=== PATIENT | female | born 1960 | race Caucasian/White ===

== ENCOUNTER 2020-07-11 17:57 | Emergency (ER) | payer MEDICAID, SELFPAY ==
[2020-07-11] VITALS (21 sets, daily range): BP systolic 141–213; BP diastolic 95–153; PULSE 93–144; RESP 12–24; TEMP 36.6; O2SAT 93–100
--- NOTE | ~2020-07-11 | XR_ITS ---
EXAMINATION: XR chest 1V portable DATE: 07/11/2020 19:37 INDICATION: Stroke presenting with weakness, confusion and left arm numbness. TECHNIQUE: frontal view of the chest was obtained. COMPARISON: None FINDINGS: The lungs are clear with no focal airspace opacities, pulmonary edema, pleural effusion or pneumothor ax. The cardiomediastinal silhouette is normal. Postoperative change of prior median sternotomy and l eft atrial appendage clipping. Bones and soft tissues are unremarkable. IMPRESSION: 1. No acute cardiopulmonary disease. Reviewed, dictated and finalized at location A.
--- NOTE | ~2020-07-11 | CT_ITS ---
EXAMINATION: CT brain wo con DATE: 07/11/2020 19:47 INDICATION: Stroke presenting with confusion and left arm numbness. TECHNIQUE: Computed tomography (CT) of the head was performed without intravenous contrast. Sagittal and coronal reconstructions were performed. The mA was adjusted according to patient size. Iterative reconstruction technique was employed. The dose-length product was 605.33 mGy-cm. COMPARISON: None FINDINGS: (3-4 mm hyperdense focus at the left thalamus which could represent small amount of hemorrhage or dys trophic calcification. No acute acute infarction or abnormal extra axial fluid collection. There is m oderate scattered white matter hypoattenuation consistent with chronic small vessel ischemic disease. Ventricles are normal and symmetric. No mass/mass effect. The orbits, paranasal sinuses and mastoid air cells are normal. IMPRESSION: 1. Indeterminate 3 to 4 mm hyperdense focus at the left thalamus which could represent a tiny intrapa renchymal hemorrhage or dystrophic calcification. 2. Moderate scattered white matter hypoattenuation consistent with chronic small vessel ischemic dise ase. Reviewed, dictated and finalized at location A. IMPRESSION: 1. Indeterminate 3 to 4 mm hyperdense focus at the left thalamus which could re present a tiny intraparenchymal hemorrhage or dystrophic calcification. 2. Moderate scattered white matter hypoattenuation consistent with chronic smal l vessel ischemic disease.
--- NOTE | 2020-07-11 19:03 | ECG_ITS ---
Measurements Intervals [place] Rate: 113 P: [place]: 0 QRS: 2 QRSD: 89 T: 8 QT: 366 QTc: 502 Interpretive Statements ATRIAL FLUTTER/TACHYCARDIA WITH RAPID VENTRICULAR RESPONSE ST-T WAVE ABNORMALITY IN ANTEROLAT/INF LEADS- CONSIDER ISCHEMIA BASELINE ARTIFACT- I, II, III, AVR, AVL, AVF, V1, V3-V6 ABNORMAL ECG Electronically Signed On 07-12-2020 7:09:36 CDT by Masoud Jose D.O.
--- NOTE | 2020-07-11 19:16 | PC.NURSE ---
Report given to Supriya CELAYA
--- NOTE | 2020-07-11 19:27 | ED.GENADULT ---
HPI - General Adult General Chief complaint: Neuro Symptoms/Deficit Stated complaint: possible seizure, confusion Time Seen by Provider: 07/11/20 19:17 Source: patient and RN notes reviewed Mode of arrival: ambulatory Limitations: no limitations History of Present Illness HPI narrative: Patient 60 years old white female brought to the emergency room by her daughter from home, complaining of not feeling good for 3 weeks. Also intermittent vomiting, once or twice a day for about 3 to 4 days a week for the last few weeks. Currently feeling dry, nauseated with poor appetite.. Patient reports some numbness of the left upper extremity yesterday lasted for few minutes and then resolved. History of diabetes, stopped taking her Metformin for months, history of hyperlipidemia, does not like to take the cholesterol medication. History of heart surgery in [place] February 2020. Also history of CVA with residual left facial drooping. Patient stopped smoking in May., Currently denying any fever, chills, chest pain, shortness of breath or back pain or headache. Related Data Home Medications Medication Instructions Recorded Confirmed buspirone 10 mg PO TID 07/11/20 07/11/20 citalopram 20 mg PO DAILY 07/11/20 07/11/20 furosemide 40 mg PO BID 07/11/20 07/11/20 losartan 25 mg PO DAILY 07/11/20 07/11/20 metformin 500 mg PO BID 07/11/20 07/11/20 metoprolol tartrate 50 mg PO BID 07/11/20 07/11/20 potassium chloride 20 meq PO DAILY 07/11/20 07/11/20 warfarin 5 mg PO DAILY 07/11/20 07/11/20 Allergies Allergy/AdvReac Type Severity Reaction Status Date / Time No Known Allergies Allergy Verified 07/06/20 08:17 Review of Systems Review of Systems: Narrative: CONSTITUTIONAL: Denies fever, chills, or sweats. EYES: Denies visual changes, redness, or discharge. ENT: Denies rhinorrhea, congestion, sore throat, or otalgia. CARDIOVASCULAR: Denies chest pain, palpitations, or edema. RESPIRATORY: Denies cough or dyspnea. GASTROINTESTINAL: Denies abdominal pain, nausea, vomiting, or diarrhea. GENITOURINARY: Denies dysuria or hematuria. SKIN: Denies rash or itching. MUSCULOSKELETAL: Denies back pain, joint pain, or myalgia. NEUROLOGIC: Denies headache, numbness, or weakness. PSYCHIATRIC: Denies anxiety or depression. FOR[facility]LY [facility], [facility] Past Medical History Medical History Heart attack Stroke Family History Family History Father Hypertension Depression Heart problem Cerebrovascular accident Mother Hypertension Heart problem Depression Cerebrovascular accident Social History Social History Smoking status: Never smoker Alcohol intake: never Substance use: never Gender identity (if verbalized by the patient): Female Exam Narrative: Exam Narrative: General appearance: Well-developed, well-nourished, no family member at the bedside Skin: Normal color Head: Normocephalic, nontraumatic Eyes: Clear conjunctiva ENT: Oropharynx normal, ears normal, nose normal Neck: Supple, nontender Chest and respiratory: Airway patent, no respiratory distress, no accessory muscle use Heart: Tachycardia Abdomen: Soft, nontender, no organomegaly, quiet bowel sounds Vascular: Normal peripheral pulses, normal capillary refill. Musculoskeletal: Normal range of motion, nontender back Neurologic: Alert and oriented ?3, left facial drooping Course Course Emergency Course: Stable Consultations Consultation #1: DR LOPEZ, neurologist at [facility] who accepted patient transfer to ICU Date: 07/11/20 Time: 22:00 Vital Signs
[2020-07-11] MEDS: SODIUM CHLORIDE 0.9% IV 1,000 ML 999 ML IV CONT ×2 (19:55→21:20)
[2020-07-11] MEDS: ONDANSETRON INJ 4 MG/2 ML VIAL IV PUSH (19:57)
[2020-07-11] MEDS: dilTIAZem HCl INJ 25 MG/5 ML VIAL 10 MG IV PUSH ×2 (19:58→23:05)
[2020-07-11 20:07] LABS: Basophils Absolute Auto 0.1 K/mm3 (0.0-0.1); Basophils Percent Auto 0.6 % (0.2-1.2); Eosinophils Absolute Auto 0.1 K/mm3 (0-0.3); Eosinophils Percent Auto 0.7 % (0-4.4); Hematocrit 49.1 % (37.0-47.0); Immature Granulocyte Absolute 0.03 K/mm3 (0.00-0.031); Immature Granulocyte Percent A 0.4 % (0-0.5); Lymphocytes Absolute Auto 0.85 K/mm3 (0.9-3.2); Lymphocytes Percent Auto 10.1 % (18.3-44.2); Mean Corpuscular HGB Conc 30.5 g/dl (32-36); Mean Corpuscular Hemoglobin 27.8 pg (26-34); Mean Corpuscular Volume 91.1 fl (80-100); Mean Platelet Volume 11.9 fl (7.4-10.4); Monocytes Absolute Auto 0.8 K/mm3 (0.1-0.6); Monocytes Percent Auto 8.9 % (2.6-8.5); Neutrophils Absolute Auto 6.7 K/mm3 (1.3-6.7); Neutrophils Percent Auto 79.3 % (45.5-73.1); Platelet Count Result 276 k/mm3 (150-375); Red Blood Count 5.39 M/mm3 (4.2-5.4); Red Cell Distribution Width 15.4 % (11.5-14.5); White Blood Count 8.4 K/mm3 (4.5-10.0)
--- NOTE | 2020-07-11 20:20 | PC.NURSE ---
pt lives at home with family. daughter in law at bedside. pt reports she has been vomiting daily x approx. 1 month, poor appetite and nausea as well. ambulates independently at home without assist. c/o increasing weakness for last month. family states she was acting differently . Pt able to communicate verbally using appropriate language. cardizem bolus administered with documentation on MAY, as well as cardizem infusion. zofran given for nausea. pt currently c/o dry mouth and has ice chips at bedside. On cardiac cath technician.
[2020-07-11 20:23] LABS: INR 1.9; Prothrombin Time 22.6 Seconds (11.1-14.7)
[2020-07-11 20:28] LABS: NT Pro B Type Natriuretic Pept 1550 pg/mL (5-100); Troponin I 0.028 ng/mL (0.000-0.034)
--- NOTE | 2020-07-11 20:30 | PC.NURSE ---
called lab, Jaime, added on 2029
[2020-07-11 20:42] LABS: Alanine Aminotransferase 20 U/L (4-35); Albumin Level 4.2 g/dL (3.5-5.1); Alkaline Phosphatase 216 U/L (38-126); Anion Gap 14 mmol/L (8-16); Aspartate Amino Transferase 25 U/L (14-36); Bilirubin,Total 0.6 mg/dL (0.2-1.3); Blood Urea Nitrogen 22 mg/dL (7-17); Calcium 10.1 mg/dL (8.4-10.2); Carbon Dioxide 27 mmol/L (22-30); Chloride 85 mmol/L (98-107); Estimated CRCL calculation 35 ml/min; Estimated Glomerular Filt Rate 38; Glucose 979 mg/dL (65-105); Potassium 4.5 mmol/L (3.4-5.0); Sodium 126 mmol/L (137-145)
[2020-07-11 20:53] LABS: Glucose Point of Care > 500 (65-105)
--- NOTE | 2020-07-11 20:59 | PC.NURSE ---
called stepan to add on additional labs
[2020-07-11 21:07] LABS: Magnesium 2.1 mg/dL (1.6-2.3); Phosphorus 3.7 mg/dL (2.5-4.5)
[2020-07-11 21:15] LABS: Alveolar/Arterial O2 Gradient 43.3 mmHg; Base Excess ABG 2.6 mEq/l (+/-2.0); Fractional Inspired Oxygen 21 %; HCO3 ABG 24.2 mEq/l (22.0-26.0); Oxygen Content ABG 19.8 %vol (16.0-22.0); Oxygen Saturation ABG 96.1 % (95.0-100.0); Oxyhemoglobin 94.1 % THb (90.0-100.0); PCO2 ABG 29.3 mmHg (35.0-45.0); PO2 ABG 71.3 mmHg (80.0-100.0)
[2020-07-11 21:17] LABS: Device ROOM AIR; Modified Allen's Test Pass; Site Drawn LEFT RADIAL; pH ABG 7.534 (7.350-7.450)
[2020-07-11 22:00] LABS: Glucose Point of Care > 500 (65-105)
[2020-07-11] MEDS: INSULIN HUMAN REGULAR (*BKC) 100 UNITS in SODIUM CHLORIDE 0.9% IV 99 ML 18.4 UNITS IV CONT (22:03)
[2020-07-11] MEDS: INSULIN HUMAN REGULAR (*BKC) 100 UNITS/ML 8 UNITS IV PUSH (22:04)
--- NOTE | 2020-07-11 22:15 | PC.NURSE ---
[facility] not available for quite awhile. called [facility] to request transport. ETA midnight
[2020-07-11 22:30] LABS: Add Urine Microscopic? YES; Appearance Urine Clear (Clear); Bilirubin Urine Negative (Negative); Blood Urine Negative (Negative); Color Urine Straw (Yellow); Glucose Urine UA 3+ mg/dL (Negative); Ketones Urine Negative (Negative); Leukocyte Esterase Ur Negative LEU/UL (Negative); Nitrate Urine Negative (Negative); Protein Urine 1+ mg/dL (Negative); RBC Urine 0-2 /hpf (0-2); Specific Grav Ur 1.028 (1.001-1.035); Squamous Epithelial Cell Urine Occasional /hpf (Few); Urobilinogen Urine Negative mg/dL (<2.0); WBC Urine 0-3 /hpf
--- NOTE | 2020-07-11 22:41 | PC.NURSE ---
called [facility] to request transport. ETA 30 minutes.
[2020-07-11 22:48] LABS: Glucose Point of Care > 500 (65-105)
--- NOTE | 2020-07-11 22:55 | PC.NURSE ---
cancel [facility].
--- NOTE | 2020-07-12 04:48 | PC.NURSE ---
Pt transferred to [facility] ICU for neuro. family provided with address and phone number of main hospital profiler operator, as well as pt assigned room number. Pt on stretcher with EMS and consents to transfer. ED BELIA Reyes with EMS crew for transportation of pt with infusing insulin drip.
== END 2020-07-11 23:30 | disposition short-term general hospital (02) ==
PROVIDERS: Emergency Provider Emergency Medicine; PCP Family Medicine
DX: I61.9 Nontraumatic intracerebral hemorrhage, unspecified (principal); I48.92 Unspecified atrial flutter; E11.01 Type 2 diabetes mellitus with hyperosmolarity with coma; Z87.891 Personal history of nicotine dependence; I25.2 Old myocardial infarction; I69.992 Facial weakness following unspecified cerebrovascular disease; Z91.14 Patient's other noncompliance with medication regimen; Z79.01 Long term (current) use of anticoagulants
CPT/HCPCS: 36415; 36600; 70450; 71045; 80053; 81001; 82805; 82948; 83036; 83735; 83880; 84100; 84443; 84484; 85025; 85610; 93005; 96365; 96366; 96368; 96375; 99291; J1815; J2405; J7030

== ENCOUNTER 2020-08-06 19:09 | Emergency (ER) | payer OTHER, SELFPAY ==
--- NOTE | ~2020-08-06 | XR_ITS ---
XR chest 1V portable 08/06/2020 19:43 Indication: Headache. Open heart surgery. Hypertension. COPD. Procedure: AP portable chest Comparison: 07/11/2020 Findings: Status post median sternotomy for CABG. Heart size normal. There are infiltrates of the lef t mid and lower lung zones. No pleural effusion or pneumothorax. Impression: 1: Infiltrates of the left mid and bilateral lower lung zones which may represent atelectasis, edema or developing pneumonia. Reviewed, dictated and finalized at location A. Impression: 1: Infiltrates of the left mid and bilateral lower lung zones which may represe nt atelectasis, edema or developing pneumonia.
--- NOTE | ~2020-08-06 | CT_ITS ---
EXAMINATION: CT BRAIN W/O DATE: 08/06/2020 19:51 INDICATION: Blurred vision. Recent history of brain bleed. TECHNIQUE: Computed tomography (CT) of the head was performed without intravenous contrast. The dose- length product was 605.33 mGy-cm. Automated exposure control and iterative reconstruction technique w ere employed. COMPARISON: CT dated 07/11/2020 FINDINGS: Normal brain parenchymal volume for age. Normal shane-white differentiation. No acute intrac ranial hemorrhage, infarction, mass or mass effect. There are scattered moderate periventricular and subcortical white matter changes, most likely related to small vessel ischemic disease (microangiopat hy). There is focal calcification in the left thalamus. No ventriculomegaly or midline shift. Midline sagittal images demonstrate a normal corpus callosum, c raniovertebral junction and sella turcica. Basilar cisterns are patent. Paranasal sinuses and mastoids are pneumatized. No depressed skull fractures. IMPRESSION: 1. No acute intracranial abnormality. 2: Chronic age-related findings. Reviewed, dictated and finalized at location A.
[2020-08-06 19:12] VITALS: BP 156/82; PULSE 75; RESP 16; TEMP 36.4; O2SAT 97
--- NOTE | 2020-08-06 19:21 | ED.HA ---
HPI - Headache General Chief Complaint: Headache Stated Complaint: blurred vision Time Seen by Provider: 08/06/20 19:18 Source: patient, family and RN notes reviewed Mode of arrival: ambulatory Limitations: no limitations History of Present Illness HPI Narrative: Patient 60 years old white female brought to the emergency room by her daughter because of intermittent headache, intermittent blurry vision for the last few weeks. Got worse today while cooking. Patient reported that the headache is diffuse all over, and cannot see well, everything is fuzzy. Patient usually takes Tylenol with improvement. Was seen by her family physician 4 days ago and was told to follow-up with correctional casework specialist. Patient came to our emergency room on July 11 and was diagnosed of intracranial hemorrhage and transferred to [facility] at that time. History of diabetes, hyper lipidemia. Patient denies any fever, chills, nausea, vomiting, chest pain, shortness of breath or abdominal pain. Patient denies a focal neuro deficit.. Patient moved to stay with her daughter May 2020, because having trouble with her vision went to correctional casework specialist and had bifocal glasses. Patient did not like it and did not wear it. Related Data Home Medications Medication Instructions Recorded Confirmed buspirone 10 mg PO TID 07/11/20 07/11/20 citalopram 20 mg PO DAILY 07/11/20 07/11/20 furosemide 40 mg PO BID 07/11/20 07/11/20 losartan 25 mg PO DAILY 07/11/20 07/11/20 metformin 500 mg PO BID 07/11/20 07/11/20 metoprolol tartrate 50 mg PO BID 07/11/20 07/11/20 potassium chloride 20 meq PO DAILY 07/11/20 07/11/20 warfarin 5 mg PO DAILY 07/11/20 07/11/20 Allergies Allergy/AdvReac Type Severity Reaction Status Date / Time No Known Allergies Allergy Verified 07/06/20 08:17 Review of Systems Review of Systems: Narrative: CONSTITUTIONAL: Denies fever, chills, or sweats. EYES: Denies visual changes, redness, or discharge. ENT: Denies rhinorrhea, congestion, sore throat, or otalgia. CARDIOVASCULAR: Denies chest pain, palpitations, or edema. RESPIRATORY: Denies cough or dyspnea. GASTROINTESTINAL: Denies abdominal pain, nausea, vomiting, or diarrhea. GENITOURINARY: Denies dysuria or hematuria. SKIN: Denies rash or itching. MUSCULOSKELETAL: Denies back pain, joint pain, or myalgia. NEUROLOGIC: Denies headache, numbness, or weakness. PSYCHIATRIC: Denies anxiety or depression. PMFSH Past Medical History Medical History Heart attack Stroke Family History Family History Father Hypertension Depression Heart problem Cerebrovascular accident Mother Hypertension Heart problem Depression Cerebrovascular accident Social History Social History Smoking status: Never smoker Alcohol intake: never Substance use: never Gender identity (if verbalized by the patient): Female Exam Narrative: Exam Narrative: General appearance: Well-developed, well-nourished. Daughter at the bedside Skin: Normal color Head: Normocephalic, nontraumatic Eyes: Clear conjunctiva ENT: Oropharynx normal, ears normal, nose normal Neck: Supple, nontender Chest and respiratory: Airway patent, no respiratory distress, no accessory muscle use Heart: Regular rate/rhythm Abdomen: Soft, nontender, no organomegaly, quiet bowel sounds Vascular: Normal peripheral pulses, normal capillary refill. Musculoskeletal: Normal range of motion, nontender back Neurologic: Alert and oriented ?3, END MATCHER is normal as tested, no gross motor deficit Course Course Emergen
--- NOTE | 2020-08-06 19:30 | ECG_ITS ---
Measurements Intervals [place] Rate: 69 P: 83 [place]: 312 QRS: 10 QRSD: 88 T: 50 QT: 447 QTc: 481 Interpretive Statements SINUS RHYTHM WITH FIRST DEGREE AV BLOCK BORDERLINE ST-T WAVE ABNORMALITY- LAT/HIGH LAT LEADS ABNORMAL ECG Electronically Signed On 08-07-2020 6:00:42 CDT by Masoud Jose D.O.
[2020-08-06 19:42] LABS: Basophils Absolute Auto 0.1 K/mm3 (0.0-0.1); Basophils Percent Auto 0.9 % (0.2-1.2); Eosinophils Absolute Auto 0.5 K/mm3 (0-0.3); Eosinophils Percent Auto 5.6 % (0-4.4); Hematocrit 34.3 % (37.0-47.0); Hemoglobin 10.6 g/dL (12.0-15.0); Immature Granulocyte Absolute 0.03 K/mm3 (0.00-0.031); Immature Granulocyte Percent A 0.4 % (0-0.5); Lymphocytes Absolute Auto 1.42 K/mm3 (0.9-3.2); Lymphocytes Percent Auto 17.7 % (18.3-44.2); Mean Corpuscular HGB Conc 30.9 g/dl (32-36); Mean Corpuscular Hemoglobin 27.5 pg (26-34); Mean Corpuscular Volume 88.9 fl (80-100); Mean Platelet Volume 9.4 fl (7.4-10.4); Monocytes Absolute Auto 0.6 K/mm3 (0.1-0.6); Monocytes Percent Auto 7.9 % (2.6-8.5); Neutrophils Absolute Auto 5.4 K/mm3 (1.3-6.7); Neutrophils Percent Auto 67.5 % (45.5-73.1); Platelet Count Result 290 k/mm3 (150-375); Red Blood Count 3.86 M/mm3 (4.2-5.4); Red Cell Distribution Width 15.3 % (11.5-14.5)
[2020-08-06 19:52] LABS: Alanine Aminotransferase 18 U/L (4-35); Albumin Level 3.9 g/dL (3.5-5.1); Alkaline Phosphatase 98 U/L (38-126); Anion Gap 7 mmol/L (8-16); Aspartate Amino Transferase 34 U/L (14-36); Bilirubin,Total 0.7 mg/dL (0.2-1.3); Blood Urea Nitrogen 35 mg/dL (7-17); Calcium 9.7 mg/dL (8.4-10.2); Carbon Dioxide 25 mmol/L (22-30); Chloride 109 mmol/L (98-107); Estimated CRCL calculation 35 ml/min; Estimated Glomerular Filt Rate 31; Glucose 72 mg/dL (65-105); Potassium 4.1 mmol/L (3.4-5.0); Sodium 141 mmol/L (137-145)
[2020-08-06 20:02] VITALS: BP 135/89; PULSE 73; RESP 20; O2SAT 94
[2020-08-06] MEDS: MORPHINE SULFATE (*CRX) 4 MG/ML INJ IV PUSH (20:13)
[2020-08-06] MEDS: ONDANSETRON INJ 4 MG/2 ML VIAL IV PUSH (20:13)
[2020-08-06 20:37] LABS: Add Urine Microscopic? YES; Appearance Urine Clear (Clear); Bilirubin Urine Negative (Negative); Blood Urine Negative (Negative); Color Urine Yellow (Yellow); Glucose Urine UA Negative (Negative); Ketones Urine Negative (Negative); Leukocyte Esterase Ur 2+ LEU/UL (Negative); Mucus Urine Rare /lpf; Nitrate Urine Negative (Negative); Protein Urine 1+ mg/dL (Negative); RBC Urine 0-2 /hpf (0-2); Specific Grav Ur 1.014 (1.001-1.035); Squamous Epithelial Cell Urine Moderate /hpf (Few); Urobilinogen Urine Negative mg/dL (<2.0)
[2020-08-06 21:31] VITALS: BP 127/78; PULSE 77; RESP 20; O2SAT 97
== END 2020-08-06 21:46 | disposition home or self-care (01) ==
PROVIDERS: Emergency Provider Emergency Medicine
DX: H53.9 Unspecified visual disturbance (principal); R51.9 Headache, unspecified; I44.0 Atrioventricular block, first degree; Z86.73 Personal history of transient ischemic attack (TIA), and cerebral infarction without residual deficits; I25.2 Old myocardial infarction
CPT/HCPCS: 36415; 70450; 71045; 80053; 81001; 85025; 87086; 93005; 96374; 96375; 99284; J2270; J2405

== ENCOUNTER 2020-10-07 09:24 | Inpatient (IN) | payer OTHER, SELFPAY ==
[2020-10-07] VITALS (26 sets, daily range): BP systolic 137–160; BP diastolic 75–119; PULSE 75–98; RESP 15–28; TEMP 36.4–37.2; O2SAT 94–100; BMI 36.3
--- NOTE | ~2020-10-07 | XR_ITS ---
XR chest 2V DATE: 10/07/2020 09:54 INDICATION: Shortness of breath. COPD. TECHNIQUE: PA and lateral views COMPARISON: 08/02/2020 portable AP chest FINDINGS: Status post sternotomy. Mild cardiomegaly. Aortic calcification and tortuosity. There is mild patchy infiltrate or atelectasis in the right mid to upper lung zone. Mild discoid atelectasis or scarring in the lateral left midlung. No pleural effusion or pulmonary vascular congestion or pneumothorax. Diffuse osteopenia. Status post cholecystectomy. IMPRESSION: Mild cardiomegaly Aortic calcification and tortuosity Mild discoid atelectasis or scarring in the lateral left midlung Mild infiltrate in the right mid-upper lung Reviewed, dictated and finalized at location A.
--- NOTE | ~2020-10-07 | CT_ITS ---
EXAMINATION: CT chest high resolution [facility] EXAM DATE: 10/10/2020 16:23 INDICATION: Dyspnea on exertion, history of COPD. TECHNIQUE: Spiral CT of the chest without contrast. HRCT. Axial, coronal and sagittal images of the c hest were reviewed. Coronal maximum intensity pixel images of chest reviewed. The dose-length produ ct (DLP) for this examination was 187.59 mGy-cm. The exposure was tailored according to patient size (auto mA exposure control), and iterative reconstruction (ASIR) was used as additional dose reductio n technique. Correlation is made to chest x-ray from 10/07. FINDINGS: No intralobular septal thickening on the HRCT. There is mild emphysema and hyperinflation. Regions of numerous punctate tree-in-bud opacities involving the upper lobes, likely postinfectious r esidua. No suspicion of acute airspace disease. There is mosaic attenuation involving both lungs. Thi s is suspected to be most likely air trapping. Differential diagnosis for this includes air trapping (asthma, bronchiolitis obliterans), vasculitis, or less likely chronic groundglass opacity. Heart is normal in size. There are sternotomy wires and there is mitral valve replacement. There are no pleural or pericardial effusions. Tracheobronchial tree is patent. Mild mediastinal lymphaden opathy, probably reactive. There is no pneumothorax. No evidence of coronary arterial calcificatio n. Upper abdomen is unremarkable. There is thoracic spondylosis without osteoblastic or osteolytic lesions identified. IMPRESSION: 1. Mosaic attenuation suspected most likely air trapping, small airways disease. 2. Mild emphysema and hyperinflation. 3. Mild mediastinal lymphadenopathy likely reactive. 4. Postinfectious residua. Reviewed, dictated and finalized at location B. IMPRESSION: 1. Mosaic attenuation suspected most likely air trapping, small airways diseas e. 2. Mild emphysema and hyperinflation. 3. Mild mediastinal lymphadenopathy likely reactive. 4. Postinfectious residua.
--- NOTE | 2020-10-07 09:33 | ECG_ITS ---
Measurements Intervals [place] Rate: 90 P: 255 TX: 288 QRS: -13 QRSD: 85 T: 41 QT: 365 QTc: 447 Interpretive Statements SINUS OR ECTOPIC ATRIAL RHYTHM DELAYED PRECORDIAL R/S TRANSITION LOW QRS VOLTAGE IN PRECORDIAL LEADS BORDERLINE ST-T WAVE ABNORMALITY- LAT/HIGH LAT LEADS BASELINE ARTIFACT- I, II, III, AVR, AVL, AVF, V1-V6 ABNORMAL ECG Electronically Signed On 10-07-2020 16:20:18 CDT by Masoud Jose D.O.
--- NOTE | 2020-10-07 09:34 | ED.SOB ---
HPI - SOB/Dyspnea General Chief Complaint: Shortness of Breath/Dyspnea Stated Complaint: SOB Time Seen by Provider: 10/07/20 09:32 History of Present Illness HPI Narrative: 60 yo female w/ h/o CHF, vavle replacement, htn, DM presents to the ED for SOB. She has had increased SOB for the past 3 days. Worse with exertion. Associated with mild cough and dependent edema. She does not remember who her television tube inspector is. She has had her covid-19 vaccination. Related Data Home Medications Medication Instructions Recorded Confirmed buspirone 10 mg PO DAILY 07/11/20 10/07/20 furosemide 40 mg PO DAILY 07/11/20 10/07/20 metoprolol tartrate 50 mg PO BID 07/11/20 10/07/20 potassium chloride 10 meq PO HS 07/11/20 10/07/20 warfarin 5 mg PO QMWFSU 07/11/20 10/07/20 amlodipine 10 mg PO HS 10/07/20 10/07/20 insulin glargine [Lantus Solostar 36 unit SUBCUT DAILY 10/07/20 10/07/20 U-100 Insulin] insulin lispro [Humalog KwikPen 10 unit SUBCUT TIDWM 10/07/20 10/07/20 Insulin] [id number] 1 tablet PO DAILY 10/07/20 10/07/20 [Alive Women's Gummy Vitamin] sertraline 25 mg PO DAILY 10/07/20 10/07/20 warfarin 4 mg PO QTUTHSA 10/07/20 10/07/20 Allergies Allergy/AdvReac Type Severity Reaction Status Date / Time simvastatin [From Zocor] AdvReac Hypotension Verified 10/07/20 09:34 Review of Systems Review of Systems: All systems reviewed & are unremarkable except as noted in HPI and below Constitutional: Constitutional: Denies chills and Denies fever(s) ENT: Denies sore throat Cardiovascular: Cardiovascular: Denies chest pain Respiratory: Respiratory: Reports cough and Reports dyspnea Gastrointestinal: Gastrointestinal: Reports no additional gastrointestinal complaints Genitourinary: Genitourinary: Reports no additional female genitourinary complaints Musculoskeletal: Musculoskeletal: Denies back pain Neurologic: Reports system reviewed and no additional complaints, except as documented [facility] Past Medical History Medical History Heart attack Stroke Family History Family History Father Hypertension Depression Heart problem Cerebrovascular accident Mother Hypertension Heart problem Depression Cerebrovascular accident Social History Social History Smoking status: Never smoker Alcohol intake: never Substance use: never Gender identity (if verbalized by the patient): Female Spiritual care concerns: No Exam Const: General: no acute distress and alert Orientation/consciousness: patient oriented x3 HENMT: Head: normal to inspection Chest: Chest palpation & inspection: normal inspection of the chest and no tenderness Resp: Effort & Inspection: tachypneic Auscultation: rhonchi Cardio: Rate: regular rate Rhythm: regular rhythm GI: GI Palp: Yes Soft to palpation and No Tenderness to palpation present (GI) Skin: General skin exam: normal color Neuro: General: patient oriented x3, moves all extremities and no focal motor deficits Speech: normal speech Extrem: General: edema bilateral (mild) Course Vital Signs Vital signs: Vital Signs Temperature 36.9 C 10/07/20 09:29 Pulse Rate 92 10/07/20 09:29 Respiratory Rate 26 H 10/07/20 09:29 Blood Pressure 160/98 H 10/07/20 09:29 Pulse Oximetry 97 10/07/20 09:29 Temperature 36.4 C 10/07/20 17:05 Pulse Rate 91 10/07/20 17:27 Respiratory Rate 18 10/07/20 17:05 Blood Pressure 150/75 H 10/07/20 17:05 Pulse Oximetry 96 10/07/20 17:05 MDM - SOB/Dyspnea MDM Narrative Medical decision making narrative: Mild infiltrate on x-ray. BNP>3000. Mild desaturation with ambulation. Most likely CHF exacerbation. Lab Data Result diagrams: 10/07/20 09:45 10/07/20 09:45 Labs: Lab Results 10/07/20 072
[2020-10-07 09:56] LABS: Basophils Absolute Auto 0.1 K/mm3 (0.0-0.1); Basophils Percent Auto 0.5 % (0.2-1.2); Eosinophils Absolute Auto 0.2 K/mm3 (0-0.3); Eosinophils Percent Auto 2.4 % (0-4.4); Hemoglobin 11.4 g/dL (12.0-15.0); Immature Granulocyte Absolute 0.03 K/mm3 (0.00-0.031); Immature Granulocyte Percent A 0.3 % (0-0.5); Lymphocytes Percent Auto 9.1 % (18.3-44.2); Mean Corpuscular HGB Conc 29.2 g/dl (32-36); Mean Corpuscular Volume 88.8 fl (80-100); Mean Platelet Volume 9.7 fl (7.4-10.4); Monocytes Absolute Auto 0.6 K/mm3 (0.1-0.6); Monocytes Percent Auto 5.5 % (2.6-8.5); Neutrophils Absolute Auto 8.2 K/mm3 (1.3-6.7); Neutrophils Percent Auto 82.2 % (45.5-73.1); Platelet Count Result 208 k/mm3 (150-375); Red Blood Count 4.39 M/mm3 (4.2-5.4); Red Cell Distribution Width 15.9 % (11.5-14.5); White Blood Count 9.9 K/mm3 (4.5-10.0)
[2020-10-07 10:09] LABS: Anion Gap 10 mmol/L (8-16); Blood Urea Nitrogen 30 mg/dL (7-17); Calcium 9.7 mg/dL (8.4-10.2); Carbon Dioxide 19 mmol/L (22-30); Chloride 113 mmol/L (98-107); Estimated CRCL calculation 35 ml/min; Estimated Glomerular Filt Rate 35; Glucose 119 mg/dL (65-110); Potassium 4.4 mmol/L (3.4-5.0); Sodium 142 mmol/L (137-145)
--- NOTE | 2020-10-07 10:37 | PC.NURSE ---
Marcelo called lab and talked to prasanna stout on a BNP at 1037
[2020-10-07 10:55] LABS: NT Pro B Type Natriuretic Pept 3130 pg/mL (5-100)
--- NOTE | 2020-10-07 11:00 | PC.NURSE ---
Marcelo called lab, Jazmin, added on PT INR, PTT
--- NOTE | 2020-10-07 11:16 | PC.NURSE ---
pt ambulatory to bathroom. upon returning to room pt sob, tachypneic. pulse ox 90%. recovered upon resting for a short time. pulse ox increased to 98% room air. family at bedside.
[2020-10-07] MEDS: FUROSEMIDE INJ 40 MG/4 ML VIAL IV PUSH ×2 (11:53→20:32)
[2020-10-07 12:03] LABS: Glucose Point of Care 81 mg/dl (65-105)
--- NOTE | 2020-10-07 12:04 | PC.NURSE ---
talisha called lab again, viktoria, asked about pt inr ptt
[2020-10-07 12:23] LABS: INR 2.2; Prothrombin Time 23.7 Seconds (11.1-14.7)
[2020-10-07 12:24] LABS: Partial Thromboplastin Time 37.1 SECONDS (22.3-36.8)
[2020-10-07] MEDS: LABETALOL HCL INJ 100 MG/20 ML VIAL 10 MG IV PUSH (12:25)
--- NOTE | 2020-10-07 16:36 | PM.IMHP ---
H&P: HPI History of Present Illness Date/Time: 10/07/20 16:36Patient is 60-year-old female with history CABG in February of 2020, aortic valve replacement now taking warfarin, history of diabetes states is not very compliant with her diabetic medication, patient presented emergency depart with complaint of shortness of breath for last 4 days, lower extremities swelling, and a chest pain, patient denies any persistent cough, fever chills, patient has received both of her vaccine 4 COVID 19, most likely patient has examination of congestive heart failure etiology uncertain will do the cardiac echo to further evaluate, and will diurese the monitor Is and Os, will have PT/OT evaluate patient Chief Complaint: shortness of breath Review of Systems Review of Systems: All systems reviewed & are unremarkable except as noted in HPI and below PMFSH Past Medical History Medical History Heart attack Stroke Family History Family History Father Hypertension Depression Heart problem Cerebrovascular accident Mother Hypertension Heart problem Depression Cerebrovascular accident Social History Social History Smoking status: Never smoker Alcohol intake: never Substance use: never Gender identity (if verbalized by the patient): Female Spiritual care concerns: No Meds Home Medications and Allergies Home Medications Medication Instructions Recorded Confirmed Type buspirone 10 mg PO DAILY 07/11/20 10/07/20 History furosemide 40 mg PO DAILY 07/11/20 10/07/20 History metoprolol tartrate 50 mg PO BID 07/11/20 10/07/20 History potassium chloride 10 meq PO HS 07/11/20 10/07/20 History warfarin 5 mg PO QMWFSU 07/11/20 10/07/20 History amlodipine 10 mg PO HS 10/07/20 10/07/20 History insulin glargine [Lantus Solostar 36 unit SUBCUT DAILY 10/07/20 10/07/20 History U-100 Insulin] insulin lispro [Humalog KwikPen 10 unit SUBCUT TIDWM 10/07/20 10/07/20 History Insulin] [id number] 1 tablet PO DAILY 10/07/20 10/07/20 History [Alive Women's Gummy Vitamin] sertraline 25 mg PO DAILY 10/07/20 10/07/20 History warfarin 4 mg PO QTUTHSA 10/07/20 10/07/20 History Allergies Allergy/AdvReac Type Severity Reaction Status Date / Time simvastatin [From Zocor] AdvReac Hypotension Verified 10/07/20 09:34 Vital Signs Vital Signs - 24 hr 10/07/20 09:29 10/07/20 09:32 10/07/20 09:45 Temperature 98.4 F Pulse Rate 92 91 81 Respiratory Rate 26 H 28 H 23 H Blood Pressure 160/98 H Pulse Oximetry 97 98 100 10/07/20 09:47 10/07/20 10:00 10/07/20 10:15 Temperature Pulse Rate 81 75 75 Respiratory Rate 15 19 21 H Blood Pressure 137/85 Pulse Oximetry 100 95 98 10/07/20 10:30 10/07/20 10:45 10/07/20 11:00 Temperature Pulse Rate 77 79 80 Respiratory Rate 21 H 19 21 H Blood Pressure Pulse Oximetry 95 96 97 10/07/20 11:15 10/07/20 11:30 10/07/20 11:45 Temperature Pulse Rate 84 78 81 Respiratory Rate 21 H 16 19 Blood Pressure Pulse Oximetry 95 96 98 10/07/20 11:57 10/07/20 11:59 10/07/20 12:00 Temperature Pulse Rate 87 87 87 Respiratory Rate 21 H 26 H 25 H Blood Pressure 160/119 H 147/100 H Pulse Oximetry 97 98 97 10/07/20 12:01 10/07/20 12:15 10/07/20 12:23 Temperature Pulse Rate 87 88 89 Respiratory Rate 18 22 H 16 Blood Pressure 139/102 H 155/92 H Pulse Oximetry 96 96 98 Exam Narrative: Exam Narrative: moderately obese Patient is comfortable, NAD HEENT: eyes are clear and none icteric LUNGS: bilateral fair air with rales and rhonchi HEART: RR S1S2 ABD: BS+, Soft and nontender Lower extremities: edema SKIN: nonjaundiced Neuro: grossly intact. H&P: Results Labs Labs: Short CBC 10/07/20 Range/Units 09:45 WBC 9.9 (4.5-10.0) K/mm3 Hgb 11.4 L (12.
--- NOTE | 2020-10-07 17:04 | ADMGEN ---
This patient, Danielle Jasmine, was admitted to [facility] Surg Room 331-01. Patient/family oriented to hospital policies and general routines including ID bracelet, bed and alarms, visiting hours, pain management, procedures, bathroom and other care routines, personal items, smoking policy, room service/diet, and visiting hours. Information on how to activate the Rapid Response Team has been discussed. Patient/Family are encouraged to report perceived risks to care and to ask questions if they do not understand what they are told or what they should do.
[2020-10-07 17:35] LABS: Glucose Point of Care 94 mg/dl (65-105)
[2020-10-07] MEDS: ACETAMINOPHEN 325 MG TABLET 650 MG PO (20:27)
[2020-10-07] MEDS: WARFARIN (*PBKC) 5 MG TABLET PO (20:31)
[2020-10-07] MEDS: amLODIPine BESYLATE 5 MG TABLET 10 MG PO (20:32)
[2020-10-07] MEDS: METOPROLOL TARTRATE 50 MG TAB PO (20:32)
[2020-10-07] MEDS: POTASSIUM CHLORIDE 10 MEQ TABLET PO (20:33)
[2020-10-07 21:49] LABS: Glucose Point of Care 207 mg/dl (65-105)
[2020-10-08] VITALS (12 sets, daily range): BP systolic 141–157; BP diastolic 66–95; PULSE 73–130; RESP 16–20; TEMP 36.4–36.7; O2SAT 97–100
--- NOTE | 2020-10-08 | ECHO_ITS ---
Patient Info Name: Danielle Jasmine Age: 60 years : 1960 Gender: Female Ht: 60 in Wt: 190 lbs BSA: 1.96 m2 HR: 85 bpm BP: 157 / 66 mmHg Heart Rhythm: Sinus Rhythm Technical Quality: Fair Exam Date: 10/08/2020 3:51 PM Exam Location: [facility] Pulmonary Exam Room: 331 Patient Status: Outpatient Admit Date: 10/07/2020 Staff Ordering Physician: Riki Ybarra MD Dip Brazier: Aruna Beth RDCS Attending Provider: Steven Estrella MD Exam Type: CA echo doppler color flow Study Info Indications - sob cad MVR Complete two-dimensional, color flow and Doppler transthoracic echocardiogram is performed. Summary 1. Complete two-dimensional, color flow and Doppler transthoracic echocardiogram is performed. 2. Normal left ventricular size and thickness with good contractility of all segments. No segmental wall motion abnormalities noted. Ejection fraction is calculated 60%, visually greater than 70%. Grade 2 diastolic dysfunction is present. 3. Left atrial chamber dimension is moderately enlarged. 4. Bioprosthetic mitral valve appears normal with normal gradients. Mitral valve area 1.9 cm2, mean gradient 8 mmHg. Redundant chordae is noted in the subvalvular apparatus. No evidence of vegetations. 5. There is mild tricuspid valve regurgitation. 6. Mild pulmonary hypertension, estimated pulmonary arterial systolic pressure is 40 mmHg. 7. Normal sinus rhythm with first-degree AV block. Left Ventricle Left ventricular chamber dimension is normal. Left ventricular systolic function is normal, estimated at >70%. There is no increased left ventricular wall thickness. Left ventricular septal wall motion is normal. The left ventricular diastolic function is grade II diastolic dysfunction. Right Ventricle Right ventricular chamber dimension is normal. Right ventricular systolic function is normal. Left Atria Left atrial chamber dimension is moderately enlarged. Right Atria Right atrial chamber dimension is normal. Aortic Valve The aortic valve is trileaflet. There is no aortic valve sclerosis. There is no aortic valve stenosis. There is no aortic valve regurgitation. Pulmonic Valve The pulmonic valve is normal. There is no pulmonic valve stenosis. There is no pulmonic regurgitation. Mitral Valve The bioprosthetic mitral valve leaflefts are Empty. There is no stenosis of the bioprosthetic mitral valve. There is trace regurgitation of the bioprosthetic mitral valve. Tricuspid Valve The tricuspid valve leaflets are normal. There is no significant tricuspid valve stenosis. There is mild tricuspid valve regurgitation. Mild pulmonary hypertension, estimated pulmonary arterial systolic pressure is 40 mmHg. Pericardium/Pleural The pericardium appears normal. There is no pericardial effusion. Inferior Vena Cava Normal inferior vena cava with >50% collapse upon inspiration consistent with Empty right atrial pressure, 10 mmHg. Aorta The aortic root size at the sinus of Valsalva is normal. The prox ascending aorta size is normal. Left Ventricular Outflow Tract Name Value Normal LVOT 2D LVOT Diameter 2.0 cm LVOT Doppler
[2020-10-08 06:49] LABS: Hematocrit 41.2 % (37.0-47.0); Hemoglobin 12.3 g/dL (12.0-15.0); Mean Corpuscular HGB Conc 29.9 g/dl (32-36); Mean Corpuscular Hemoglobin 26.1 pg (26-34); Mean Corpuscular Volume 87.5 fl (80-100); Mean Platelet Volume 10.3 fl (7.4-10.4); Platelet Count Result 234 k/mm3 (150-375); Red Blood Count 4.71 M/mm3 (4.2-5.4); Red Cell Distribution Width 16.1 % (11.5-14.5); White Blood Count 8.6 K/mm3 (4.5-10.0)
[2020-10-08 07:00] LABS: INR 2.1; Prothrombin Time 23.3 Seconds (11.1-14.7)
[2020-10-08 07:15] LABS: Anion Gap 11 mmol/L (8-16); Blood Urea Nitrogen 32 mg/dL (7-17); Calcium 9.6 mg/dL (8.4-10.2); Carbon Dioxide 23 mmol/L (22-30); Chloride 108 mmol/L (98-107); Estimated CRCL calculation 29 ml/min; Estimated Glomerular Filt Rate 29; Glucose 127 mg/dL (65-110); Sodium 142 mmol/L (137-145)
[2020-10-08 08:11] LABS: Glucose Point of Care 112 mg/dl (65-105)
[2020-10-08] MEDS: METOPROLOL TARTRATE 50 MG TAB PO ×2 (08:20→20:42)
[2020-10-08] MEDS: MULTIVITAMINS THERAPEUTIC TAB (*BKC) 1 TABLET PO (08:20)
[2020-10-08] MEDS: FUROSEMIDE INJ 40 MG/4 ML VIAL IV PUSH ×2 (08:21→20:42)
[2020-10-08] MEDS: SERTRALINE HCL 25 MG TABLET PO (08:21)
[2020-10-08] MEDS: busPIRone HCL 10 MG TABLET PO (08:21)
[2020-10-08] MEDS: INSULIN GLARGINE (*BKC) 100 UNITS/ML 20 UNITS SUB-Q (08:37)
[2020-10-08] MEDS: LOPERAMIDE HCL 2 MG CAPSULE 4 MG PO (08:52)
[2020-10-08 11:06] LABS: Hemoglobin A1C 5.7 % (<5.7)
[2020-10-08 12:11] LABS: Glucose Point of Care 113 mg/dl (65-105)
--- NOTE | 2020-10-08 13:56 | PM.IMPN ---
Progress Note: A&P Assessment and Plan (1) Heart disease: Code(s): I51.9 - Heart disease, unspecified Status: Acute Assessment and Plan: 10/08/20 13:56 Patient is 60-year-old female with history CABG in February of 2020, aortic valve replacement now taking warfarin, history of diabetes states is not very compliant with her diabetic medication, patient presented emergency depart with complaint of shortness of breath for last 4 days, lower extremities swelling, and a chest pain, patient denies any persistent cough, fever chills, patient has received both of her vaccine 4 COVID 19, most likely patient has examination of congestive heart failure etiology uncertain will do the cardiac echo to further evaluate, and will diurese the monitor Is and Os, will have PT/OT evaluate patient 10/08 patient presented with a shortness of breath most likely exacerbation of congestive heart failure history CABG, Cardiac echo is pending, patient being diuresed, patient states feeling much not a short of breath as when she arrived, will have a PT OT evaluate the patient, will follow on cardiac echo and further recommendation to follow, patient INR today 2.1 patient has a prosthetic aortic valve patient does not INR range will check with family and further recommendation to follow. (2) H/O prosthetic heart valve: Code(s): Z95.2 - Presence of prosthetic heart valve Status: Acute Assessment and Plan: patient with aortic prosthetic Valve on Coumadin will continue and monitor INR (3) Diabetes: Code(s): E11.9 - Type 2 diabetes mellitus without complications Status: Acute Assessment and Plan: will resume home medication and monitor (4) Chronic anticoagulation: Code(s): Z79.01 - [facility] (current) use of anticoagulants Status: Acute Assessment and Plan: will continue warfarin and monitor INR (5) ANNEMARIE (acute kidney injury): Code(s): N17.9 - Acute kidney failure, unspecified Status: Acute Assessment and Plan: most likely acute on chronic secondary diabetes, hypertension and patient is being diuresed will monitor kidney function Subjective Date/time seen: 10/08/20 13:56 Patient is 60-year-old female with history CABG in February of 2020, aortic valve replacement now taking warfarin, history of diabetes states is not very compliant with her diabetic medication, patient presented emergency depart with complaint of shortness of breath for last 4 days, lower extremities swelling, and a chest pain, patient denies any persistent cough, fever chills, patient has received both of her vaccine 4 COVID 19, most likely patient has examination of congestive heart failure etiology uncertain will do the cardiac echo to further evaluate, and will diurese the monitor Is and Os, will have PT/OT evaluate patient 10/08 patient presented with a shortness of breath most likely exacerbation of congestive heart failure history CABG, Cardiac echo is pending, patient being diuresed, patient states feeling much not a short of breath as when she arrived, will have a PT OT evaluate the patient, will follow on cardiac echo and further recommendation to follow, patient INR today 2.1 patient has a prosthetic aortic valve patient does not INR range will check with family and further recommendation to follow. Review of Systems Review of Systems: All systems reviewed & are unremarkable except as noted in HPI and below Exam Narrative: Exam Narrative: moderately obese Patient is comfortable, NAD HEENT: eyes are clear and none icteric LUNGS: bilateral fair air with rales and rhonchi HEART: RR S1S2 ABD: BS+, Soft and nontender Lower extremities: edema SKIN: nonjaundiced Neuro: grossly intact. Objective Data Vital Signs Vital Signs: Vital Signs - 24 hr 10/07/20 16:41 10/07/20 16:53 10/07/20 17:03 Temperature Pulse Rate 90 93 93 Respiratory Rate 16 18 18 Blood Pressure 151/94
--- NOTE | 2020-10-08 15:02 | PC.NURSE ---
Spoke with Dr. Nicole Doan office about patients INR level. It needs to be between 2.5 and 3.[address] Ybarra notified of this.
[2020-10-08 16:49] LABS: Glucose Point of Care 104 mg/dl (65-105)
[2020-10-08] MEDS: WARFARIN (*PBKC) 5 MG TABLET PO (17:05)
[2020-10-08] MEDS: ENOXAPARIN 100 MG/ML SYRINGE 85 MG SUB-Q (17:06)
[2020-10-08] MEDS: amLODIPine BESYLATE 5 MG TABLET 10 MG PO (20:42)
[2020-10-08] MEDS: ACETAMINOPHEN 325 MG TABLET 650 MG PO (20:43)
[2020-10-08] MEDS: POTASSIUM CHLORIDE 10 MEQ TABLET PO (20:43)
[2020-10-08 21:35] LABS: Glucose Point of Care 143 mg/dl (65-105)
[2020-10-09] VITALS (10 sets, daily range): BP systolic 131–141; BP diastolic 88–92; PULSE 80–98; RESP 18; TEMP 36.3–37.1; O2SAT 94–97
[2020-10-09] MEDS: ENOXAPARIN 100 MG/ML SYRINGE 85 MG SUB-Q (05:47)
[2020-10-09 06:33] LABS: Hematocrit 44.6 % (37.0-47.0); Hemoglobin 13.3 g/dL (12.0-15.0); Mean Corpuscular HGB Conc 29.8 g/dl (32-36); Mean Corpuscular Hemoglobin 25.6 pg (26-34); Mean Corpuscular Volume 85.9 fl (80-100); Mean Platelet Volume 10.1 fl (7.4-10.4); Platelet Count Result 254 k/mm3 (150-375); Red Blood Count 5.19 M/mm3 (4.2-5.4); Red Cell Distribution Width 15.9 % (11.5-14.5); White Blood Count 7.3 K/mm3 (4.5-10.0)
[2020-10-09 06:43] LABS: INR 2.5; Prothrombin Time 26.1 Seconds (11.1-14.7)
[2020-10-09 06:48] LABS: Anion Gap 10 mmol/L (8-16); Blood Urea Nitrogen 44 mg/dL (7-17); Calcium 9.8 mg/dL (8.4-10.2); Carbon Dioxide 24 mmol/L (22-30); Chloride 106 mmol/L (98-107); Estimated CRCL calculation 29 ml/min; Estimated Glomerular Filt Rate 29; Glucose 123 mg/dL (65-110); Potassium 3.9 mmol/L (3.4-5.0); Sodium 140 mmol/L (137-145)
[2020-10-09 08:06] LABS: Glucose Point of Care 129 mg/dl (65-105)
[2020-10-09] MEDS: busPIRone HCL 10 MG TABLET PO (08:14)
[2020-10-09] MEDS: LOPERAMIDE HCL 2 MG CAPSULE 4 MG PO (08:14)
[2020-10-09] MEDS: SERTRALINE HCL 25 MG TABLET PO (08:14)
[2020-10-09] MEDS: MULTIVITAMINS THERAPEUTIC TAB (*BKC) 1 TABLET PO (08:15)
[2020-10-09] MEDS: METOPROLOL TARTRATE 50 MG TAB PO ×2 (08:15→21:01)
[2020-10-09] MEDS: FUROSEMIDE INJ 40 MG/4 ML VIAL IV PUSH ×2 (08:16→21:01)
[2020-10-09] MEDS: INSULIN GLARGINE (*BKC) 100 UNITS/ML 20 UNITS SUB-Q (08:47)
[2020-10-09] MEDS: INSULIN ASPART (*BKC) 100 UNITS/ML SUB-Q ×2 (08:47→17:04)
--- NOTE | 2020-10-09 12:07 | PM.IMPN ---
Progress Note: A&P Assessment and Plan (1) Heart disease: Code(s): I51.9 - Heart disease, unspecified Status: Acute Assessment and Plan: 10/08/20 13:56 Patient is 60-year-old female with history CABG in February of 2020, aortic valve replacement now taking warfarin, history of diabetes states is not very compliant with her diabetic medication, patient presented emergency depart with complaint of shortness of breath for last 4 days, lower extremities swelling, and a chest pain, patient denies any persistent cough, fever chills, patient has received both of her vaccine 4 COVID 19, most likely patient has examination of congestive heart failure etiology uncertain will do the cardiac echo to further evaluate, and will diurese the monitor Is and Os, will have PT/OT evaluate patient 10/08 patient presented with a shortness of breath most likely exacerbation of congestive heart failure history CABG, Cardiac echo is pending, patient being diuresed, patient states feeling much not a short of breath as when she arrived, will have a PT OT evaluate the patient, will follow on cardiac echo and further recommendation to follow, patient INR today 2.1 patient has a prosthetic aortic valve patient does not INR range will check with family and further recommendation to follow. 10/09 shortness of breath is improving. Continue IV diuresis as ordered. Echo is pending. INR is 2.5 which is therapeutic for a prosthetic aortic valve. Will stop her Lovenox today. She is ambulating okay. 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 improving. may shower telemetry can be taken off. chronic afib. may be home tomorrow Subjective Date/time seen: 10/09/20 12:07 Interval history: she is feeling better shortness of breath has improved she is ambulating well. No fever chills no cough. Leg swelling is improving Review of Systems Review of Systems: All systems reviewed & are unremarkable except as noted in HPI and below Exam Narrative: Exam Narrative: moderately obese not in acute distress Patient is comfortable, NAD HEENT: eyes are clear and none icteric LUNGS: bilateral fair air with rales and rhonchi HEART: RR S1S2 ABD: BS+, Soft and nontender Lower extremities: 1+ pitting edema lower extremities, no cyanosis or clubbing SKIN: nonjaundiced Neuro: grossly intact. alert and oriented x3 Objective Data Vital Signs Vital Signs: Vital Signs - 24 hr 10/08/20 13:35 10/08/20 14:00 10/08/20 16:00 Temperature 97.6 F Pulse Rate 85 88 Respiratory Rate 16 Blood Pressure 146/85 H Pulse Oximetry 97 100 10/08/20 20:00 10/08/20 20:42 10/08/20 21:47 Temperature 98.1 F Pulse Rate 92 92 89 Respiratory Rate 18 Blood Pressure 141/95 H Pulse Oximetry 97 10/09/20 00:00 10/09/20 04:00 10/09/20 05:34 Temperature 97.8 F Pulse Rate 84 82 87 Respiratory Rate 18 Blood Pressure 141/92 H Pulse Oximetry 96 10/09/20 08:15 Temperature Pulse Rate 93 Respiratory Rate Blood Pressure Pulse Oximetry Intake/Output In
[2020-10-09 12:51] LABS: Glucose Point of Care 99 mg/dl (65-105)
[2020-10-09] MEDS: WARFARIN (*PBKC) 5 MG TABLET PO (16:03)
[2020-10-09 17:07] LABS: Glucose Point of Care 149 mg/dl (65-105)
[2020-10-09] MEDS: POTASSIUM CHLORIDE 10 MEQ TABLET PO (21:01)
[2020-10-09] MEDS: amLODIPine BESYLATE 5 MG TABLET 10 MG PO (21:01)
[2020-10-09 22:00] LABS: Glucose Point of Care 163 mg/dl (65-105)
[2020-10-10 05:47] VITALS: BP 161/85; PULSE 99; RESP 18; TEMP 36.6; O2SAT 94
[2020-10-10 06:41] LABS: Hematocrit 41.2 % (37.0-47.0); Hemoglobin 12.7 g/dL (12.0-15.0); Mean Corpuscular HGB Conc 30.8 g/dl (32-36); Mean Corpuscular Hemoglobin 26.1 pg (26-34); Mean Corpuscular Volume 84.8 fl (80-100); Mean Platelet Volume 9.7 fl (7.4-10.4); Platelet Count Result 259 k/mm3 (150-375); Red Blood Count 4.86 M/mm3 (4.2-5.4); Red Cell Distribution Width 15.9 % (11.5-14.5); White Blood Count 7.2 K/mm3 (4.5-10.0)
[2020-10-10 06:51] LABS: Anion Gap 12 mmol/L (8-16); Blood Urea Nitrogen 48 mg/dL (7-17); Calcium 9.6 mg/dL (8.4-10.2); Carbon Dioxide 21 mmol/L (22-30); Chloride 107 mmol/L (98-107); Estimated CRCL calculation 29 ml/min; Estimated Glomerular Filt Rate 29; Glucose 131 mg/dL (65-110); Sodium 140 mmol/L (137-145)
[2020-10-10 06:52] LABS: INR 3.1; Prothrombin Time 30.8 Seconds (11.1-14.7)
[2020-10-10 07:46] LABS: Glucose Point of Care 125 mg/dl (65-105)
[2020-10-10] MEDS: INSULIN ASPART (*BKC) 100 UNITS/ML SUB-Q ×4 (08:50→17:27)
[2020-10-10] MEDS: INSULIN GLARGINE (*BKC) 100 UNITS/ML 20 UNITS SUB-Q (08:53)
[2020-10-10] MEDS: busPIRone HCL 10 MG TABLET PO (08:58)
[2020-10-10 08:59] VITALS: PULSE 84
[2020-10-10] MEDS: LOPERAMIDE HCL 2 MG CAPSULE 4 MG PO (08:59)
[2020-10-10] MEDS: METOPROLOL TARTRATE 50 MG TAB PO ×2 (08:59→20:12)
[2020-10-10] MEDS: FUROSEMIDE INJ 40 MG/4 ML VIAL IV PUSH (08:59)
[2020-10-10] MEDS: MULTIVITAMINS THERAPEUTIC TAB (*BKC) 1 TABLET PO (09:00)
[2020-10-10] MEDS: SERTRALINE HCL 25 MG TABLET PO (09:00)
[2020-10-10 11:39] LABS: Glucose Point of Care 144 mg/dl (65-105)
--- NOTE | 2020-10-10 12:25 | PM.IMPN ---
Progress Note: A&P Assessment and Plan (1) Heart disease: Code(s): I51.9 - Heart disease, unspecified Status: Acute Assessment and Plan: 10/08/20 13:56 Patient is 60-year-old female with history CABG in February of 2020, aortic valve replacement now taking warfarin, history of diabetes states is not very compliant with her diabetic medication, patient presented emergency depart with complaint of shortness of breath for last 4 days, lower extremities swelling, and a chest pain, patient denies any persistent cough, fever chills, patient has received both of her vaccine 4 COVID 19, most likely patient has examination of congestive heart failure etiology uncertain will do the cardiac echo to further evaluate, and will diurese the monitor Is and Os, will have PT/OT evaluate patient 10/08 patient presented with a shortness of breath most likely exacerbation of congestive heart failure history CABG, Cardiac echo is pending, patient being diuresed, patient states feeling much not a short of breath as when she arrived, will have a PT OT evaluate the patient, will follow on cardiac echo and further recommendation to follow, patient INR today 2.1 patient has a prosthetic aortic valve patient does not INR range will check with family and further recommendation to follow. 10/09 shortness of breath is improving. Continue IV diuresis as ordered. Echo is pending. INR is 2.5 which is therapeutic for a prosthetic aortic valve. Will stop her Lovenox today. She is ambulating okay. Recheck labs in the morning if stable will discharge her home tomorrow 10/10: shortness of breath worse today compared to yesterday on IV Lasix 40 mg b.i.d.. She appears euvolemic today so I will transition this to 40 mg daily. The chest x-ray looks pretty unremarkable on admission, will obtain chest CT. echo reviewed, no significant abnormalities noted to be causing these symptoms. If below workup is negative, consider stress test either outpatient or inpatient. See below (2) H/O prosthetic heart valve: Code(s): Z95.2 - Presence of prosthetic heart valve Status: Acute Assessment and Plan: On the echo,Bioprosthetic mitral valve appears normal with normal gradients. Mitral valve area 1.9 cm2, mean gradient 8 mmHg. Redundant chordae is noted in the subvalvular apparatus. No evidence of vegetations. - INR 3.1 today, and range. Continue Coumadin (3) Diabetes: Code(s): E11.9 - Type 2 diabetes mellitus without complications Status: Acute Assessment and Plan: last [id number] - A1c 5.7 - continue Lantus 20 units at night as well as sliding scale insulin (4) Chronic anticoagulation: Code(s): Z79.01 - [facility] (current) use of anticoagulants Status: Acute Assessment and Plan: will continue warfarin and monitor INR (5) ANNEMARIE (acute kidney injury): Code(s): N17.9 - Acute kidney failure, unspecified Status: Acute Assessment and Plan: appears relatively stable - transition Lasix to IV once a day - monitor (6) Dyspnea on exertion: Code(s): R06.00 - Dyspnea, unspecified Status: Acute Assessment and Plan: patient continues to have dyspnea on exertion and was better yesterday but is unfortunately worse today - this sounds like this started when she ran out of her Anoro so may consider COPD however she has no wheezing at this time - chest x-ray has mention of possible infiltrate that could be pneumonia? Will obtain CT of the chest to assess for further pathology - patient appears euvolemic with no crackles, CHF may not be the only factor at this time. echo looks okay - consider stress testing if above testing is negative - consider steroids and antibiotics if CT of the chest comes back with evidence of COPD or pneumonia - patient would benefit from an outpatient sleep apnea test if she has not already done so. She has mild pulmonary hypertension on
[2020-10-10 13:33] LABS: Troponin I < 0.012 ng/mL (0.000-0.034)
[2020-10-10 14:00] VITALS: BP 136/82; PULSE 91; RESP 18; TEMP 37.3; O2SAT 100
[2020-10-10 16:54] LABS: Glucose Point of Care 214 mg/dl (65-105)
[2020-10-10] MEDS: predniSONE 20 MG TABLET 40 MG PO (18:54)
--- NOTE | 2020-10-10 19:28 | PHAR ---
10/10 INR 3.1 OK TO GIVE PER NURSE
[2020-10-10] MEDS: amLODIPine BESYLATE 5 MG TABLET 10 MG PO (20:11)
[2020-10-10] MEDS: WARFARIN (*PBKC) 5 MG TABLET PO (20:11)
[2020-10-10 20:12] VITALS: PULSE 96
[2020-10-10] MEDS: POTASSIUM CHLORIDE 10 MEQ TABLET PO (20:12)
[2020-10-10 20:31] VITALS: PULSE 91; RESP 20
[2020-10-10 20:59] LABS: Glucose Point of Care 187 mg/dl (65-105)
[2020-10-10 22:00] VITALS: BP 148/95; PULSE 94; RESP 18; TEMP 36.7; O2SAT 95
[2020-10-11 06:00] VITALS: BP 144/81; PULSE 103; RESP 18; TEMP 36.7; O2SAT 97
[2020-10-11 06:55] LABS: Hematocrit 42.3 % (37.0-47.0); Hemoglobin 12.7 g/dL (12.0-15.0); Mean Corpuscular Hemoglobin 25.9 pg (26-34); Mean Corpuscular Volume 86.2 fl (80-100); Platelet Count Result 240 k/mm3 (150-375); Red Blood Count 4.91 M/mm3 (4.2-5.4); Red Cell Distribution Width 15.5 % (11.5-14.5); White Blood Count 7.5 K/mm3 (4.5-10.0)
[2020-10-11 07:05] LABS: Alanine Aminotransferase 23 U/L (4-35); Albumin Level 4.1 g/dL (3.5-5.1); Alkaline Phosphatase 95 U/L (38-126); Anion Gap 12 mmol/L (8-16); Aspartate Amino Transferase 27 U/L (14-36); Bilirubin,Total 0.5 mg/dL (0.2-1.3); Blood Urea Nitrogen 52 mg/dL (7-17); Calcium 9.8 mg/dL (8.4-10.2); Carbon Dioxide 17 mmol/L (22-30); Chloride 107 mmol/L (98-107); Estimated CRCL calculation 31 ml/min; Estimated Glomerular Filt Rate 31; Glucose 304 mg/dL (65-110); Magnesium 2.2 mg/dL (1.6-2.3); Potassium 4.5 mmol/L (3.4-5.0); Sodium 136 mmol/L (137-145)
[2020-10-11 07:13] LABS: INR 3.1; Prothrombin Time 30.8 Seconds (11.1-14.7)
[2020-10-11 08:00] LABS: Thyroid Stimulating Hormone Reflex 0.786 uIU/mL (0.465-4.68)
[2020-10-11] MEDS: INSULIN ASPART (*BKC) 100 UNITS/ML SUB-Q ×4 (08:20→12:19)
[2020-10-11 08:21] LABS: Glucose Point of Care 292 mg/dl (65-105)
[2020-10-11] MEDS: INSULIN GLARGINE (*BKC) 100 UNITS/ML 20 UNITS SUB-Q (08:22)
[2020-10-11] MEDS: predniSONE 20 MG TABLET 40 MG PO (08:23)
[2020-10-11] MEDS: busPIRone HCL 10 MG TABLET PO (08:23)
[2020-10-11 08:24] VITALS: PULSE 103
[2020-10-11] MEDS: METOPROLOL TARTRATE 50 MG TAB PO (08:24)
[2020-10-11] MEDS: MULTIVITAMINS THERAPEUTIC TAB (*BKC) 1 TABLET PO (08:24)
[2020-10-11] MEDS: SERTRALINE HCL 25 MG TABLET PO (08:24)
[2020-10-11] MEDS: FUROSEMIDE 40 MG TABLET PO (11:53)
[2020-10-11] MEDS: INSULIN GLARGINE (*BKC) 100 UNITS/ML 16 UNITS SUB-Q (12:16)
[2020-10-11] MEDS: INSULIN ASPART (*BKC) 100 UNITS/ML 10 UNITS SUB-Q (12:18)
[2020-10-11 13:02] LABS: Glucose Point of Care 450 mg/dl (65-105)
[2020-10-11 13:03] LABS: Glucose Point of Care 423 mg/dl (65-105)
[2020-10-11 14:00] VITALS: BP 160/94; PULSE 105; RESP 18; TEMP 37; O2SAT 100
[2020-10-11 15:00] VITALS: BP 143/82
--- NOTE | 2020-10-11 15:13 | PM.DS ---
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 Status: Acute Assessment and Plan: (5) ANNEMARIE (acute kidney injury): Code(s): N17.9 - Acute kidney failure, unspecified Status: Acute (6) Dyspnea on exertion: Code(s): R06.00 - Dyspnea, unspecified Status: Acute (7) CHF exacerbation: Code(s): I50.9 - Heart failure, unspecified Status: Acute (8) COPD (chronic obstructive pulmonary disease): Code(s): J44.9 - Chronic obstructive pulmonary disease, unspecified Status: Acute DS: Summary Hospital Course Hospital Course: Patient is 60-year-old female with history CABG in February of 2020, aortic valve replacement now taking warfarin, history of diabetes states on insulin presented to the emergency depart with complaint of shortness of breath for last 4 days, lower extremities swelling, and a chest pain, patient denies any persistent cough, fever chills, patient has received both of her vaccine for COVID 19. She was suspected to have congestive heart failure exacerbation. She was started on IV diuretics and she improved significantly. Echocardiogram was done which showed normal EF with no other significant findings normal prosthetic valve except for grade 2 diastolic dysfunction. Her INR was slightly subtherapeutic for her prosthetic valve and hence she was initially treated with Lovenox which was subsequently discontinued after getting INR at therapeutic range. She was continued in her usual home doses Coumadin level and remained therapeutic throughout the hospital stay. On 10/10 she had increased shortness of breath for which CT scan of the chest was obtained which showed was I attenuation suspected most likely related to air trapping /small airway disease along with mild emphysema and hyperinflation. For suspected COPD related worsening of her shortness of breath she was placed on prednisone and Symbicort. Her diabetes became uncontrolled with use of prednisone so decision was made to stop prednisone and continue only on Symbicort at discharge. She had been given an oral as an outpatient basis however she did not continue that as it was not covered under her formulary. If Symbicort is not under formulary she would contact her primary care doctor to further check or authorize similar medication as an outpatient basis. Brook improved with addition of Symbicort and prednisone and getting discharged home. She is advised to follow-up with primary care doctor in 1 week Status at Discharge Functional status at discharge: independent ambulation Overall status at discharge: patient is progressing back to baseline Time Spent with Patient Time attestation: Total time spent providing and/or coordinating discharge services: 45 minutes Exam Narrative: General: Well developed well nourished patient in NAD HEENT: normocephalic, atraumatic Neck: supple, nontender Neuro: Alert and oriented, no gross motor deficits CV: Regular rate and rhythm with probable ectopic beat noted. Resp: coarse breath sounds bilaterally, no respiratory distress, no wheezing are abnormal breath sounds noted Abd: Soft, non distended. No pain to palpation. Positive bowel sounds Extremities: No swelling, erythema, or pain to palpation. DS: Data Data Completed and Pending Labs on day of discharge: Labs from last 24 hours 10/11/20 10/11/20 10/11/20 12:00 11:57 08:12 WBC RBC Hgb Hct MCV MCH MCHC RDW Plt Count MPV
[2020-10-11 16:04] LABS: Glucose Point of Care 436 mg/dl (65-105)
[2020-10-11] MEDS: INSULIN ASPART (*BKC) 100 UNITS/ML 15 UNITS SUB-Q (16:32)
== END 2020-10-11 17:15 | disposition home or self-care (01) | DRG 194 ==
LOC: ANHED 12:06 → ANH3MEDSUR 15:21
PROVIDERS: Family Medicine; Admitting Provider Internal Medicine; Emergency Provider Emergency Medicine; PCP Physician Assistant; Visit Provider Physician Assistant
DX: I11.0 Hypertensive heart disease with heart failure (principal); I50.31 Acute diastolic (congestive) heart failure; J44.9 Chronic obstructive pulmonary disease, unspecified; N17.9 Acute kidney failure, unspecified; E11.9 Type 2 diabetes mellitus without complications; Z79.01 Long term (current) use of anticoagulants; Z95.2 Presence of prosthetic heart valve; Z95.1 Presence of aortocoronary bypass graft
CPT/HCPCS: 36415; 71046; 71250; 80048; 80076; 82948; 83036; 83735; 83880; 84443; 84484; 85025; 85027; 85610; 85730; 93005; 93306; 94640; 96374; 96375; 96376; 99285; A9270; G0378; G0379; J1650; J1815; J1940; J7512

== ENCOUNTER 2021-02-20 09:54 | Inpatient (IN) | payer OTHER, SELFPAY ==
--- NOTE | ~2021-02-20 | XR_ITS ---
EXAMINATION: XR chest 1V portable DATE: 02/20/2021 11:06 INDICATION: COVID positive presenting with shortness of breath TECHNIQUE: frontal view of the chest was obtained. COMPARISON: Chest radiograph dated 10/07/[address] dated 10/10/2020 FINDINGS: Nodular opacity at the lateral left lower lung zone which is without intrapulmonary correlate on the relatively recent prior CT but in appropriate position for a nipple shadow. Unchanged small focus of linear atelectasis/scarring at the lateral left midlung zone. No other airspace opacities, pulmonary edema, pleural effusion or pneumothorax. The cardiomediastinal silhouette is within normal limits for AP technique. Median sternotomy wires and mediastinal surgical clips are seen, likely from prior cor onary artery bypass grafting. There is also a left atrial appendage clip. Cholecystectomy clips in ri ght upper quadrant. IMPRESSION: 1. No acute cardiopulmonary disease. Reviewed, dictated and finalized at location B. DIRECTOR
--- NOTE | ~2021-02-20 | CT_ITS ---
EXAMINATION: CTA chest PE protocol DATE: 02/20/2021 11:53 INDICATION: Shortness of breath, COVID, hemoptysis TECHNIQUE: Computed tomography angiography (CTA) of the chest was performed with 100 mL Omnipaque-350 intravenous contrast timed to evaluate the pulmonary arteries. Coronal maximum intensity projection 3D-reconstructions were created by the technologist. The dose-length product (DLP) was 411.31 mGy-cm. Automated exposure control and iterative reconstruction technique were employed. COMPARISON: 10/10/2020 FINDINGS: The pulmonary arteries are well-opacified. No pulmonary embolism is identified. There are p atchy groundglass opacities throughout the lungs. No pleural effusion or pneumothorax is identified. The heart size is normal. There is mediastinal and bilateral hilar lymphadenopathy. Mild left supracl avicular lymphadenopathy is unchanged. There are changes of mitral valve repair. The gallbladder is s urgically absent. There is atrophy of the left kidney. There is moderate thoracic spondylosis. IMPRESSION: 1. Patchy groundglass airspace opacities throughout the lungs, consistent with COVID 19 pneumonia. 2. No pulmonary embolus identified. 3. Mediastinal and bilateral hilar lymphadenopathy, likely reactive. 4. Left supraclavicular lymphadenopathy of unclear significance, possibly reactive. Recommend follow- up after recovery from COVID pneumonia. Reviewed, dictated and finalized at location A. S ENABLEMENT MANAGER IMPRESSION: 1. Patchy groundglass airspace opacities throughout the lungs, consistent with COVID 19 pneumonia. 2. No pulmonary embolus identified. 3. Mediastinal and bilateral hilar lymphadenopathy, likely reactive. 4. Left supraclavicular lymphadenopathy of unclear significance, possibly react hugh. Recommend follow-up after recovery from COVID pneumonia.
[2021-02-20 09:57] VITALS: BP 125/74; PULSE 77; RESP 21; TEMP 37.4; O2SAT 100
--- NOTE | 2021-02-20 10:19 | ECG_ITS ---
Measurements Intervals Martinez Rate: 76 P: 61 DC: 273 QRS: 36 QRSD: 80 T: 61 QT: 398 QTc: 450 Interpretive Statements SINUS RHYTHM WITH FIRST DEGREE AV BLOCK BASELINE ARTIFACT- I, II, III, AVR, AVL, AVF, V1-V2, V5 ABNORMAL ECG Electronically Signed On 02-20-2021 10:25:57 HIDE SPLITTER by Masoud Jose D.O.
--- NOTE | 2021-02-20 10:20 | PC.NURSE ---
Pt is a difficult stick. Informed both charge nurse and EDP of this. Contacted RN that is properly trained in ultra sound IV placement
[2021-02-20 11:10] LABS: Basophils Percent Auto 0.2 % (0.2-1.2); Eosinophils Percent Auto 0.2 % (0-4.4); Hematocrit 23.6 % (37.0-47.0); Immature Granulocyte Absolute 0.04 K/mm3 (0.00-0.031); Immature Granulocyte Percent A 0.6 % (0-0.5); Lymphocytes Absolute Auto 0.31 K/mm3 (0.9-3.2); Lymphocytes Percent Auto 4.7 % (18.3-44.2); Mean Corpuscular HGB Conc 29.2 g/dl (32-36); Mean Corpuscular Hemoglobin 23.6 pg (26-34); Mean Corpuscular Volume 80.8 fl (80-100); Mean Platelet Volume 9.9 fl (7.4-10.4); Monocytes Absolute Auto 0.4 K/mm3 (0.1-0.6); Monocytes Percent Auto 6.2 % (2.6-8.5); Neutrophils Absolute Auto 5.8 K/mm3 (1.3-6.7); Neutrophils Percent Auto 88.1 % (45.5-73.1); Nucleated Red Blood Cells Perc 0.3 % (0.0-0.2); Platelet Count Result 170 k/mm3 (150-375); Red Blood Count 2.92 M/mm3 (4.2-5.4); Red Cell Distribution Width 17.9 % (11.5-14.5); White Blood Count 6.6 K/mm3 (4.5-10.0)
--- NOTE | 2021-02-20 11:10 | ED.GENADULT ---
HPI - General Adult General Chief complaint: Shortness of Breath/Dyspnea Stated complaint: covid + Time Seen by Provider: 02/20/21 10:52 History of Present Illness HPI narrative: 60-year-old female presented to the emergency department for evaluation of worsening Covid symptoms including nausea vomiting increased fatigue. Patient is normally on 2 L of oxygen at home due to her COPD. Patient states that her [id number] tested positive on Thursday so patient was tested even though she is asymptomatic at that point. Her testing did come back positive for Covid. Patient states she began having increased symptoms of nausea vomiting and fatigue overnight. Patient states while she was walking to her bathroom to vomit she did take off her oxygen and noted that her oxygen decreased down to 83% on room air. Patient states this level of desaturation at exertion with fatigue on room air is normal for her. Patient was concerned because she did say she had multiple episodes of hemoptysis. Patient states the hemoptysis was not significant but patient is on Coumadin. Patient is not vaccinated at this time. Patient reports she did have a recent hospitalization for which she was transferred to [facility] in [place] and received blood transfusions. Our electronic medical record does show admissions related to her kidney disease. Patient is not currently vaccinated to [employer] because she was told to hold off due to her underlying comorbidities. Related Data Home Medications Medication Instructions Recorded Confirmed furosemide 40 mg PO DAILY 07/11/20 10/07/20 metoprolol tartrate 50 mg PO BID 07/11/20 10/07/20 potassium chloride 10 meq PO HS 07/11/20 10/07/20 Alive Women's Gummy Vitamin 1 tablet PO DAILY 10/07/20 10/07/20 Lantus Solostar U-100 Insulin 36 unit SUBCUT DAILY 10/07/20 10/07/20 amlodipine 10 mg PO HS 10/07/20 10/07/20 aspirin 81 mg PO DAILY 02/20/21 02/20/21 atorvastatin 40 mg PO DAILY 02/20/21 02/20/21 buspirone 10 mg PO TID 02/20/21 02/20/21 hydrocodone-acetaminophen 1 tablet PO HS PRN 02/20/21 02/20/21 insulin aspart U-100 [Novolog 10 unit SUBCUT ACINSULIN 02/20/21 02/20/21 Flexpen U-100 Insulin] melatonin 3 mg PO HS 02/20/21 02/20/21 pantoprazole [Protonix] 40 mg PO BIDAC 02/20/21 02/20/21 sertraline 50 mg PO DAILY 02/20/21 02/20/21 warfarin 4 mg PO DAILY 02/20/21 02/20/21 Allergies Allergy/AdvReac Type Severity Reaction Status Date / Time simvastatin [From Zocor] AdvReac Hypotension Verified 02/20/21 15:22 Review of Systems Review of Systems: CONSTITUTIONAL: Denies fever, chills, or sweats. EYES: Denies visual changes, redness, or discharge. ENT: Denies rhinorrhea, congestion, sore throat, or otalgia. CARDIOVASCULAR: Denies chest pain, palpitations, or edema. RESPIRATORY: Reports cough, congestion, hemoptysis and increasing shortness of breath GASTROINTESTINAL: Denies abdominal pain, nausea, vomiting, or diarrhea. Denies any rectal bleeding GENITOURINARY: Denies dysuria or hematuria. SKIN: Denies rash or itching. MUSCULOSKELETAL: Denies back pain, joint pain, or myalgia. NEUROLOGIC: Denies headache, numbness, or weakness. PSYCHIATRIC: Denies anxiety or depression. [facility] Past Medical History Medical History Anemia Diabetes Heart attack History of atrial fibrillation Hyperlipidemia Stroke Surgical History Surgical History H/O tubal ligation H/O: hysterectomy History of heart valve replacement Hx of cholecystectomy Family History Family History Father Hypertension Depression Heart problem Cerebrovascular accident Mother Hypertension Heart problem Depression Cerebrovascular accident Social History Social History Social History: The patient lives with her son and [id number]. The daugh
[2021-02-20 11:34] LABS: Alanine Aminotransferase 19 U/L (4-35); Albumin Level 3.5 g/dL (3.5-5.1); Alkaline Phosphatase 64 U/L (38-126); Anion Gap 11 mmol/L (8-16); Aspartate Amino Transferase 23 U/L (14-36); Bilirubin,Total 0.6 mg/dL (0.2-1.3); Blood Urea Nitrogen 27 mg/dL (7-17); Calcium 8.9 mg/dL (8.4-10.2); Carbon Dioxide 25 mmol/L (22-30); Chloride 105 mmol/L (98-107); Estimated CRCL calculation 31 ml/min; Estimated Glomerular Filt Rate 31; Glucose 109 mg/dL (65-110); Potassium 3.7 mmol/L (3.4-5.0); Sodium 141 mmol/L (137-145)
[2021-02-20 11:36] LABS: Hemoglobin 6.9 g/dL (12.0-15.0)
[2021-02-20 11:37] LABS: Anisocytosis 1+ (NORMAL); Hypochromasia 1+ (NORMAL); Microcytosis 1+ (NORMAL); Platelet Estimate Adequate (Adequate)
[2021-02-20 12:39] LABS: INR 1.5
[2021-02-20 13:00] VITALS: BP 126/74; PULSE 76; RESP 20; O2SAT 94
[2021-02-20 14:30] LABS: NT Pro B Type Natriuretic Pept 6390 pg/mL (5-100)
--- NOTE | 2021-02-20 15:16 | ADMGEN ---
This patient, Danielle Jasmine, was admitted to [facility] Surg Room 307-01. Patient/family oriented to hospital policies and general routines including ID bracelet, bed and alarms, visiting hours, pain management, procedures, bathroom and other care routines, personal items, smoking policy, room service/diet, and visiting hours. Information on how to activate the Rapid Response Team has been discussed. Patient/Family are encouraged to report perceived risks to care and to ask questions if they do not understand what they are told or what they should do.
--- NOTE | 2021-02-20 15:54 | PM.IMHP ---
H&P: HPI History of Present Illness Date/Time: 02/20/21 15:54 this is a 60-year-old female patient who came to the emergency room due to a worsened COVID symptoms. The patient is chronically on oxygen at 2 L per nasal cannula at home due to her COPD. The patient stated that she is on Coumadin because of a past history of having atrial fibrillation. 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 The patient stated that she was tested positive for COVID this past Thursday which would be 5 days ago. Patient's [id number] whom she lives with tested positive for COVID on that day and the patient was tested on that day as well even though the patient was asymptomatic. The patient has been having symptoms of nausea and vomiting and fatigue. Patient stated that she has had several episodes of hemoptysis. Although when I questioned her if it was blood clots or if it was strict blood. She stated was mostly strict blood. The patient is on vaccinated for COVID-19. Patient's H&H is 6.9 and 23.6. The patient stated she does not have any GI blood loss. She stated just recently she had upper lower GI scopes and could not find any bleed. Her INR is 1.5 today. Creatinine is 1.7 and BUN 27 and the patient is at her baseline. The anemia could possibly be related to her chronic renal failure. Her blood sugar is 109 today. BNP 6390. Chest x-ray was read as no acute cardiopulmonary disease. Chest CTA was read as the following 1. Patchy groundglass airspace opacities throughout the lungs, consistent with COVID 19 pneumonia. 2. No pulmonary embolus identified. 3. Mediastinal and bilateral hilar lymphadenopathy, likely reactive. 4. Left supraclavicular lymphadenopathy of unclear significance, possibly reactive. Recommend follow-up after recovery from COVID pneumonia. The patient was started on Decadron in the emergency room. The patient is being admitted to observation status on the date of service of 02/20/2021 Chief Complaint: covid symptoms Review of Systems Review of Systems: All systems reviewed & are unremarkable except as noted in HPI and below Constitutional: Constitutional: Reports as per HPI and Reports no additional constitutional complaints Eyes: Eyes: Reports as per HPI and Reports no additional eye complaints ENT: Reports system reviewed and no additional complaints, except as documented and Reports Normal hearing present Cardiovascular: Cardiovascular: Reports no additional cardiovascular complaints Respiratory: Respiratory: Reports no additional respiratory complaints and Reports no additional respiratory complaints Gastrointestinal: Gastrointestinal: Reports as per HPI and Reports no additional gastrointestinal complaints Musculoskeletal: Musculoskeletal: Reports no additional musculoskeletal complaints Integumentary/Breasts: Skin/Breast: Reports system reviewed and no additional complaints, except as docu and Reports as per HPI Neurologic: Reports system reviewed and no additional complaints, except as documented, Reports as per HPI and Reports Normal hearing present Psychiatric: Psychiatric: Reports no additional psychiatric complaints and Reports as per HPI Endocrine: Endocrine: Reports no additional endocrine complaints Hematologic/Lymphatic: Hematologic/Lymphatic: Reports no additional hematologic/lymphatic complaints Allergic/Immunologic: Allergic/Immunologic: Reports no additional allergic/immunologic complaints FOR[facility]LY [facility], [facility] Past Medical History Medical History (Updated 02/20/21 @ 16:16 by Leyda Ragland NP) Anemia Diabetes Heart attack History of atrial fibrillation Hyperlipidemia Stroke Surgical History Surgical History H/O tubal ligation H/O: hysterectomy History of heart valve replacement Hx of cholecystectomy Family History Family History Father Hypertension
[2021-02-20 16:00] VITALS: BP 130/80; PULSE 88; PULSE 90; RESP 20; TEMP 36.8; O2SAT 99
[2021-02-20 16:54] LABS: Alanine Aminotransferase 20 U/L (4-35); Estimated CRCL calculation 33 ml/min; Estimated Glomerular Filt Rate 33
[2021-02-20] MEDS: PANTOPRAZOLE 40 MG TABLET PO (17:57)
[2021-02-20] MEDS: busPIRone HCL 10 MG TABLET PO (17:57)
[2021-02-20] MEDS: ENOXAPARIN 100 MG/ML SYRINGE 90 MG SUB-Q (17:58)
[2021-02-20] MEDS: INSULIN ASPART (*BKC) 100 UNITS/ML SUB-Q (17:58)
[2021-02-20] MEDS: INSULIN ASPART (*BKC) 100 UNITS/ML 10 UNITS SUB-Q (17:58)
[2021-02-20] MEDS: WARFARIN (*PBKC) 4 MG TABLET PO (18:00)
[2021-02-20] MEDS: REMDESIVIR 200 MG/NS 250 ML 200 MG/250 ML BAG 250 MG IVPB (18:00)
[2021-02-20] MEDS: HYDROcodone/acetaminophen (*CRX) 5-325 MG TABLET 1 TAB PO (18:11)
[2021-02-20 18:14] LABS: Glucose Point of Care 239 mg/dl (65-105)
[2021-02-20 19:14] LABS: INR 1.4; Prothrombin Time 16.6 Seconds (11.1-14.7)
[2021-02-20 20:00] VITALS: BP 122/73; PULSE 78; PULSE 81; PULSE 90; RESP 18; RESP 20; TEMP 36.3; O2SAT 100; O2SAT 96
[2021-02-20 20:53] VITALS: PULSE 90
[2021-02-20] MEDS: MELATONIN 3 MG TABLET PO ×2 (20:53→23:31)
[2021-02-20] MEDS: METOPROLOL TARTRATE 50 MG TAB PO (20:53)
[2021-02-20] MEDS: POTASSIUM CHLORIDE 10 MEQ TABLET.ER PO (20:54)
[2021-02-20] MEDS: amLODIPine BESYLATE 5 MG TABLET 10 MG PO (20:54)
[2021-02-20] MEDS: FLUTICASONE/SALMETEROL 115-21 MCG (*SP) INHALER 2 PUFF INHALATION (20:54)
[2021-02-20] MEDS: SODIUM CHLORIDE 0.9% IV 250 ML 30 ML IV CONT (23:31)
[2021-02-20] MEDS: TUBING, BLOOD PLUM PUMP TUBING 1 EACH XX (23:31)
[2021-02-21] VITALS (16 sets, daily range): BP systolic 105–153; BP diastolic 54–97; PULSE 58–99; RESP 17–20; TEMP 36–37.1; O2SAT 94–100
[2021-02-21] MEDS: PANTOPRAZOLE 40 MG TABLET PO ×2 (06:34→17:30)
[2021-02-21] MEDS: ENOXAPARIN 100 MG/ML SYRINGE 90 MG SUB-Q (06:53)
[2021-02-21 07:09] LABS: Basophils Percent Auto 0.3 % (0.2-1.2); Hematocrit 28.1 % (37.0-47.0); Hemoglobin 8.3 g/dL (12.0-15.0); Immature Granulocyte Absolute 0.03 K/mm3 (0.00-0.031); Immature Granulocyte Percent A 0.9 % (0-0.5); Lymphocytes Absolute Auto 0.24 K/mm3 (0.9-3.2); Lymphocytes Percent Auto 7.4 % (18.3-44.2); Mean Corpuscular HGB Conc 29.5 g/dl (32-36); Mean Corpuscular Hemoglobin 24.7 pg (26-34); Mean Corpuscular Volume 83.6 fl (80-100); Mean Platelet Volume 9.9 fl (7.4-10.4); Monocytes Absolute Auto 0.2 K/mm3 (0.1-0.6); Monocytes Percent Auto 5.9 % (2.6-8.5); Neutrophils Absolute Auto 2.8 K/mm3 (1.3-6.7); Neutrophils Percent Auto 85.5 % (45.5-73.1); Nucleated Red Blood Cells Perc 0.9 % (0.0-0.2); Platelet Count Result 150 k/mm3 (150-375); Red Blood Count 3.36 M/mm3 (4.2-5.4); Red Cell Distribution Width 16.8 % (11.5-14.5); White Blood Count 3.2 K/mm3 (4.5-10.0)
[2021-02-21 07:31] LABS: Alanine Aminotransferase 18 U/L (4-35); Albumin Level 3.5 g/dL (3.5-5.1); Alkaline Phosphatase 72 U/L (38-126); Anion Gap 11 mmol/L (8-16); Aspartate Amino Transferase 24 U/L (14-36); Bilirubin,Total 0.5 mg/dL (0.2-1.3); Blood Urea Nitrogen 30 mg/dL (7-17); Calcium 8.7 mg/dL (8.4-10.2); Carbon Dioxide 23 mmol/L (22-30); Chloride 106 mmol/L (98-107); Estimated CRCL calculation 31 ml/min; Estimated Glomerular Filt Rate 31; Glucose 181 mg/dL (65-110); Lipase 120 U/L (23-300); Magnesium 2.2 mg/dL (1.6-2.3); Phosphorus 4.6 mg/dL (2.5-4.5); Potassium 4.2 mmol/L (3.4-5.0); Sodium 140 mmol/L (137-145)
[2021-02-21 07:44] LABS: INR 1.6; Prothrombin Time 18.5 Seconds (11.1-14.7)
[2021-02-21 08:01] LABS: Thyroid Stimulating Hormone Reflex 0.387 uIU/mL (0.465-4.68)
[2021-02-21 08:27] LABS: Glucose Point of Care 149 mg/dl (65-105)
[2021-02-21 08:39] LABS: Free T4 Free Thyroxine Reflex 1.25 ng/dL (0.78-2.19)
[2021-02-21] MEDS: SERTRALINE HCL 50 MG TABLET PO (08:47)
[2021-02-21] MEDS: METOPROLOL TARTRATE 50 MG TAB PO ×2 (08:47→21:52)
[2021-02-21] MEDS: ATORVASTATIN 40 MG TABLET PO (08:47)
[2021-02-21] MEDS: THERAPEUTIC MULTIVITAMINS/MINERALS TAB (*BKC) 1 TABLET PO (08:47)
[2021-02-21] MEDS: INSULIN ASPART (*BKC) 100 UNITS/ML 10 UNITS SUB-Q ×3 (08:47→17:29)
[2021-02-21] MEDS: ASPIRIN 81 MG CHEWABLE TABLET PO (08:47)
[2021-02-21] MEDS: busPIRone HCL 10 MG TABLET PO ×3 (08:47→17:30)
[2021-02-21 09:50] LABS: Total Triiodothyronine (T3) 0.67 NG/ML (0.97-1.69)
[2021-02-21] MEDS: FLUTICASONE/SALMETEROL 115-21 MCG (*SP) INHALER 2 PUFF INHALATION ×2 (10:38→21:22)
--- NOTE | 2021-02-21 10:45 | P.PNIM_ITS ---
Progress Note: A&P Assessment and Plan (1) Pneumonia due to COVID-19 virus: Code(s): U07.1 - COVID-19; J12.82 - Pneumonia due to coronavirus disease 2018 Status: Acute Assessment and Plan: * Chest xray no acute cardiopulmonary disease * Chest CTA COVID, No PE * Test positive on Thursday02/18/21 * Supplemental oxygen wean to maintain saturations greater than 92% * Remdesivir and Decadron * inhalers * Robitussin * Actamera 02/21/21 * PT/OT * Isolation (2) Acute and chronic respiratory failure: Code(s): J96.20 - Acute and chronic respiratory failure, unspecified whether with hypoxia or hypercapnia Status: Acute Assessment and Plan: * Chronic respiratory failure * 2LNC at home (3) COPD (chronic obstructive pulmonary disease): Code(s): J44.9 - Chronic obstructive pulmonary disease, unspecified Status: Acute Assessment and Plan: * Continue inhalers and Decadron * chronically on oxygen at 2 L per nasal cannula * See above (4) Acute on chronic renal failure: Code(s): N17.9 - Acute kidney failure, unspecified; N18.9 - Chronic kidney disease, uns pecified Status: Acute Assessment and Plan: * Baseline creatinine 1.7 * Currently 1.7 on labs * trend labs * Avoid nephrotoxic medications * Could be contributing to her anemia (5) Anemia: Qualifiers: Anemia type: due to chronic kidney disease Chronic kidney disease stage: unspecified stage Qualified Code(s): N18.9 - Chronic kidney disease, unspecified; D63.1 - Anemia in chronic kidney disease Code(s): D64.9 - Anemia, unspecified Status: Chronic Assessment and Plan: * H/H fell to 6.9/23.6 * unit of packed red blood cells * probably related to her chronic renal failure * Recently had upper and lower GI With no acute findings * anemia labs ordered * Transfuse if lower than 7 * Supplement (6) CHF exacerbation: Code(s): I50.9 - Heart failure, unspecified Status: Acute Assessment and Plan: * BNP 6390 * Echo ordered and pending * Continue with Lasix, and metoprolol * Trend symptoms (7) Diabetes: Code(s): E11.9 - Type 2 diabetes mellitus without complications Status: Chronic Assessment and Plan: * Current glucose 181 * Accu-Cheks AC and HS. Continue with Lantus and do sliding scale insulin. 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 Time Spent With Patient Time with patient: Greater than 35 minutes Subjective Date/time seen: 02/21/21 10:45 Interval history: Date/Time: 02/20/21 15:54 This is a 60-year-old female patient who came to the emergency room due to a worsened COVID symptoms. The patient is chronically on oxygen at 2 L per nasal cannula at home due to her COPD. The patient stated that she is on Coumadin because of a past history of having atrial fibrillation. The patient has a history of having a valv
--- NOTE | 2021-02-21 10:45 | PM.IMPN ---
Progress Note: A&P Assessment and Plan (1) Pneumonia due to COVID-19 virus: Code(s): U07.1 - COVID-19; J12.82 - Pneumonia due to coronavirus disease 2019 Status: Acute Assessment and Plan: Chest xray no acute cardiopulmonary disease Chest CTA COVID, No PE Test positive on Thursday02/18/21 Supplemental oxygen wean to maintain saturations greater than 92% Remdesivir and Decadron inhalers Robitussin Actamera 02/21/21 PT/OT Isolation (2) Acute and chronic respiratory failure: Code(s): J96.20 - Acute and chronic respiratory failure, unspecified whether with hypoxia or hypercapnia Status: Acute Assessment and Plan: Chronic respiratory failure 2LNC at home (3) COPD (chronic obstructive pulmonary disease): Code(s): J44.9 - Chronic obstructive pulmonary disease, unspecified Status: Acute Assessment and Plan: Continue inhalers and Decadron chronically on oxygen at 2 L per nasal cannula See above (4) Acute on chronic renal failure: Code(s): N17.9 - Acute kidney failure, unspecified; N18.9 - Chronic kidney disease, unspecified Status: Acute Assessment and Plan: Baseline creatinine 1.7 Currently 1.7 on labs trend labs Avoid nephrotoxic medications Could be contributing to her anemia (5) Anemia: Qualifiers: Anemia type: due to chronic kidney disease Chronic kidney disease stage: unspecified stage Qualified Code(s): N18.9 - Chronic kidney disease, unspecified; D63.1 - Anemia in chronic kidney disease Code(s): D64.9 - Anemia, unspecified Status: Chronic Assessment and Plan: H/H fell to 6.9/23.6 unit of packed red blood cells probably related to her chronic renal failure Recently had upper and lower GI With no acute findings anemia labs ordered Transfuse if lower than 7 Supplement (6) CHF exacerbation: Code(s): I50.9 - Heart failure, unspecified Status: Acute Assessment and Plan: BNP 6390 Echo ordered and pending Continue with Lasix, and metoprolol Trend symptoms (7) Diabetes: Code(s): E11.9 - Type 2 diabetes mellitus without complications Status: Chronic Assessment and Plan: Current glucose 181 Accu-Cheks AC and HS. Continue with Lantus and do sliding scale insulin. 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 Time Spent With Patient Time with patient: Greater than 35 minutes Subjective Date/time seen: 02/21/21 10:45 Interval history: Date/Time: 02/20/21 15:54 This is a 60-year-old female patient who came to the emergency room due to a worsened COVID symptoms. The patient is chronically on oxygen at 2 L per nasal cannula at home due to her COPD. The patient stated that she is on Coumadin because of a past history of having atrial fibrillation. 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 The patient stated that she was tested positive for COVID this past Thursday which would be 5 days ago. Patient's [id number] whom she lives with tested positive for COVID on that day and the patient was tested on that day as well even though the patient was asymptomatic. The patient has been having symptoms of nausea and vomiting and fatigue. Patient stated that she has had several episodes of hemoptysis. Although when I questioned her if it was blood clots or if it was strict blood. She stated was mostly strict blood. The patient is on vacc
[2021-02-21 11:44] LABS: Glucose Point of Care 243 mg/dl (65-105)
[2021-02-21 12:31] LABS: Hematocrit 28.4 % (37.0-47.0); Hemoglobin 8.5 g/dL (12.0-15.0)
[2021-02-21] MEDS: FUROSEMIDE 40 MG TABLET PO (12:47)
[2021-02-21] MEDS: INSULIN ASPART (*BKC) 100 UNITS/ML SUB-Q ×2 (12:47→17:29)
[2021-02-21 16:40] LABS: Glucose Point of Care 320 mg/dl (65-105)
[2021-02-21] MEDS: WARFARIN (*PBKC) 3 MG TABLET 6 MG PO (17:31)
[2021-02-21 19:13] LABS: Hematocrit 26.5 % (37.0-47.0); Hemoglobin 7.9 g/dL (12.0-15.0)
[2021-02-21] MEDS: POTASSIUM CHLORIDE 10 MEQ TABLET.ER PO (21:52)
[2021-02-21] MEDS: amLODIPine BESYLATE 5 MG TABLET 10 MG PO (21:52)
[2021-02-21] MEDS: REMDESIVIR 100 MG/NS 250 ML 100 MG/250 ML BAG 250 MG IVPB (21:56)
[2021-02-21 22:19] LABS: Glucose Point of Care 174 mg/dl (65-105)
[2021-02-22] VITALS (11 sets, daily range): BP systolic 112–148; BP diastolic 64–85; PULSE 70–84; RESP 18–20; TEMP 36.2–37.1; O2SAT 94–100
[2021-02-22] MEDS: PANTOPRAZOLE 40 MG TABLET PO ×2 (05:33→17:20)
[2021-02-22 07:27] LABS: Basophils Percent Auto 0.2 % (0.2-1.2); Hematocrit 29.6 % (37.0-47.0); Hemoglobin 8.7 g/dL (12.0-15.0); Immature Granulocyte Absolute 0.03 K/mm3 (0.00-0.031); Immature Granulocyte Percent A 0.7 % (0-0.5); Lymphocytes Absolute Auto 0.65 K/mm3 (0.9-3.2); Lymphocytes Percent Auto 15.4 % (18.3-44.2); Mean Corpuscular HGB Conc 29.4 g/dl (32-36); Mean Corpuscular Volume 81.8 fl (80-100); Monocytes Absolute Auto 0.3 K/mm3 (0.1-0.6); Monocytes Percent Auto 7.1 % (2.6-8.5); Neutrophils Absolute Auto 3.2 K/mm3 (1.3-6.7); Neutrophils Percent Auto 76.6 % (45.5-73.1); Platelet Count Result 146 k/mm3 (150-375); Red Blood Count 3.62 M/mm3 (4.2-5.4); Red Cell Distribution Width 16.9 % (11.5-14.5); White Blood Count 4.2 K/mm3 (4.5-10.0)
[2021-02-22 07:39] LABS: Alanine Aminotransferase 18 U/L (4-35); Albumin Level 3.6 g/dL (3.5-5.1); Alkaline Phosphatase 59 U/L (38-126); Anion Gap 9 mmol/L (8-16); Aspartate Amino Transferase 29 U/L (14-36); Bilirubin,Total 0.5 mg/dL (0.2-1.3); Blood Urea Nitrogen 35 mg/dL (7-17); Calcium 8.9 mg/dL (8.4-10.2); Carbon Dioxide 22 mmol/L (22-30); Chloride 105 mmol/L (98-107); Estimated CRCL calculation 35 ml/min; Estimated Glomerular Filt Rate 35; Glucose 116 mg/dL (65-110); Magnesium 2.1 mg/dL (1.6-2.3); Potassium 3.9 mmol/L (3.4-5.0); Sodium 136 mmol/L (137-145)
[2021-02-22 07:51] LABS: INR 1.8; Prothrombin Time 20.2 Seconds (11.1-14.7)
[2021-02-22 07:55] LABS: Glucose Point of Care 109 mg/dl (65-105)
[2021-02-22 08:22] LABS: Platelet Estimate Adequate (Adequate)
[2021-02-22 08:23] LABS: Anisocytosis 1+ (NORMAL); Hypochromasia 1+ (NORMAL); Ovalocytes 1+ (NORMAL); Tear Drop Cells 1+ (NORMAL)
[2021-02-22] MEDS: FLUTICASONE/SALMETEROL 115-21 MCG (*SP) INHALER 2 PUFF INHALATION (08:42)
[2021-02-22] MEDS: SERTRALINE HCL 50 MG TABLET PO (09:01)
[2021-02-22] MEDS: FUROSEMIDE 40 MG TABLET PO (09:01)
[2021-02-22] MEDS: ATORVASTATIN 40 MG TABLET PO (09:01)
[2021-02-22] MEDS: ASPIRIN 81 MG CHEWABLE TABLET PO (09:02)
[2021-02-22] MEDS: busPIRone HCL 10 MG TABLET PO ×3 (09:03→17:20)
[2021-02-22] MEDS: METOPROLOL TARTRATE 50 MG TAB PO ×2 (09:03→22:29)
[2021-02-22] MEDS: THERAPEUTIC MULTIVITAMINS/MINERALS TAB (*BKC) 1 TABLET PO (09:03)
[2021-02-22 11:32] LABS: Glucose Point of Care 204 mg/dl (65-105)
[2021-02-22] MEDS: INSULIN ASPART (*BKC) 100 UNITS/ML SUB-Q ×2 (12:24→17:18)
[2021-02-22] MEDS: INSULIN ASPART (*BKC) 100 UNITS/ML 10 UNITS SUB-Q ×2 (12:24→17:19)
[2021-02-22 16:42] LABS: Glucose Point of Care 361 mg/dl (65-105)
[2021-02-22] MEDS: WARFARIN (*PBKC) 3 MG TABLET 6 MG PO (17:20)
--- NOTE | 2021-02-22 17:25 | P.PNIM_ITS ---
Progress Note: A&P Assessment and Plan (1) Pneumonia due to COVID-19 virus: Code(s): U07.1 - COVID-19; J12.82 - Pneumonia due to coronavirus disease 2018 Status: Acute Assessment and Plan: * Chest xray no acute cardiopulmonary disease * Chest CTA COVID, No PE * Test positive on Thursday02/18/21 * Supplemental oxygen wean to maintain saturations greater than 92% * Remdesivir and Decadron * inhalers * Robitussin * Actamera 02/21/21 * PT/OT * Isolation 02/22/2021 Interval history: patient lying in the bed is feeling much better patient was diagnosed with COVID-19 7 days ago currently being treated with dexamethasone 10 mg q.day 05/23 and remdesivir she got the loading dose on 02/21, and today 2nd dose 03/19, Actamera, patient only requiring 2 L of oxygen this is her baseline, patient states feeling better compared to when she arrived, will continue to monitor will have a PT OT evaluate (2) Acute and chronic respiratory failure: Code(s): J96.20 - Acute and chronic respiratory failure, unspecified whether with hypoxia or hypercapnia Status: Acute Assessment and Plan: * Chronic respiratory failure * 2LNC at home (3) COPD (chronic obstructive pulmonary disease): Code(s): J44.9 - Chronic obstructive pulmonary disease, unspecified Status: Acute Assessment and Plan: * Continue inhalers and Decadron * chronically on oxygen at 2 L per nasal cannula * See above (4) Acute on chronic renal failure: Code(s): N17.9 - Acute kidney failure, unspecified; N18.9 - Chronic kidney disease, unspecified Status: Acute Assessment and Plan: * Baseline creatinine 1.7 * Currently 1.7 on labs * trend labs * Avoid nephrotoxic medications * Could be contributing to her anemia (5) Anemia: Qualifiers: Anemia type: due to chronic kidney disease Chronic kidney disease stage: unspecified stage Qualified Code(s): N18.9 - Chronic kidney disease, unspecified; D63.1 - Anemia in chronic kidney disease Code(s): D64.9 - Anemia, unspecified Status: Chronic Assessment and Plan: * H/H fell to 6.9/23.6 * unit of packed red blood cells * probably related to her chronic renal failure * Recently had upper and lower GI With no acute findings * anemia labs ordered * Transfuse if lower than 7 * Supplement (6) CHF exacerbation: Code(s): I50.9 - Heart failure, unspecified Status: Acute Assessment and Plan: * BNP 6390 * Echo ordered and pending * Continue with Lasix, and metoprolol * Trend symptoms (7) Diabetes: Code(s): E11.9 - Type 2 diabetes mellitus without complications Status: Chronic Assessment and Plan: * Current glucose 181 * Accu-Cheks AC and HS. Continue with Lantus and do sliding scale insulin. 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 Subjective Date/time seen: 02/22/21 17:25 Interval history: D
--- NOTE | 2021-02-22 17:25 | PM.IMPN ---
Progress Note: A&P Assessment and Plan (1) Pneumonia due to COVID-19 virus: Code(s): U07.1 - COVID-19; J12.82 - Pneumonia due to coronavirus disease 2018 Status: Acute Assessment and Plan: Chest xray no acute cardiopulmonary disease Chest CTA COVID, No PE Test positive on Thursday02/18/21 Supplemental oxygen wean to maintain saturations greater than 92% Remdesivir and Decadron inhalers Robitussin Actamera 02/21/21 PT/OT Isolation 02/22/2021 Interval history: patient lying in the bed is feeling much better patient was diagnosed with COVID-19 7 days ago currently being treated with dexamethasone 10 mg q.day 05/23 and remdesivir she got the loading dose on 02/21, and today 2nd dose 03/19, Actamera, patient only requiring 2 L of oxygen this is her baseline, patient states feeling better compared to when she arrived, will continue to monitor will have a PT OT evaluate (2) Acute and chronic respiratory failure: Code(s): J96.20 - Acute and chronic respiratory failure, unspecified whether with hypoxia or hypercapnia Status: Acute Assessment and Plan: Chronic respiratory failure 2LNC at home (3) COPD (chronic obstructive pulmonary disease): Code(s): J44.9 - Chronic obstructive pulmonary disease, unspecified Status: Acute Assessment and Plan: Continue inhalers and Decadron chronically on oxygen at 2 L per nasal cannula See above (4) Acute on chronic renal failure: Code(s): N17.9 - Acute kidney failure, unspecified; N18.9 - Chronic kidney disease, unspecified Status: Acute Assessment and Plan: Baseline creatinine 1.7 Currently 1.7 on labs trend labs Avoid nephrotoxic medications Could be contributing to her anemia (5) Anemia: Qualifiers: Anemia type: due to chronic kidney disease Chronic kidney disease stage: unspecified stage Qualified Code(s): N18.9 - Chronic kidney disease, unspecified; D63.1 - Anemia in chronic kidney disease Code(s): D64.9 - Anemia, unspecified Status: Chronic Assessment and Plan: H/H fell to 6.9/23.6 unit of packed red blood cells probably related to her chronic renal failure Recently had upper and lower GI With no acute findings anemia labs ordered Transfuse if lower than 7 Supplement (6) CHF exacerbation: Code(s): I50.9 - Heart failure, unspecified Status: Acute Assessment and Plan: BNP 6390 Echo ordered and pending Continue with Lasix, and metoprolol Trend symptoms (7) Diabetes: Code(s): E11.9 - Type 2 diabetes mellitus without complications Status: Chronic Assessment and Plan: Current glucose 181 Accu-Cheks AC and HS. Continue with Lantus and do sliding scale insulin. A1c 6.0 (8) Chronic anticoagulation: Code(s): Z79.01 - FDC (current) use of anticoagulants Status: Acute Assessment and Plan: Coumadin due to a history of AFib which now she is in sinus rhythm pig valve placement INR is low at 1.5 Will need to continue Trend INR (9) Hyperlipidemia: Code(s): E78.5 - Hyperlipidemia, unspecified Status: Chronic Assessment and Plan: Continue home medication. Subjective Date/time seen: 02/22/21 17:25 Interval history: Date/Time: 02/20/21 15:54 This is a 60-year-old female patient who came to the emergency room due to a worsened COVID symptoms. The patient is chronically on oxygen at 2 L per nasal cannula at home due to her COPD. The patient stated that she is on Coumadin because of a past history of having atrial fibrillation. 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 The patient stated that she was tested positive for COVID this past Thursday which would be 5 days ago. Patient's [id number] whom she lives with tested positive for COVID on
[2021-02-22] MEDS: amLODIPine BESYLATE 5 MG TABLET 10 MG PO (22:29)
[2021-02-22] MEDS: POTASSIUM CHLORIDE 10 MEQ TABLET.ER PO (22:29)
[2021-02-22] MEDS: REMDESIVIR 100 MG/NS 250 ML 100 MG/250 ML BAG 250 MG IVPB (22:30)
[2021-02-22] MEDS: MELATONIN 3 MG TABLET PO (22:30)
[2021-02-22 22:45] LABS: Glucose Point of Care 230 mg/dl (65-105)
--- NOTE | 2021-02-22 23:20 | PCRCNOTE ---
therapist in code yellow ed
[2021-02-23] VITALS (9 sets, daily range): BP systolic 130–177; BP diastolic 74–99; PULSE 68–79; RESP 18–20; TEMP 36.4–36.9; O2SAT 94–100
[2021-02-23] MEDS: PANTOPRAZOLE 40 MG TABLET PO ×2 (06:05→17:26)
[2021-02-23 07:06] LABS: INR 2.1; Prothrombin Time 22.8 Seconds (11.1-14.7)
[2021-02-23 07:13] LABS: Alanine Aminotransferase 17 U/L (4-35); Estimated CRCL calculation 38 ml/min; Estimated Glomerular Filt Rate 38
[2021-02-23 08:13] LABS: Glucose Point of Care 115 mg/dl (65-105)
[2021-02-23] MEDS: THERAPEUTIC MULTIVITAMINS/MINERALS TAB (*BKC) 1 TABLET PO (08:27)
[2021-02-23] MEDS: ATORVASTATIN 40 MG TABLET PO (08:27)
[2021-02-23] MEDS: SERTRALINE HCL 50 MG TABLET PO (08:28)
[2021-02-23] MEDS: busPIRone HCL 10 MG TABLET PO ×3 (08:28→17:26)
[2021-02-23] MEDS: ASPIRIN 81 MG CHEWABLE TABLET PO (08:28)
[2021-02-23] MEDS: FUROSEMIDE 40 MG TABLET PO (08:28)
[2021-02-23] MEDS: METOPROLOL TARTRATE 50 MG TAB PO ×2 (08:28→21:16)
[2021-02-23 11:26] LABS: Glucose Point of Care 276 mg/dl (65-105)
[2021-02-23] MEDS: INSULIN ASPART (*BKC) 100 UNITS/ML SUB-Q ×2 (12:24→17:27)
[2021-02-23] MEDS: INSULIN ASPART (*BKC) 100 UNITS/ML 10 UNITS SUB-Q ×2 (12:25→17:28)
[2021-02-23 12:36] LABS: IFOB Positive Control Positive; Immunochemical Fecal Occult Bl Negative (N)
--- NOTE | 2021-02-23 13:28 | P.PNIM_ITS ---
Progress Note: A&P Assessment and Plan (1) Pneumonia due to COVID-19 virus: Code(s): U07.1 - COVID-19; J12.82 - Pneumonia due to coronavirus disease 2019 Status: Acute Assessment and Plan: * Chest xray no acute cardiopulmonary disease * Chest CTA COVID, No PE * Test positive on Thursday02/18/21 * Supplemental oxygen wean to maintain saturations greater than 92% * Remdesivir and Decadron * inhalers * Robitussin * Actamera 02/21/21 * PT/OT * Isolation 02/22/2021 Interval history: patient lying in the bed is feeling much better patient was diagnosed with COVID-19 7 days ago currently being treated with dexamethasone 10 mg q.day 05/23 and remdesivir she got the loading dose on 02/21, and today 2nd dose 03/19, patient only requirinf 2 L of oxygen this is her baseline, patient states feeling better compared to when she arrived, will continue to monitor will have a PT OT evaluate 02/23/2021 Interval history: patient lying in the bed is feeling much better p atient was diagnosed with COVID-19 8 days ago currently being treated with dexamethasone 10 mg q.day 06/23 and remdesivir she got the loading dose on 02/21, and 3nd dose 04/19, patient only requiring 2 L of oxygen this is her baseline, today patient has several loos BM most likely due to COVID, will give Imodium, patient states feeling better compared to when she arrived, will continue to monitor will have a PT OT evaluate (2) Acute and chronic respiratory failure: Code(s): J96.20 - Acute and chronic respiratory failure, unspecified whether with hypoxia or hypercapnia Status: Acute Assessment and Plan: * Chronic respiratory failure * 2LNC at home (3) COPD (chronic obstructive pulmonary disease): Code(s): J44.9 - Chronic obstructive pulmonary disease, unspecified Status: Acute Assessment and Plan: * Continue inhalers and Decadron * chronically on oxygen at 2 L per nasal cannula * See above (4) Acute on chronic renal failure: Code(s): N17.9 - Acute kidney failure, unspecified; N18.9 - Chronic kidney disease, unspecified Status: Acute Assessment and Plan: * Baseline creatinine 1.7 * Currently 1.7 on labs * trend labs * Avoid nephrotoxic medications * Could be contributing to her anemia (5) Anemia: Qualifiers: Anemia type: due to chronic kidney disease Chronic kidney disease stage: unspecified stage Qualified Code(s): N18.9 - Chronic kidney disease, unspecified; D63.1 - Anemia in chronic kidney disease Code(s): D64.9 - Anemia, unspecified Status: Chronic Assessment and Plan: * H/H fell to 6.9/23.6 * unit of packed red blood cells * probably related to her chronic renal failure * Recently had upper and lower GI With no acute findings * anemia labs ordered * Transfuse if lower than 7 * Supplement (6) CHF exacerbation: Code(s): I50.9 - Heart failure, unspecified Status: Acute Assessment and Plan: * BNP 6390 * Echo ordered and pending * Continue with Lasix, and metoprolol * Trend symptoms (7) Diabetes: Code(s): E11.9 - Type 2 diabetes mellitus without complications Status: Chronic Assessment and Plan: * Current glucose 181 * Accu-Cheks AC and HS. Continue with Lantus and do sliding scale insulin. 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
--- NOTE | 2021-02-23 13:28 | PM.IMPN ---
Progress Note: A&P Assessment and Plan (1) Pneumonia due to COVID-19 virus: Code(s): U07.1 - COVID-19; J12.82 - Pneumonia due to coronavirus disease 2019 Status: Acute Assessment and Plan: Chest xray no acute cardiopulmonary disease Chest CTA COVID, No PE Test positive on Thursday02/18/21 Supplemental oxygen wean to maintain saturations greater than 92% Remdesivir and Decadron inhalers Herberth Thayera 02/21/21 PT/OT Isolation 02/22/2021 Interval history: patient lying in the bed is feeling much better patient was diagnosed with COVID-19 7 days ago currently being treated with dexamethasone 10 mg q.day 05/23 and remdesivir she got the loading dose on 02/21, and today 2nd dose /, patient only requirinf 2 L of oxygen this is her baseline, patient states feeling better compared to when she arrived, will continue to monitor will have a PT OT evaluate 02/23/2021 Interval history: patient lying in the bed is feeling much better patient was diagnosed with COVID-19 8 days ago currently being treated with dexamethasone 10 mg q.day 06/23 and remdesivir she got the loading dose on 02/21, and 3nd dose /4, patient only requiring 2 L of oxygen this is her baseline, today patient has several loos BM most likely due to COVID, will give Imodium, patient states feeling better compared to when she arrived, will continue to monitor will have a PT OT evaluate (2) Acute and chronic respiratory failure: Code(s): J96.20 - Acute and chronic respiratory failure, unspecified whether with hypoxia or hypercapnia Status: Acute Assessment and Plan: Chronic respiratory failure 2LNC at home (3) COPD (chronic obstructive pulmonary disease): Code(s): J44.9 - Chronic obstructive pulmonary disease, unspecified Status: Acute Assessment and Plan: Continue inhalers and Decadron chronically on oxygen at 2 L per nasal cannula See above (4) Acute on chronic renal failure: Code(s): N17.9 - Acute kidney failure, unspecified; N18.9 - Chronic kidney disease, unspecified Status: Acute Assessment and Plan: Baseline creatinine 1.7 Currently 1.7 on labs trend labs Avoid nephrotoxic medications Could be contributing to her anemia (5) Anemia: Qualifiers: Anemia type: due to chronic kidney disease Chronic kidney disease stage: unspecified stage Qualified Code(s): N18.9 - Chronic kidney disease, unspecified; D63.1 - Anemia in chronic kidney disease Code(s): D64.9 - Anemia, unspecified Status: Chronic Assessment and Plan: H/H fell to 6.9/23.6 unit of packed red blood cells probably related to her chronic renal failure Recently had upper and lower GI With no acute findings anemia labs ordered Transfuse if lower than 7 Supplement (6) CHF exacerbation: Code(s): I50.9 - Heart failure, unspecified Status: Acute Assessment and Plan: BNP 6390 Echo ordered and pending Continue with Lasix, and metoprolol Trend symptoms (7) Diabetes: Code(s): E11.9 - Type 2 diabetes mellitus without complications Status: Chronic Assessment and Plan: Current glucose 181 Accu-Cheks AC and HS. Continue with Lantus and do sliding scale insulin. A1c 6.0 (8) Chronic anticoagulation: Code(s): Z79.01 - shelter (current) use of anticoagulants Status: Acute Assessment and Plan: Coumadin due to a history of AFib which now she is in sinus rhythm pig valve placement INR is low at 1.5 Will need to continue Trend INR (9) Hyperlipidemia: Code(s): E78.5 - Hyperlipidemia, unspecified Status: Chronic Assessment and Plan: Continue home medication. Subjective Date/time seen: 02/23/21 13:28 Interval history: Date/Time: 02/20/21 15:54 This is a 60-year-old female patient who came [facility] the [facility]
--- NOTE | 2021-02-23 14:22 | PCRCNOTE ---
Window of time for administration has passed. See next scheduled administration.
[2021-02-23] MEDS: LOPERAMIDE HCL 2 MG CAPSULE PO (15:26)
[2021-02-23] MEDS: INSULIN GLARGINE (*BKC) 100 UNITS/ML 10 UNITS SUB-Q (15:26)
[2021-02-23 16:54] LABS: Glucose Point of Care 331 mg/dl (65-105)
[2021-02-23] MEDS: WARFARIN (*PBKC) 3 MG TABLET 6 MG PO (17:27)
[2021-02-23] MEDS: REMDESIVIR 100 MG/NS 250 ML 100 MG/250 ML BAG 250 MG IVPB (21:15)
[2021-02-23] MEDS: amLODIPine BESYLATE 5 MG TABLET 10 MG PO (21:15)
[2021-02-23] MEDS: POTASSIUM CHLORIDE 10 MEQ TABLET.ER PO (21:15)
[2021-02-23] MEDS: MELATONIN 3 MG TABLET PO (21:16)
[2021-02-23] MEDS: FLUTICASONE/SALMETEROL 115-21 MCG (*SP) INHALER 2 PUFF INHALATION (21:17)
[2021-02-24] VITALS (7 sets, daily range): BP systolic 121–162; BP diastolic 71–95; PULSE 63–752; RESP 16–24; TEMP 35.9–36.8; O2SAT 93–100
[2021-02-24] MEDS: PANTOPRAZOLE 40 MG TABLET PO ×2 (05:33→17:27)
[2021-02-24 07:29] LABS: Hematocrit 30.2 % (37.0-47.0); Hemoglobin 8.8 g/dL (12.0-15.0); Mean Corpuscular HGB Conc 29.1 g/dl (32-36); Mean Corpuscular Hemoglobin 23.5 pg (26-34); Mean Corpuscular Volume 80.5 fl (80-100); Mean Platelet Volume 10.1 fl (7.4-10.4); Platelet Count Result 201 k/mm3 (150-375); Red Blood Count 3.75 M/mm3 (4.2-5.4); White Blood Count 6.5 K/mm3 (4.5-10.0)
[2021-02-24 07:46] LABS: Alanine Aminotransferase 19 U/L (4-35); Albumin Level 3.5 g/dL (3.5-5.1); Alkaline Phosphatase 68 U/L (38-126); Anion Gap 7 mmol/L (8-16); Aspartate Amino Transferase 22 U/L (14-36); Bilirubin,Total 0.4 mg/dL (0.2-1.3); Blood Urea Nitrogen 39 mg/dL (7-17); Calcium 9.1 mg/dL (8.4-10.2); Carbon Dioxide 29 mmol/L (22-30); Chloride 100 mmol/L (98-107); Estimated CRCL calculation 38 ml/min; Estimated Glomerular Filt Rate 38; Glucose 143 mg/dL (65-110); Potassium 4.2 mmol/L (3.4-5.0); Sodium 136 mmol/L (137-145)
[2021-02-24 07:50] LABS: INR 2.7; Prothrombin Time 27.8 Seconds (11.1-14.7)
[2021-02-24 08:24] LABS: Glucose Point of Care 107 mg/dl (65-105)
[2021-02-24] MEDS: FLUTICASONE/SALMETEROL 115-21 MCG (*SP) INHALER 2 PUFF INHALATION ×2 (08:42→20:38)
[2021-02-24] MEDS: INSULIN GLARGINE (*BKC) 100 UNITS/ML 10 UNITS SUB-Q (08:55)
[2021-02-24] MEDS: FUROSEMIDE 40 MG TABLET PO (08:56)
[2021-02-24] MEDS: ATORVASTATIN 40 MG TABLET PO (08:56)
[2021-02-24] MEDS: SERTRALINE HCL 50 MG TABLET PO (08:56)
[2021-02-24] MEDS: METOPROLOL TARTRATE 50 MG TAB PO ×2 (08:57→21:02)
[2021-02-24] MEDS: THERAPEUTIC MULTIVITAMINS/MINERALS TAB (*BKC) 1 TABLET PO (08:57)
[2021-02-24] MEDS: ASPIRIN 81 MG CHEWABLE TABLET PO (08:57)
[2021-02-24] MEDS: busPIRone HCL 10 MG TABLET PO ×3 (08:57→17:28)
[2021-02-24 11:53] LABS: Glucose Point of Care 289 mg/dl (65-105)
[2021-02-24] MEDS: INSULIN ASPART (*BKC) 100 UNITS/ML 10 UNITS SUB-Q ×2 (13:03→17:27)
[2021-02-24] MEDS: INSULIN ASPART (*BKC) 100 UNITS/ML SUB-Q ×2 (13:03→17:26)
[2021-02-24] MEDS: LOPERAMIDE HCL 2 MG CAPSULE PO (13:04)
--- NOTE | 2021-02-24 13:51 | P.PNIM_ITS ---
Progress Note: A&P Assessment and Plan (1) Pneumonia due to COVID-19 virus: Code(s): U07.1 - COVID-19; J12.82 - Pneumonia due to coronavirus disease 2019 Status: Acute Assessment and Plan: * Chest xray no acute cardiopulmonary disease * Chest CTA COVID, No PE * Test positive on Thursday02/18/21 * Supplemental oxygen wean to maintain saturations greater than 92% * Remdesivir and Decadron * inhalers * Robitussin * Actamera 02/21/21 * PT/OT * Isolation 02/22/2021 Interval history: patient lying in the bed is feeling much better patient was diagnosed with COVID-19 7 days ago currently being treated with dexamethasone 10 mg q.day 05/23 and remdesivir she got the loading dose on 02/21, and today 2nd dose /, patient only requirinf 2 L of oxygen this is her baseline, patient states feeling better compared to when she arrived, will continue to monitor will have a PT OT evaluate 02/23/2021 Interval history: patient lying in the bed is feeling much better p atient was diagnosed with COVID-19 8 days ago currently being treated with dexamethasone 10 mg q.day 06/23 and remdesivir she got the loading dose on 02/21, and 3nd dose 2/4, patient only requiring 2 L of oxygen this is her baseline, today patient has several loos BM most likely due to COVID, will give Imodium, patient states feeling better compared to when she arrived, will continue to monitor will have a PT OT evaluate. 02/24/2021 Interval history: patient lying in the bed is feeling much better patient was diagnosed with COVID-19 8 days ago currently being treated with dexamethasone 10 mg q.day 10 and remdesivir she got the loading dose on 02/21, and 3nd dose /4, patient only requiring 2 L of oxygen this is her baseline, since 1210 patient has several loos BM most likely due to COVID, will give Imodium, patient states feeling better compared to when she arrived, currently sitting eating her breakfast, will continue to monitor will have a PT OT evaluate, , (2) Acute and chronic respiratory failure: Code(s): J96.20 - Acute and chronic respiratory failure, unspecified whether with hypoxia or hypercapnia Status: Acute Assessment and Plan: * Chronic respiratory failure * 2LNC at home (3) COPD (chronic obstructive pulmonary disease): Code(s): J44.9 - Chronic obstructive pulmonary disease, unspecified Status: Acute Assessment and Plan: * Continue inhalers and Decadron * chronically on oxygen at 2 L per nasal cannula * See above (4) Acute on chronic renal failure: Code(s): N17.9 - Acute kidney failure, unspecified; N18.9 - Chronic kidney disease, unspecified Status: Acute Assessment and Plan: * Baseline creatinine 1.7 * Currently 1.7 on labs * trend labs * Avoid nephrotoxic medications * Could be contributing to her anemia (5) Anemia: Qualifiers: Anemia type: due to chronic kidney disease Chronic kidney disease stage: unspecified stage Qualified Code(s): N18.9 - Chronic kidney disease, unspecified; D63.1 - Anemia in chronic kidney disease Code(s): D64.9 - Anemia, unspecified Status: Chronic Assessment and Plan: * H/H fell to 6.9/23.6 * unit of packed red blood cells * probably related to her chronic renal failure * Recently had upper and lower GI With no acute findings * anemia labs ordered * Transfuse if lower than 7 * Supplement (6) CHF exacerbation: Code(s): I50.9 - Heart failure, unspecified Status: Acute
--- NOTE | 2021-02-24 13:51 | PM.IMPN ---
Progress Note: A&P Assessment and Plan (1) Pneumonia due to COVID-19 virus: Code(s): U07.1 - COVID-19; J12.82 - Pneumonia due to coronavirus disease 2019 Status: Acute Assessment and Plan: Chest xray no acute cardiopulmonary disease Chest CTA COVID, No PE Test positive on Thursday02/18/21 Supplemental oxygen wean to maintain saturations greater than 92% Remdesivir and Decadron inhalers Cadeitushetal Actamera 02/21/21 PT/OT Isolation 02/22/2021 Interval history: patient lying in the bed is feeling much better patient was diagnosed with COVID-19 7 days ago currently being treated with dexamethasone 10 mg q.day 05/23 and remdesivir she got the loading dose on 02/21, and today 2nd dose /, patient only requirinf 2 L of oxygen this is her baseline, patient states feeling better compared to when she arrived, will continue to monitor will have a PT OT evaluate 02/23/2021 Interval history: patient lying in the bed is feeling much better patient was diagnosed with COVID-19 8 days ago currently being treated with dexamethasone 10 mg q.day 06/23 and remdesivir she got the loading dose on 02/21, and 3nd dose 2/4, patient only requiring 2 L of oxygen this is her baseline, today patient has several loos BM most likely due to COVID, will give Imodium, patient states feeling better compared to when she arrived, will continue to monitor will have a PT OT evaluate. 02/24/2021 Interval history: patient lying in the bed is feeling much better patient was diagnosed with COVID-19 8 days ago currently being treated with dexamethasone 10 mg q.day 10 and remdesivir she got the loading dose on 02/21, and 3nd dose /4, patient only requiring 2 L of oxygen this is her baseline, since 1210 patient has several loos BM most likely due to COVID, will give Imodium, patient states feeling better compared to when she arrived, currently sitting eating her breakfast, will continue to monitor will have a PT OT evaluate, , (2) Acute and chronic respiratory failure: Code(s): J96.20 - Acute and chronic respiratory failure, unspecified whether with hypoxia or hypercapnia Status: Acute Assessment and Plan: Chronic respiratory failure 2LNC at home (3) COPD (chronic obstructive pulmonary disease): Code(s): J44.9 - Chronic obstructive pulmonary disease, unspecified Status: Acute Assessment and Plan: Continue inhalers and Decadron chronically on oxygen at 2 L per nasal cannula See above (4) Acute on chronic renal failure: Code(s): N17.9 - Acute kidney failure, unspecified; N18.9 - Chronic kidney disease, unspecified Status: Acute Assessment and Plan: Baseline creatinine 1.7 Currently 1.7 on labs trend labs Avoid nephrotoxic medications Could be contributing to her anemia (5) Anemia: Qualifiers: Anemia type: due to chronic kidney disease Chronic kidney disease stage: unspecified stage Qualified Code(s): N18.9 - Chronic kidney disease, unspecified; D63.1 - Anemia in chronic kidney disease Code(s): D64.9 - Anemia, unspecified Status: Chronic Assessment and Plan: H/H fell to 6.9/23.6 unit of packed red blood cells probably related to her chronic renal failure Recently had upper and lower GI With no acute findings anemia labs ordered Transfuse if lower than 7 Supplement (6) CHF exacerbation: Code(s): I50.9 - Heart failure, unspecified Status: Acute Assessment and Plan: BNP 6390 Echo ordered and pending Continue with Lasix, and metoprolol Trend symptoms (7) Diabetes: Code(s): E11.9 - Type 2 diabetes mellitus without complications Status: Chronic Assessment and Plan: Current glucose 181 Accu-Cheks AC and HS. Continue with Lantus and do sliding scale insulin. A1c 6.0 (8) Chronic anticoagulation: Code(s): Z79
[2021-02-24 16:46] LABS: Glucose Point of Care 298 mg/dl (65-105)
[2021-02-24] MEDS: WARFARIN (*PBKC) 3 MG TABLET 6 MG PO (17:28)
[2021-02-24] MEDS: REMDESIVIR 100 MG/NS 250 ML 100 MG/250 ML BAG 250 MG IVPB (21:02)
[2021-02-24] MEDS: POTASSIUM CHLORIDE 10 MEQ TABLET.ER PO (21:02)
[2021-02-24] MEDS: amLODIPine BESYLATE 5 MG TABLET 10 MG PO (21:03)
[2021-02-24] MEDS: MELATONIN 3 MG TABLET PO (21:03)
[2021-02-25] VITALS: BP 157/87; PULSE 70; RESP 18; TEMP 36.2; O2SAT 100
[2021-02-25 04:00] VITALS: BP 142/93; PULSE 71; RESP 18; TEMP 36.6; O2SAT 95
[2021-02-25] MEDS: PANTOPRAZOLE 40 MG TABLET PO (05:44)
[2021-02-25 07:51] LABS: Hematocrit 31.1 % (37.0-47.0); Hemoglobin 9.1 g/dL (12.0-15.0); Mean Corpuscular HGB Conc 29.3 g/dl (32-36); Mean Corpuscular Hemoglobin 23.6 pg (26-34); Mean Corpuscular Volume 80.8 fl (80-100); Mean Platelet Volume 10.2 fl (7.4-10.4); Platelet Count Result 181 k/mm3 (150-375); Red Blood Count 3.85 M/mm3 (4.2-5.4); White Blood Count 7.5 K/mm3 (4.5-10.0)
[2021-02-25 08:00] VITALS: BP 152/85; PULSE 67; PULSE 70; RESP 16; TEMP 36.2; O2SAT 100; O2SAT 95
[2021-02-25 08:03] LABS: Alanine Aminotransferase 20 U/L (4-35); Albumin Level 3.5 g/dL (3.5-5.1); Alkaline Phosphatase 71 U/L (38-126); Anion Gap 7 mmol/L (8-16); Aspartate Amino Transferase 21 U/L (14-36); Bilirubin,Total 0.4 mg/dL (0.2-1.3); Blood Urea Nitrogen 38 mg/dL (7-17); Calcium 9.2 mg/dL (8.4-10.2); Carbon Dioxide 27 mmol/L (22-30); Chloride 101 mmol/L (98-107); Estimated CRCL calculation 35 ml/min; Estimated Glomerular Filt Rate 35; Glucose 158 mg/dL (65-110); Magnesium 2.3 mg/dL (1.6-2.3); Potassium 4.3 mmol/L (3.4-5.0); Sodium 135 mmol/L (137-145)
[2021-02-25 08:16] VITALS: PULSE 71
[2021-02-25] MEDS: ASPIRIN 81 MG CHEWABLE TABLET PO (08:16)
[2021-02-25] MEDS: METOPROLOL TARTRATE 50 MG TAB PO (08:16)
[2021-02-25] MEDS: ATORVASTATIN 40 MG TABLET PO (08:16)
[2021-02-25] MEDS: SERTRALINE HCL 50 MG TABLET PO (08:17)
[2021-02-25] MEDS: THERAPEUTIC MULTIVITAMINS/MINERALS TAB (*BKC) 1 TABLET PO (08:17)
[2021-02-25] MEDS: busPIRone HCL 10 MG TABLET PO (08:17)
[2021-02-25] MEDS: FUROSEMIDE 40 MG TABLET PO (08:17)
[2021-02-25] MEDS: INSULIN GLARGINE (*BKC) 100 UNITS/ML 10 UNITS SUB-Q (08:18)
[2021-02-25] MEDS: INSULIN ASPART (*BKC) 100 UNITS/ML 10 UNITS SUB-Q (08:18)
--- NOTE | 2021-02-25 09:26 | PCOTNOTE ---
Spoke with Dr. Ybarra, reports OT evaluation does not need to be complete due to patient being independent at this time. Will discharge OT orders.
[2021-02-25] MEDS: FLUTICASONE/SALMETEROL 115-21 MCG (*SP) INHALER 2 PUFF INHALATION (09:43)
[2021-02-25 09:45] VITALS: O2SAT 96
--- NOTE | 2021-02-25 09:47 | PM.DS ---
DS: Admitting Diagnosis Discharge Date 02/25/2021 Admitting Diagnosis COVID-19 DS: Discharge Diagnosis Discharge Diagnosis (1) Pneumonia due to COVID-19 virus: Code(s): U07.1 - COVID-19; J12.82 - Pneumonia due to coronavirus disease 2018 Status: Acute Assessment and Plan: Chest xray no acute cardiopulmonary disease Chest CTA COVID, No PE Test positive on Thursday02/18/21 Supplemental oxygen wean to maintain saturations greater than 92% Remdesivir and Decadron inhalers Robitussin Actamera 02/21/21 PT/OT Isolation 02/22/2021 Interval history: patient lying in the bed is feeling much better patient was diagnosed with COVID-19 7 days ago currently being treated with dexamethasone 10 mg q.day 05/23 and remdesivir she got the loading dose on 02/21, and today 2nd dose /, patient only requirinf 2 L of oxygen this is her baseline, patient states feeling better compared to when she arrived, will continue to monitor will have a PT OT evaluate 02/23/2021 Interval history: patient lying in the bed is feeling much better patient was diagnosed with COVID-19 8 days ago currently being treated with dexamethasone 10 mg q.day 06/23 and remdesivir she got the loading dose on 02/21, and 3nd dose 2/, patient only requiring 2 L of oxygen this is her baseline, today patient has several loos BM most likely due to COVID, will give Imodium, patient states feeling better compared to when she arrived, will continue to monitor will have a PT OT evaluate. 02/24/2021 Interval history: patient lying in the bed is feeling much better patient was diagnosed with COVID-19 8 days ago currently being treated with dexamethasone 10 mg q.day 10 and remdesivir she got the loading dose on 02/21, and 3nd dose /4, patient only requiring 2 L of oxygen this is her baseline, since 1210 patient has several loos BM most likely due to COVID, will give Imodium, patient states feeling better compared to when she arrived, currently sitting eating her breakfast, will continue to monitor will have a PT OT evaluate, , Patient is clinically stable, feels better and wants to go home. will discharge today, patient is instructed to take Imodium as needed, drinks fluids, keep hydrated, patient to wear mask and keep social distancing, patient to follow up with primary care provider as soon as possible, patient is instructed if any symptoms get worsen to go to nearest ER. Patient is instructed to monitor her blood glucose closely which taking steroids, patient need to have her INR check with primary care as soon as possible. (2) Acute and chronic respiratory failure: Code(s): J96.20 - Acute and chronic respiratory failure, unspecified whether with hypoxia or hypercapnia Status: Acute Assessment and Plan: Chronic respiratory failure 2LNC at home (3) COPD (chronic obstructive pulmonary disease): Code(s): J44.9 - Chronic obstructive pulmonary disease, unspecified Status: Acute Assessment and Plan: Continue inhalers and Decadron chronically on oxygen at 2 L per nasal cannula See above (4) Acute on chronic renal failure: Code(s): N17.9 - Acute kidney failure, unspecified; N18.9 - Chronic kidney disease, unspecified Status: Acute Assessment and Plan: Baseline creatinine 1.7 Currently 1.7 on labs trend labs Avoid nephrotoxic medications Could be contributing to her anemia (5) Anemia: Qualifiers: Anemia type: due to chronic kidney disease Chronic kidney disease stage: unspecified stage Qualified Code(s): N18.9 - Chronic kidney disease, unspecified; D63.1 - Anemia in chronic kidney disease Code(s): D64.9 - Anemia, unspecified Status: Chronic Assessment and Plan: H/H fell to 6.9/23.6 unit of packed red blood cells probably related to her chronic renal failure Recently had upper and lower GI With no acute findings
== END 2021-02-25 11:13 | disposition home or self-care (01) | DRG 137 ==
LOC: ANHED 13:05 → ANH3MEDSUR 14:55
PROVIDERS: Emergency Medicine; Nurse Practitioner; Admitting Provider Internal Medicine; Emergency Provider Emergency Medicine; PCP Physician Assistant; Visit Provider Family Medicine
DX: U07.1 COVID-19 (principal); J12.82 Pneumonia due to coronavirus disease 2019; I13.0 Hypertensive heart and chronic kidney disease with heart failure and stage 1 through stage 4 chronic kidney disease, or unspecified chronic kidney disease; I50.9 Heart failure, unspecified; E78.5 Hyperlipidemia, unspecified; J44.0 Chronic obstructive pulmonary disease with (acute) lower respiratory infection; N17.9 Acute kidney failure, unspecified; I48.20 Chronic atrial fibrillation, unspecified; D63.1 Anemia in chronic kidney disease; E11.22 Type 2 diabetes mellitus with diabetic chronic kidney disease; N18.9 Chronic kidney disease, unspecified; Z99.81 Dependence on supplemental oxygen; I25.2 Old myocardial infarction; Z86.73 Personal history of transient ischemic attack (TIA), and cerebral infarction without residual deficits; Z95.2 Presence of prosthetic heart valve; Z90.49 Acquired absence of other specified parts of digestive tract; Z90.710 Acquired absence of both cervix and uterus; Z87.891 Personal history of nicotine dependence; Z79.01 Long term (current) use of anticoagulants; J96.11 Chronic respiratory failure with hypoxia
CPT/HCPCS: 36415; 36430; 71045; 71275; 80053; 80069; 82274; 82565; 82948; 83036; 83690; 83735; 83880; 84439; 84443; 84460; 84480; 85014; 85018; 85025; 85027; 85610; 86140; 86850; 86900; 86901; 86920; 93005; 94640; 97161; 99285; A9270; J1100; J1650; J1815; J7050; P9016; Q0249; Q9967

== ENCOUNTER 2021-10-17 12:01 | Emergency (ER) | payer OTHER, SELFPAY ==
[2021-10-17] VITALS (10 sets, daily range): BP systolic 133–151; BP diastolic 66–84; PULSE 68–97; RESP 15–23; TEMP 37.1; O2SAT 96–98
--- NOTE | ~2021-10-17 | XR_ITS ---
XR chest 1V portable DATE: 10/17/2021 12:40 INDICATION: Dyspnea, shortness of breath. Cough. History of COPD and atrial fibrillation. TECHNIQUE: Upright AP portable chest on 10/2021 at 1235 hours COMPARISON: 03/12/2021 CT pulmonary scan FINDINGS: Status post sternotomy. Cardiomegaly. Aortic calcification and unfolding. Mild discoid atelectasis or scarring in the left upper lobe and minimal infiltrate or atelectasis in the lung bases is suggested. Mild blunting of the costophrenic angles may indicate small pleural effusions. IMPRESSION: Left upper lobe discoid atelectasis or scarring and suggestion of minimal infiltrate or a telectasis in the lung bases Cannot exclude small pleural effusions Cardiomegaly Osteopenia Reviewed, dictated and finalized at location B. IMPRESSION: Left upper lobe discoid atelectasis or scarring and suggestion of m inimal infiltrate or atelectasis in the lung bases Cannot exclude small pleural effusions Cardiomegaly Osteopenia
--- NOTE | ~2021-10-17 | CT_ITS ---
EXAMINATION: CT brain wo con DATE: 10/17/2021 12:30 INDICATION: Headaches. TECHNIQUE: Computed tomography (CT) of the head was performed without intravenous contrast. The dose- length product was 605.33 mGy-cm. Automated exposure control and iterative reconstruction technique w ere employed. COMPARISON: CT dated 08/06/2020 FINDINGS: There is a chronic left lacunar infarction. There are scattered moderate-severe periventric ular and subcortical white matter changes, most likely related to small vessel ischemic disease (micr oangiopathy). No ventriculomegaly or midline shift. Basilar cisterns are patent. No acute intracrania l hemorrhage, infarction, mass or mass effect. Paranasal sinuses and mastoids are pneumatized. IMPRESSION: 1. No acute intracranial abnormality. 2: Chronic left lacunar infarction. 3: Chronic age-related findings. Reviewed, dictated and finalized at location A.
--- NOTE | 2021-10-17 12:14 | ECG_ITS ---
Measurements Intervals [place] Rate: 86 P: 78 ID: [id number] QRS: 17 QRSD: 76 T: 100 QT: 361 QTc: 433 Interpretive Statements SINUS RHYTHM WITH FIRST DEGREE AV BLOCK WITH FREQUENT VENTRICULAR PREMATURE COMPLEXES NONSPECIFIC ST & T-WAVE ABNORMALITY BASELINE ARTIFACT ABNORMAL ECG COMPARED TO ECG 02/20/2021 10:05:09 PVCS NOW PRESENT Electronically Signed On 10-17-2021 15:22:55 CDT by Conner Hansen M.D.
--- NOTE | 2021-10-17 12:15 | ED.GENADULT ---
HPI - General Adult General Chief complaint: Shortness of Breath/Dyspnea Stated complaint: SAM/emesis History of Present Illness HPI narrative: This is a 61-year-old female presenting to ED with chief complaint of headache. Patient has been having a diffuse headache that is dull and pounding for the last 3 days. It was not sudden/maximal in onset. It is associated with several episodes of vomiting. The patient denies vision changes or numbness weakness or tingling in extremity. She denies trauma. She does take warfarin for atrial fibrillation and valve replacement. Patient has not missed any of her home medications. Patient is also complaining of shortness of breath although she has a chronic COPD on 4 L home oxygen. She says that this is essentially her baseline. She denies fever chills or productive cough. She denies lower extremity edema. She has been taking inhalers and moderate pills as instructed. Related Data Home Medications Medication Instructions Recorded Confirmed metoprolol tartrate 50 mg tablet 50 mg PO BID 07/11/20 02/20/21 potassium chloride 20 mEq 10 meq PO HS 07/11/20 02/20/21 tablet,extended release amlodipine 10 mg tablet 10 mg PO HS 10/07/20 02/20/21 insulin glargine 100 unit/mL (3 36 unit subcut DAILY 10/07/20 02/20/21 mL) subcutaneous pen (Lantus Solostar U-100 Insulin) katmrbpv-pkwf-qryws acid 200 1 tablet PO DAILY 10/07/20 02/20/21 mcg-herbal no.293 37.5 mg chewable tablet (Alive Women's Gummy Vitamin) aspirin 81 mg tablet 81 mg PO DAILY 02/20/21 02/20/21 atorvastatin 40 mg tablet 40 mg PO DAILY 02/20/21 02/20/21 buspirone 10 mg tablet 10 mg PO TID 02/20/21 02/20/21 insulin aspart U-100 100 unit/mL 10 unit subcut ACINSULIN 02/20/21 02/20/21 (3 mL) subcutaneous pen (Novolog Flexpen U-100 Insulin aspart) melatonin 3 mg tablet 3 mg PO HS 02/20/21 02/20/21 sertraline 50 mg tablet 50 mg PO DAILY 02/20/21 02/20/21 warfarin 4 mg tablet 4 mg PO DAILY 02/20/21 02/20/21 gabapentin 300 mg tablet mg PO 10/17/21 spironolactone 25 mg tablet mg 10/17/21 torsemide 20 mg tablet mg 10/17/21 10/17/21 Allergies Allergy/AdvReac Type Severity Reaction Status Date / Time simvastatin [From Zocor] AdvReac Hypotension Verified 10/17/21 12:28 Review of Systems Review of Systems: CONSTITUTIONAL: Admits night sweats. EYES: No eye pain ENT: Denies rhinorrhea CARDIOVASCULAR: Denies palpitations RESPIRATORY: Denies hemoptysis GASTROINTESTINAL: Denies hematemesis GENITOURINARY: Denies hematuria. SKIN: Denies rash MUSCULOSKELETAL: Denies myalgia. NEUROLOGIC: Denies weakness. PSYCHIATRIC: Denies delusions PMFSH Past Medical History Medical History Anemia COPD (chronic obstructive pulmonary disease) Diabetes Heart attack History of atrial fibrillation Hyperlipidemia Stroke Surgical History Surgical History H/O tubal ligation H/O: hysterectomy History of heart valve replacement Hx of cholecystectomy Family History Family History Father Hypertension Depression Heart problem Cerebrovascular accident Mother Hypertension Heart problem Depression Cerebrovascular accident Social History Social History Social History: The patient lives with her son and [id number]. The [id number] is the durable power attorney general for healthcare. The patient has 4 children and she is . 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 She desires to be a full code and the furacqyy-pv-nbs is the durable power attorney general for healthcare. Code status full code Smoking status: Former smoker Alcohol intake: never Substance use: never Gender identity (if verbalized by the patient): Female Spiritual care concerns: No Exam Narrative: APPEARANCE: No apparent
[2021-10-17 12:26] LABS: Basophils Absolute Auto 0.1 K/mm3 (0.0-0.1); Basophils Percent Auto 0.4 % (0.2-1.2); Eosinophils Absolute Auto 0.2 K/mm3 (0-0.3); Eosinophils Percent Auto 1.6 % (0-4.4); Hematocrit 32.3 % (37.0-47.0); Hemoglobin 8.6 g/dL (12.0-15.0); Immature Granulocyte Absolute 0.06 K/mm3 (0.00-0.031); Immature Granulocyte Percent A 0.5 % (0-0.5); Lymphocytes Absolute Auto 0.47 K/mm3 (0.9-3.2); Lymphocytes Percent Auto 3.9 % (18.3-44.2); Mean Corpuscular HGB Conc 26.6 g/dl (32-36); Mean Corpuscular Hemoglobin 18.9 pg (26-34); Mean Corpuscular Volume 71.1 fl (80-100); Mean Platelet Volume 9.9 fl (7.4-10.4); Monocytes Absolute Auto 0.6 K/mm3 (0.1-0.6); Monocytes Percent Auto 4.7 % (2.6-8.5); Neutrophils Absolute Auto 10.8 K/mm3 (1.3-6.7); Neutrophils Percent Auto 88.9 % (45.5-73.1); Platelet Count Result 263 k/mm3 (150-375); Red Blood Count 4.54 M/mm3 (4.2-5.4); Red Cell Distribution Width 19.4 % (11.5-14.5); White Blood Count 12.2 K/mm3 (4.5-10.0)
[2021-10-17] MEDS: ALBUTEROL SULFATE NEB 2.5 MG/3 ML INH 5 MG INHALATION (12:38)
[2021-10-17] MEDS: IPRATROPIUM BR 0.02% INH SOLN 0.5 MG/2.5 ML VIAL INHALATION (12:39)
[2021-10-17 12:42] LABS: Prothrombin Time 22.3 Seconds (11.1-14.7)
[2021-10-17 12:43] LABS: Partial Thromboplastin Time 38.6 SECONDS (22.3-36.8)
[2021-10-17 12:48] LABS: NT Pro B Type Natriuretic Pept 3710 pg/mL (5-100); Troponin I 0.021 ng/mL (0.000-0.034)
[2021-10-17] MEDS: ACETAMINOPHEN 500 MG TABLET 1000 MG PO (12:51)
[2021-10-17] MEDS: PROCHLORPERAZINE EDISYLATE 10 MG/2 ML VIAL IV PUSH (12:52)
[2021-10-17] MEDS: diphenhydrAMINE HCl INJ 50 MG/ML VIAL 25 MG IV PUSH (12:52)
[2021-10-17 12:56] LABS: Platelet Estimate Adequate (Adequate)
[2021-10-17 12:57] LABS: Anisocytosis 1+ (NORMAL); Hypochromasia 1+ (NORMAL); Ovalocytes 2+ (NORMAL); Poikilocytosis 1+ (NORMAL)
[2021-10-17 13:11] LABS: Anion Gap 11 mmol/L (8-16); Blood Urea Nitrogen 31 mg/dL (7-17); Calcium 9.2 mg/dL (8.4-10.2); Carbon Dioxide 20 mmol/L (22-30); Chloride 106 mmol/L (98-107); Estimated CRCL calculation 31 ml/min; Estimated Glomerular Filt Rate 31; Glucose 138 mg/dL (65-110); Magnesium 2.3 mg/dL (1.6-2.3); Potassium 4.7 mmol/L (3.4-5.0); Sodium 137 mmol/L (137-145)
== END 2021-10-17 14:01 | disposition home or self-care (01) ==
PROVIDERS: Emergency Provider Emergency Medicine; PCP Physician Assistant
DX: R51.9 Headache, unspecified (principal); J96.10 Chronic respiratory failure, unspecified whether with hypoxia or hypercapnia; D64.9 Anemia, unspecified; E11.9 Type 2 diabetes mellitus without complications; I48.91 Unspecified atrial fibrillation; E78.5 Hyperlipidemia, unspecified; J44.9 Chronic obstructive pulmonary disease, unspecified; I25.2 Old myocardial infarction; Z79.4 Long term (current) use of insulin; Z79.01 Long term (current) use of anticoagulants
CPT/HCPCS: 36415; 70450; 71045; 80048; 83735; 83880; 84484; 85025; 85610; 85730; 93005; 94640; 96374; 96375; 99284; A9270; J0780; J1200

== ENCOUNTER 2022-04-18 18:53 | Inpatient (IN) | payer OTHER, SELFPAY ==
[2022-04-18] VITALS (19 sets, daily range): BP systolic 126–159; BP diastolic 83–110; PULSE 81–101; RESP 15–30; TEMP 36.1–36.3; O2SAT 92–99; BMI 42.7
--- NOTE | ~2022-04-18 | US_ITS ---
Renal-Bladder ultrasound Clinical History: Acute on chronic renal insufficiency Technique: Real-time sonographic imaging of the kidneys and urinary bladder was performed. Findings: The right kidney measures 10.3 cm in length and the left kidney measures 8.1 cm. There is n o hydronephrosis or renal calculus identified. Renal cortical echogenicity is increased. No renal mas s lesion is identified. The urinary bladder is moderately distended at the time of this exam. No intraluminal echoes are iden tified. No abnormal wall thickening is seen. Impression: Increased renal echogenicity suggest chronic medical renal disease. Right kidney measures significantly longer than the left kidney. This could reflect asymmetric left r enal atrophy. No hydronephrosis. Reviewed, dictated and finalized at location M. [employer] SOFTWARE DEVELOPER Impression: Increased renal echogenicity suggest chronic medical renal disease. Right kidney measures significantly longer than the left kidney. This could ref lect asymmetric left renal atrophy. No hydronephrosis.
--- NOTE | ~2022-04-18 | XR_ITS ---
Right foot Technique: AP and lateral views were obtained. Clinical History: Bruising, erythema Findings: No acute fracture or dislocation is seen. Osseous alignment is anatomic. Joint spaces are p reserved without erosive or degenerative change. There is mild dorsal soft tissues along the forefoot . Impression: Mild dorsal soft tissue swelling of the forefoot, nonspecific. No fracture or dislocation seen. Reviewed, dictated and finalized at location . [employer] Impression: Mild dorsal soft tissue swelling of the forefoot, nonspecific. No fracture or dislocation seen.
--- NOTE | ~2022-04-18 | CT_ITS ---
CT scan of the Neck and Chest Technique: 2.5 mm axial scans were obtained through the neck and chest without IV contrast administra tion. Coronal and sagittal reconstructions were obtained. Dose reduction technique was used on this s can by utilizing automated exposure control and iterative reconstruction technique. The dose-length p roduct (DLP) was 1186.56 mGy-cm. Clinical History: Adenopathy COMPARISON: 02/20/2021 CT Neck Findings: Left supraclavicular lymphadenopathy present, largest node measuring 2.2 x 1.4 cm i n size. No other adenopathy seen in the remainder of the neck. Parapharyngeal spaces appear normal bi laterally. The parotid and submandibular glands appear normal. The pharyngeal mucosal spaces appear normal. No soft tissue masses are seen in the neck. The thyroid gland appears normal. Images of the lung apices reveal no abnormalities. CT Chest Findings: There is a prominent right paratracheal stripe lymph node, measuring 15 mm in shor t axis, but with apparent preserved fatty hilum. Probable additional enlarged lymph node noted in the AP window region.. The mediastinal soft tissues appear normal. There is no evidence of pleural or pericardial effusion. Lungs demonstrate probable very subtle mosaic attenuation pattern of the lungs. There is linear scarr ing or atelectasis at the left midlung. No suspicious pulmonary nodule identified. Images through the upper abdomen reveal no abnormalities. Impression: Enlarged lymph nodes in the left supraclavicular region and in the mediastinum, as detailed above, al l of which are stable since 02/20/2021. Stability over this time interval is most consistent with himanshu gnity. Probable very subtle mosaic attenuation pattern of the lungs. Correlate for hypoventilatory change ve rsus minimal pulmonary edema, bronchiolitis, asthma, or possibly chronic PE. Reviewed, dictated and finalized at location M. HANDISING ASSISTANT Impression: Enlarged lymph nodes in the left supraclavicular region and in the mediastinum, as detailed above, all of which are stable since 02/20/2021. Stability over thi s time interval is most consistent with benignity. Probable very subtle mosaic attenuation pattern of the lungs. Correlate for hyp oventilatory change versus minimal pulmonary edema, bronchiolitis, asthma, or p ossibly chronic PE.
--- NOTE | ~2022-04-18 | XR_ITS ---
EXAMINATION: XR chest 2V DATE: 04/18/2022 19:43 INDICATION: Shortness of breath. TECHNIQUE: Frontal and lateral views of the chest were obtained. COMPARISON: Chest one view 10/17/2021, chest CT 02/20/2021 FINDINGS: There is mild atelectasis in left midlung zone. No pleural effusion or pneumothorax. Cardio megaly is noted. Median sternotomy wires are noted. There is a closure device at left atrial appendag e. There are surgical clips in the abdomen. IMPRESSION: 1. Mild atelectasis in left midlung zone. 2. Cardiomegaly. Reviewed, dictated and finalized at location A. ESMITH
--- NOTE | 2022-04-18 19:11 | ECG_ITS ---
Measurements Intervals [place] Rate: 88 P: 77 NV: 268 QRS: 46 QRSD: 86 T: -51 QT: 375 QTc: 455 Interpretive Statements SINUS RHYTHM WITH FIRST DEGREE AV BLOCK NONSPECIFIC ST AND T-WAVE ABNORMALITY ABNORMAL ECG COMPARED TO ECG 10/17/2021 12:09:51 NO SIGNIFICANT CHANGES Electronically Signed On 04-19-2022 12:46:56 SECOND FACING BASTER by Fortunato You M.D.
[2022-04-18 19:27] LABS: Basophils Absolute Auto 0.1 K/mm3 (0.0-0.1); Basophils Percent Auto 0.4 % (0.2-1.2); Eosinophils Absolute Auto 0.1 K/mm3 (0-0.3); Eosinophils Percent Auto 0.5 % (0-4.4); Hematocrit 50.2 % (37.0-47.0); Immature Granulocyte Absolute 0.09 K/mm3 (0.00-0.031); Immature Granulocyte Percent A 0.7 % (0-0.5); Lymphocytes Absolute Auto 0.69 K/mm3 (0.9-3.2); Lymphocytes Percent Auto 5.3 % (18.3-44.2); Mean Corpuscular HGB Conc 29.9 g/dl (32-36); Mean Corpuscular Hemoglobin 27.7 pg (26-34); Mean Corpuscular Volume 92.8 fl (80-100); Mean Platelet Volume 11.6 fl (7.4-10.4); Monocytes Absolute Auto 0.8 K/mm3 (0.1-0.6); Monocytes Percent Auto 6.1 % (2.6-8.5); Neutrophils Absolute Auto 11.4 K/mm3 (1.3-6.7); Platelet Count Result 199 k/mm3 (150-375); Red Blood Count 5.41 M/mm3 (4.2-5.4); Red Cell Distribution Width 16.2 % (11.5-14.5)
[2022-04-18 19:47] LABS: Ovalocytes 1+ (NORMAL); Platelet Estimate Adequate (Adequate); Schistocytes None Seen (NORMAL)
--- NOTE | 2022-04-18 19:49 | ED.SOB ---
HPI - SOB/Dyspnea General Chief Complaint: Shortness of Breath/Dyspnea Stated Complaint: Leg swelling and fluid on lungs Time Seen by Provider: 04/18/22 19:10 History of Present Illness HPI Narrative: 61-year-old female presented to the emergency department for evaluation of worsening shortness of breath. Patient does have a history of COPD and CHF. Patient is normally on 4 L of oxygen by nasal cannula. Patient reports over the last 5 days she has had worsening shortness of breath but denies any new O2 requirement. Patient does report worsening exertional shortness of breath. Patient states she has had increased lower extremity swelling. Patient does take torsemide. Patient does take Coumadin for her A. fib. Patient had follow-up with her primary care physician about a week ago but his symptoms had not worsened at that point. Patient was seen by her home health nurse today and in discussion with the home health physician she was advised to present to the emergency department for evaluation Patient does have a previous medical history of acute on chronic renal failure, diabetes, COPD, CHF Related Data Home Medications Medication Instructions Recorded Confirmed metoprolol tartrate 50 mg tablet 50 mg PO BID 07/11/20 04/18/22 potassium chloride 20 mEq 10 meq PO HS 07/11/20 04/18/22 tablet,extended release amlodipine 10 mg tablet 10 mg PO HS 10/07/20 04/18/22 insulin glargine 100 unit/mL (3 42 unit subcut DAILY 10/07/20 04/18/22 mL) subcutaneous pen (Lantus Solostar U-100 Insulin) drbtdqtc-zoxs-qkcob acid 200 1 tablet PO DAILY 10/07/20 04/18/22 mcg-herbal no.293 37.5 mg chewable tablet (Alive Women's Gummy Vitamin) aspirin 81 mg tablet 81 mg PO DAILY 02/20/21 04/18/22 atorvastatin 40 mg tablet 40 mg PO DAILY 02/20/21 04/18/22 buspirone 10 mg tablet 10 mg PO TID 02/20/21 04/18/22 insulin aspart U-100 100 unit/mL 10 unit subcut ACINSULIN 02/20/21 04/18/22 (3 mL) subcutaneous pen (Novolog FlexPen U-100 Insulin aspart) melatonin 3 mg tablet 3 mg PO HS 02/20/21 04/18/22 sertraline 50 mg tablet 50 mg PO DAILY 02/20/21 04/18/22 warfarin 4 mg tablet 4 mg PO DAILY 02/20/21 04/18/22 gabapentin 300 mg tablet 300 mg PO DAILY 10/17/21 04/18/22 spironolactone 25 mg tablet 25 mg PO DAILY 10/17/21 04/18/22 ferrous sulfate 324 mg (65 mg 324 mg PO DAILY 04/18/22 04/18/22 iron) tablet,delayed release furosemide 80 mg tablet 80 mg PO DAILY 04/18/22 04/18/22 sucralfate 1 gram tablet 50 mg PO DAILY 04/18/22 04/18/22 Allergies Allergy/AdvReac Type Severity Reaction Status Date / Time simvastatin [From Zocor] AdvReac Hypotension Verified 10/17/21 12:28 Review of Systems Review of Systems: CONSTITUTIONAL: Denies fever, chills, or sweats. EYES: Denies visual changes, redness, or discharge. ENT: Denies rhinorrhea, congestion, sore throat, or otalgia. CARDIOVASCULAR: Denies chest pain, palpitations, or edema. RESPIRATORY: See HPI GASTROINTESTINAL: Denies abdominal pain, nausea, vomiting, or diarrhea. GENITOURINARY: Denies dysuria or hematuria. SKIN: Denies rash or itching. MUSCULOSKELETAL: Denies back pain, joint pain, or myalgia. NEUROLOGIC: Denies headache, numbness, or weakness. [facility] Past Medical History Medical History Anemia COPD (chronic obstructive pulmonary disease) Diabetes Heart attack History of atrial fibrillation Hyperlipidemia Stroke Surgical History Surgical History H/O tubal ligation H/O: hysterectomy History of heart valve replacement Hx of cholecystectomy Family History Family History Father Hypertension Depression Heart problem Cerebrovascular accident Mother Hypertension Heart problem Depression Cerebrovascular accident Social History Social History Social Histor
[2022-04-18 20:00] LABS: Alanine Aminotransferase 43 U/L (6-35); Albumin Level 3.9 g/dL (3.5-5.1); Alkaline Phosphatase 84 U/L (38-126); Anion Gap 5 mmol/L (8-16); Aspartate Amino Transferase 32 U/L (14-36); Bilirubin,Total 0.7 mg/dL (0.2-1.3); Blood Urea Nitrogen 58 mg/dL (7-17); Calcium 8.7 mg/dL (8.4-10.2); Carbon Dioxide 26 mmol/L (22-30); Chloride 104 mmol/L (98-107); Estimated CRCL calculation 26 ml/min; Estimated Glomerular Filt Rate 23; Glucose 187 mg/dL (65-110); Potassium 4.4 mmol/L (3.4-5.0); Sodium 135 mmol/L (137-145)
[2022-04-18 20:09] LABS: NT Pro B Type Natriuretic Pept 5260 pg/mL (19.9-100)
[2022-04-18 20:50] LABS: Prothrombin Time 45.9 Seconds (11.1-14.7)
[2022-04-18 20:51] LABS: Partial Thromboplastin Time 44.1 SECONDS (22.3-36.8)
[2022-04-18 21:17] LABS: INR 5.1
[2022-04-18] MEDS: fentaNYL CITRATE INJ (*CRX) 100 MCG/2 ML VIAL 50 MCG IV PUSH (21:52)
[2022-04-18 21:56] LABS: Influenza A QL RT-PCR Negative (Negative); Influenza B QL RT-PCR Negative (Negative); SARS-CoV-2 RNA PCR Negative
[2022-04-18] MEDS: BUMETANIDE INJ 1 MG/4 ML VIAL IV PUSH (22:33)
--- NOTE | 2022-04-18 23:13 | ADMGEN ---
This patient, Danielle Jasmine, was admitted to [facility] Surg Room 324-02. Patient/family oriented to hospital policies and general routines including ID bracelet, bed and alarms, visiting hours, pain management, procedures, bathroom and other care routines, personal items, smoking policy, room service/diet, and visiting hours. Information on how to activate the Rapid Response Team has been discussed. Patient/Family are encouraged to report perceived risks to care and to ask questions if they do not understand what they are told or what they should do.
[2022-04-19] VITALS (8 sets, daily range): BP systolic 136–154; BP diastolic 79–100; PULSE 89–95; RESP 18–22; TEMP 36.2–36.4; O2SAT 94–100
--- NOTE | 2022-04-19 05:02 | PC.NURSE ---
Pt frequent void to the bathroom stand by assist. 4L NC wheeze notified after up to bathroom STRINGER, had to rest after urinated. text Dr. Leon- about need for neb meds. Dr Leon responded, aware of situation.
[2022-04-19 07:36] LABS: Anion Gap 9 mmol/L (8-16); Blood Urea Nitrogen 56 mg/dL (7-17); Calcium 9.1 mg/dL (8.4-10.2); Carbon Dioxide 26 mmol/L (22-30); Chloride 104 mmol/L (98-107); Estimated CRCL calculation 28 ml/min; Estimated Glomerular Filt Rate 25; Glucose 284 mg/dL (65-110); Potassium 4.3 mmol/L (3.4-5.0); Sodium 139 mmol/L (137-145)
[2022-04-19 07:39] LABS: Magnesium 2.5 mg/dL (1.6-2.3); Phosphorus 3.1 mg/dL (2.5-4.5)
[2022-04-19 07:51] LABS: Hematocrit 52.3 % (37.0-47.0); Hemoglobin 15.3 g/dL (12.0-15.0); Mean Corpuscular HGB Conc 29.3 g/dl (32-36); Mean Corpuscular Hemoglobin 27.5 pg (26-34); Mean Corpuscular Volume 94.1 fl (80-100); Mean Platelet Volume 10.8 fl (7.4-10.4); Platelet Count Result 162 k/mm3 (150-375); Red Blood Count 5.56 M/mm3 (4.2-5.4); Red Cell Distribution Width 16.1 % (11.5-14.5); White Blood Count 13.8 K/mm3 (4.5-10.0)
[2022-04-19 08:12] LABS: Glucose Point of Care 273 mg/dl (65-105)
[2022-04-19] MEDS: GABAPENTIN 300 MG CAPSULE PO (09:12)
[2022-04-19] MEDS: SERTRALINE HCL 50 MG TABLET PO (09:12)
[2022-04-19] MEDS: ASPIRIN 81 MG ENTERIC TABLET PO (09:12)
[2022-04-19] MEDS: SPIRONOLACTONE 25 MG TABLET PO (09:13)
[2022-04-19] MEDS: busPIRone HCL 10 MG TABLET PO ×3 (09:13→17:01)
[2022-04-19] MEDS: METOPROLOL TARTRATE 50 MG TAB PO ×2 (09:13→21:09)
[2022-04-19] MEDS: predniSONE 10 MG TABLET PO (09:14)
[2022-04-19] MEDS: INSULIN GLARGINE (*BKC) 100 UNITS/ML 42 UNITS SUB-Q (09:14)
[2022-04-19] MEDS: ATORVASTATIN 40 MG TABLET PO (09:14)
[2022-04-19] MEDS: INSULIN ASPART (*BKC) 100 UNITS/ML 10 UNITS SUB-Q ×3 (09:14→17:01)
[2022-04-19] MEDS: FERROUS SULFATE 324 MG TABLET PO (09:14)
[2022-04-19 10:46] LABS: Prothrombin Time 48.6 Seconds (11.1-14.7)
[2022-04-19 10:52] LABS: INR 5.5
--- NOTE | 2022-04-19 11:20 | PM.IMHP ---
H&P: HPI History of Present Illness Date/Time: 04/19/22 11:20 Chief Complaint: Shortness of breath Narrative: 61yo female with CHF, COPD and chronic respiratory failure here for SOB. Patient states she has become more short of breath over the past week. She has been using her albuterol inhaler 3 to 4 times a day with minimal benefit. Over the past 5 days, she has noted increasing leg edema. She does do daily weights and has noted a 15 lb weight gain at least. She is compliant with her Lasix 80 mg daily. She is adherent to a low-sodium diet. She was seen by Cardiology on a routine visit about 5 days prior to this admission and she was noted to have slight pedal edema. Patient denies any orthopnea but does have dyspnea on exertion. She has nocturia 2-3 times per night which is chronic. She has a nonproductive cough. No chest pain or palpitations. She has chronic respiratory failure on 4 L O2 nasal cannula. She does not use more oxygen at sleep or with exertion. She is compliant with her CPAP at night. She has not had a recent sleep study. Her INR was elevated on admission here and she says she has been compliant with the Coumadin and no change in her dose. She does mention that her right foot was bruised but there is no pain to the distal right foot. She does have significant peripheral neuropathy with occasional flares of the pain. She states that she is having a flare this morning with bilateral thigh and leg pain. She normally takes muscle relaxant and/or hydrocodone prn for this pain. This is typical of her symptoms at home. She denies any nausea, vomiting, diarrhea, abdominal pain, odynophagia, dysphagia, dysuria or hematuria. She does have a dry mouth. Because of the increasing shortness of breath, she presented to the emergency room for evaluation. She does mention that she has been wheezing and has been compliant with her other inhalers for her COPD. Review of Systems Review of Systems: Hx of CVA with mild left sided residual weakness. She normal walks unassisted at home. She does have chronic ptosis. All systems reviewed & are unremarkable except as noted in HPI and below PMFSH Past Medical History Medical History (Updated 04/19/22 @ 11:54 by Kolton Brown MD) Anemia CAD (coronary artery disease) COPD (chronic obstructive pulmonary disease) Diabetes Heart attack History of atrial fibrillation Hyperlipidemia Stroke Surgical History Surgical History H/O tubal ligation H/O: hysterectomy History of heart valve replacement Hx of cholecystectomy Family History Family History Father Hypertension Depression Heart problem Cerebrovascular accident Mother Hypertension Heart problem Depression Cerebrovascular accident Social History Social History Social History: The patient lives with her son and epqbdztw-xa-lyf. The mxcfyyvd-pk-zdh is the durable power divorce attorney for healthcare. The patient has 4 children and she is . 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 She desires to be a full code and the cexxjxbz-yv-tfo is the durable power divorce attorney for healthcare. Code status full code Years smoked: 40 Smoking status: Former smoker Alcohol intake: never Substance use: never Lack of Transportation: No Lack of Food: Never True Current Housing: I Have Housing Concerned About Future Housing: No Difficulty Paying Gas/Electric Bills: No Difficulty Paying for Meds: No Currently Unemployed: No Education: High School Diploma/GED Difficulty w/ Childcare or Family Care: No Gender identity (if verbalized by the patient): Female Spiritual care concerns: No Meds Home Medications and Allergies Home Medications Medication Instructions Recorded Confirmed Type metoprolol tartrate 50 mg tabl
[2022-04-19] MEDS: MORPHINE SULFATE (*CRX) 2 MG/ML INJ 1 MG IV PUSH (11:51)
[2022-04-19] MEDS: BUMETANIDE INJ 1 MG/4 ML VIAL IV PUSH ×2 (11:52→17:01)
[2022-04-19 11:59] LABS: Glucose Point of Care 270 mg/dl (65-105)
--- NOTE | 2022-04-19 13:17 | P.CONNP_ITS ---
Assessment and Plan Assessment and plan (1) ANNEMARIE (acute kidney injury): Code(s): N17.9 - Acute kidney failure, unspecified Status: Acute Assessment and Plan: * due to CHF exacerbation (?) * creatinine better after IV diuretics (element of renal venous HTN?) * follow trend of renal function with IV bumex * check renal ultrasound and urine eosinophils * hold off on urine electrolytes given need for diuretics (2) Stage 3b chronic kidney disease: Code(s): N18.32 - Chronic kidney disease, stage 3b Status: Chronic Assessment and Plan: * baseline creatinine seems to run 1.4 - 1.7mg/dl * likely secondary to DM, HTN, and vascular disease (CAD + hyperlipidemia + CVA + CHF...etc) (3) Acute and chronic respiratory failure: Code(s): J96.20 - Acute and chronic respiratory failure, unspecified whether with hypoxia or hypercapnia Status: Acute Assessment and Plan: * as noted by presentation symptoms of tachypnea/retractions * presumably related to her COPD and CHF * treatment as noted (see #4 and #5) (4) CHF exacerbation: Qualifiers: Heart failure type: unspecified Qualified Code(s): I50.9 - Heart failure, unspecified Code(s): I50.9 - Heart failure, unspecified Status: Acute Assessment and Plan: * as noted by dyspnea, LE edema, elevated BNP, and increase in weight (despite negative CXR) * suspect acute on chronic diastolic heart failure based on last Echo * renal function tolerating IV diuretics at this time * prehaps a component of renal venous HTN which is being treated with diuretic therapy * follow I/Os, daily weights, and respiratory status (5) COPD (chronic obstructive pulmonary disease): Code(s): J44.9 - Chronic obstructive pulmonary disease, unspecified Status: Acute Assessment and Plan: * some wheezing noted on presentation * related to COPD versus CHF * continue inhalers and steroids * nebulizer treatments as needed (6) History of atrial fibrillation: Code(s): Z86.79 - Personal history of other diseases of the circulatory system Status: Acute Assessment and Plan: * rate control strategy * on anticoagulation (7) Diabetes: Code(s): E11.9 - Type 2 diabetes mellitus without complications Status: Chronic Assessment and Plan: * follow accuchecks * glycemic control per hospitalists Will continue to follow. History of Present Illness Reason for Consult Consult date: 04/19/22 Reason for consult: acute renal failure (on chronic kidney disease) Chief Complaint Chief complaint: CHF,supratherapeutic INR, acute on CKD,dyspnea History of Present Illness Narrative: The patient is a 61-year-old female with extensive past medical history as outlined below who presented to [facility] Emergency room due to complaints of shortness of breath. The patient has some degree of chronic shortness of breath at baseline secondary to her COPD but she reports that this has worsened over the past 7-10 days. She states that she has been using her albuterol inhaler at least three to 4 times a day without any significant benefit. Furthermore, over the past five days, she has no state increasing lower extremity edema as well as increase in her weight of about 15 lb based on her assessment. She reports compliant with her medications as well as diet. She denies any paroxysmal nocturnal dyspnea or orthopnea but does report increased shortness of breath with exertional activities. Given these constellation of s
--- NOTE | 2022-04-19 13:17 | PM.CNNEP ---
Assessment and Plan Assessment and plan (1) ANNEMARIE (acute kidney injury): Code(s): N17.9 - Acute kidney failure, unspecified Status: Acute Assessment and Plan: due to CHF exacerbation (?) creatinine better after IV diuretics (element of renal venous HTN?) follow trend of renal function with IV bumex check renal ultrasound and urine eosinophils hold off on urine electrolytes given need for diuretics (2) Stage 3b chronic kidney disease: Code(s): N18.32 - Chronic kidney disease, stage 3b Status: Chronic Assessment and Plan: baseline creatinine seems to run 1.4 - 1.7mg/dl likely secondary to DM, HTN, and vascular disease (CAD + hyperlipidemia + CVA + CHF...etc) (3) Acute and chronic respiratory failure: Code(s): J96.20 - Acute and chronic respiratory failure, unspecified whether with hypoxia or hypercapnia Status: Acute Assessment and Plan: as noted by presentation symptoms of tachypnea/retractions presumably related to her COPD and CHF treatment as noted (see #4 and #5) (4) CHF exacerbation: Qualifiers: Heart failure type: unspecified Qualified Code(s): I50.9 - Heart failure, unspecified Code(s): I50.9 - Heart failure, unspecified Status: Acute Assessment and Plan: as noted by dyspnea, LE edema, elevated BNP, and increase in weight (despite negative CXR) suspect acute on chronic diastolic heart failure based on last Echo renal function tolerating IV diuretics at this time prehaps a component of renal venous HTN which is being treated with diuretic therapy follow I/Os, daily weights, and respiratory status (5) COPD (chronic obstructive pulmonary disease): Code(s): J44.9 - Chronic obstructive pulmonary disease, unspecified Status: Acute Assessment and Plan: some wheezing noted on presentation related to COPD versus CHF continue inhalers and steroids nebulizer treatments as needed (6) History of atrial fibrillation: Code(s): Z86.79 - Personal history of other diseases of the circulatory system Status: Acute Assessment and Plan: rate control strategy on anticoagulation (7) Diabetes: Code(s): E11.9 - Type 2 diabetes mellitus without complications Status: Chronic Assessment and Plan: follow accuchecks glycemic control per hospitalists Will continue to follow. History of Present Illness Reason for Consult Consult date: 04/19/22 Reason for consult: acute renal failure (on chronic kidney disease) Chief Complaint Chief complaint: CHF,supratherapeutic INR, acute on CKD,dyspnea History of Present Illness Narrative: The patient is a 61-year-old female with extensive past medical history as outlined below who presented to [facility] Emergency room due to complaints of shortness of breath. The patient has some degree of chronic shortness of breath at baseline secondary to her COPD but she reports that this has worsened over the past 7-10 days. She states that she has been using her albuterol inhaler at least three to 4 times a day without any significant benefit. Furthermore, over the past five days, she has no state increasing lower extremity edema as well as increase in her weight of about 15 lb based on her assessment. She reports compliant with her medications as well as diet. She denies any paroxysmal nocturnal dyspnea or orthopnea but does report increased shortness of breath with exertional activities. Given these constellation of symptoms, she presented to the emergency room for further assessment. Workup and evaluation the emergency room demonstrated the patient to be hemodynamically stable but in mild respiratory distress. Routine blood test were significant for an elevated BNP, mildly elevated BUN and creatinine above her baseline, and a negative chest x-ray. However, given her increase in weight in association with shortness of angelina
[2022-04-19] MEDS: MORPHINE SULFATE (*CRX) 2 MG/ML INJ IV PUSH ×2 (14:18→20:00)
[2022-04-19 16:33] LABS: Glucose Point of Care 209 mg/dl (65-105)
[2022-04-19] MEDS: SUCRALFATE 1 GM TABLET PO ×2 (17:00→21:11)
[2022-04-19] MEDS: HYDROcodone/acetaminophen (*CRX) 5-325 MG TABLET 1 TAB PO ×2 (17:00→23:37)
[2022-04-19] MEDS: INSULIN ASPART (*BKC) 100 UNITS/ML SUB-Q (17:01)
[2022-04-19] MEDS: FLUTICASONE/SALMETEROL 115-21 MCG INHALER 1 PUFF 2 PUFF INHALATION (20:57)
[2022-04-19] MEDS: amLODIPine BESYLATE 5 MG TABLET 10 MG PO (21:10)
[2022-04-19] MEDS: POTASSIUM CHLORIDE 20 MEQ TABLET.ER 10 MEQ PO (21:10)
[2022-04-19] MEDS: MELATONIN 3 MG TABLET PO (21:13)
[2022-04-19 21:29] LABS: Glucose Point of Care 255 mg/dl (65-105)
[2022-04-20] VITALS (8 sets, daily range): BP systolic 133–154; BP diastolic 84–93; PULSE 77–94; RESP 14–20; TEMP 36.2; O2SAT 91–97
[2022-04-20 05:46] LABS: Alveolar/Arterial O2 Gradient 144.3 mmHg; Base Excess ABG -0.3 mEq/l (+/-2.0); Fractional Inspired Oxygen 36 %; HCO3 ABG 23.2 mEq/l (22.0-26.0); Oxygen Content ABG 19.7 %vol (16.0-22.0); Oxygen Saturation ABG 95.1 % (95.0-100.0); Oxyhemoglobin 93.6 % THb (90.0-100.0); PO2 ABG 71.8 mmHg (80.0-100.0); PO2 FiO2 Ratio Arterial Blood 1.99 %
[2022-04-20 05:47] LABS: Device NASAL CANNULA; Site Drawn RIGHT BRACHIAL
[2022-04-20 08:14] LABS: Glucose Point of Care 137 mg/dl (65-105)
[2022-04-20 08:15] LABS: INR 4.5; Prothrombin Time 41.4 Seconds (11.1-14.7)
[2022-04-20 08:19] LABS: Albumin Level 3.7 g/dL (3.5-5.1); Anion Gap 5 mmol/L (8-16); Blood Urea Nitrogen 54 mg/dL (7-17); Calcium 8.7 mg/dL (8.4-10.2); Carbon Dioxide 30 mmol/L (22-30); Chloride 102 mmol/L (98-107); Estimated CRCL calculation 31 ml/min; Estimated Glomerular Filt Rate 27; Glucose 141 mg/dL (65-110); Magnesium 2.2 mg/dL (1.6-2.3); Phosphorus 3.3 mg/dL (2.5-4.5); Potassium 3.7 mmol/L (3.4-5.0); Sodium 137 mmol/L (137-145)
[2022-04-20 08:20] LABS: Basophils Absolute Auto 0.1 K/mm3 (0.0-0.1); Basophils Percent Auto 0.5 % (0.2-1.2); Eosinophils Absolute Auto 0.2 K/mm3 (0-0.3); Eosinophils Percent Auto 1.7 % (0-4.4); Hematocrit 47.1 % (37.0-47.0); Hemoglobin 14.1 g/dL (12.0-15.0); Immature Granulocyte Absolute 0.08 K/mm3 (0.00-0.031); Immature Granulocyte Percent A 0.7 % (0-0.5); Lymphocytes Absolute Auto 0.86 K/mm3 (0.9-3.2); Mean Corpuscular HGB Conc 29.9 g/dl (32-36); Mean Corpuscular Hemoglobin 27.4 pg (26-34); Mean Corpuscular Volume 91.6 fl (80-100); Mean Platelet Volume 10.4 fl (7.4-10.4); Monocytes Absolute Auto 0.9 K/mm3 (0.1-0.6); Monocytes Percent Auto 8.7 % (2.6-8.5); Neutrophils Absolute Auto 8.7 K/mm3 (1.3-6.7); Neutrophils Percent Auto 80.4 % (45.5-73.1); Platelet Count Result 155 k/mm3 (150-375); Red Blood Count 5.14 M/mm3 (4.2-5.4); Red Cell Distribution Width 16.1 % (11.5-14.5); White Blood Count 10.8 K/mm3 (4.5-10.0)
[2022-04-20] MEDS: UMECLIDINIUM BROMIDE 62.5 MCG ELLIPTA 1 PUFF INHALATION (08:25)
[2022-04-20] MEDS: FLUTICASONE/SALMETEROL 115-21 MCG INHALER 1 PUFF 2 PUFF INHALATION ×2 (08:26→20:50)
[2022-04-20] MEDS: BUMETANIDE INJ 1 MG/4 ML VIAL IV PUSH ×2 (08:53→18:27)
[2022-04-20] MEDS: predniSONE 10 MG TABLET PO (08:53)
[2022-04-20] MEDS: HYDROcodone/acetaminophen (*CRX) 5-325 MG TABLET 1 TAB PO (08:54)
[2022-04-20] MEDS: PANTOPRAZOLE 40 MG TABLET PO ×2 (08:54→21:40)
[2022-04-20] MEDS: FERROUS SULFATE 324 MG TABLET PO (08:54)
[2022-04-20] MEDS: SUCRALFATE 1 GM TABLET PO ×4 (08:54→21:40)
[2022-04-20] MEDS: busPIRone HCL 10 MG TABLET PO ×3 (08:55→18:26)
[2022-04-20] MEDS: METOPROLOL TARTRATE 50 MG TAB PO ×2 (08:55→21:40)
[2022-04-20] MEDS: ATORVASTATIN 40 MG TABLET PO (08:55)
[2022-04-20] MEDS: ASPIRIN 81 MG ENTERIC TABLET PO (08:56)
[2022-04-20] MEDS: SPIRONOLACTONE 25 MG TABLET PO (08:56)
[2022-04-20] MEDS: SERTRALINE HCL 50 MG TABLET PO (08:56)
[2022-04-20] MEDS: INSULIN GLARGINE (*BKC) 100 UNITS/ML 30 UNITS SUB-Q (08:57)
[2022-04-20 09:54] LABS: Hypochromasia 1+ (NORMAL); Platelet Estimate Adequate (Adequate); Schistocytes None Seen (NORMAL)
--- NOTE | 2022-04-20 11:35 | PM.PNNEP ---
Progress Note: A&P Assessment and Plan (1) ANNEMARIE (acute kidney injury): Code(s): N17.9 - Acute kidney failure, unspecified Status: Acute Assessment and Plan: due to CHF exacerbation (?) creatinine better after IV diuretics (element of renal venous HTN?) follow trend of renal function with IV bumex follow-up on renal ultrasound and urine eosinophils (2) Stage 3b chronic kidney disease: Code(s): N18.32 - Chronic kidney disease, stage 3b Status: Chronic Assessment and Plan: baseline creatinine seems to run 1.4 - 1.7mg/dl likely secondary to DM, HTN, and vascular disease (CAD + hyperlipidemia + CVA + CHF...etc) (3) Acute and chronic respiratory failure: Code(s): J96.20 - Acute and chronic respiratory failure, unspecified whether with hypoxia or hypercapnia Status: Acute Assessment and Plan: as noted by presentation symptoms of tachypnea/retractions presumably related to her COPD and CHF treatment as noted (see #4 and #5) (4) CHF exacerbation: Qualifiers: Heart failure type: unspecified Qualified Code(s): I50.9 - Heart failure, unspecified Code(s): I50.9 - Heart failure, unspecified Status: Acute Assessment and Plan: as noted by dyspnea, LE edema, elevated BNP, and increase in weight (despite negative CXR) suspect acute on chronic diastolic heart failure based on last Echo renal function tolerating IV diuretics at this time prehaps a component of renal venous HTN which is being treated with diuretic therapy follow I/Os, daily weights, and respiratory status (5) COPD (chronic obstructive pulmonary disease): Code(s): J44.9 - Chronic obstructive pulmonary disease, unspecified Status: Acute Assessment and Plan: some wheezing noted on presentation related to COPD versus CHF continue inhalers and steroids nebulizer treatments as needed (6) History of atrial fibrillation: Code(s): Z86.79 - Personal history of other diseases of the circulatory system Status: Acute Assessment and Plan: rate control strategy on anticoagulation (7) Diabetes: Code(s): E11.9 - Type 2 diabetes mellitus without complications Status: Chronic Assessment and Plan: follow accuchecks glycemic control per hospitalists Will continue to follow. Subjective Date/time seen: 04/20/22 11:35 No new issues or problems voiced at the time of my visit other than bilateral leg pain yesterday -- renal function/creatinine tolerating IV diuresis with improvement noted; making urine (but difficult to assess based on I/Os) however, edema as well as breathing seems to be doing better. Exam Narrative: General: WD/WN female in NAD Heart: normal S1 and S2; no rub Lungs: bibasilar crackles noted Abdomen: soft, nontender, nondistended, positive bowel sounds Extremities: no cyanosis or clubbing; 1 - 2+ edema Skin: warm and dry Objective Data Vital Signs Vital Signs: Vital Signs Temp Pulse Resp BP Pulse Ox O2 Del Method O2 Flow Rate 04/20/22 08:55 94 04/20/22 08:27 93 Nasal Cannula 4 04/20/22 06:00 97.2 F L 88 14 148/93 H 92 04/19/22 22:00 97.4 F L 90 18 136/79 98 04/19/22 21:09 90 04/19/22 21:01 96 Nasal Cannula 4 04/19/22 14:00 97.6 F 93 22 H 151/97 H 97 04/19/22 13:35 95 Nasal Cannula 4 Intake/Output Intake/Output: Intake & Output 04/17/22 04/18/22 04/19/22 04/20/22 23:59 23:59 23:59 23:59 Intake Total 1804 550 Balance 1804 550 Meds/Results Medications: Active Medications Generic Name Dose Route Start Last Admin Trade Name Freq PRN Reason Stop Dose Admin Acetaminophen 650 mg 04/19/22 11:23 Acetaminophen 325 Mg Tablet PO Q6H PRN Mild Pain (1-3) or Fever Hydrocodone Bitart/Acetaminophen 1 tab 04/19/22 11:23 04/20/22 08:54 Hydrocodone/Acetaminophen (*Crx) 5-32
--- NOTE | 2022-04-20 11:35 | P.PNNP_ITS ---
Progress Note: A&P Assessment and Plan (1) ANNEMARIE (acute kidney injury): Code(s): N17.9 - Acute kidney failure, unspecified Status: Acute Assessment and Plan: * due to CHF exacerbation (?) * creatinine better after IV diuretics (element of renal venous HTN?) * follow trend of renal function with IV bumex * follow-up on renal ultrasound and urine eosinophils (2) Stage 3b chronic kidney disease: Code(s): N18.32 - Chronic kidney disease, stage 3b Status: Chronic Assessment and Plan: * baseline creatinine seems to run 1.4 - 1.7mg/dl * likely secondary to DM, HTN, and vascular disease (CAD + hyperlipidemia + CVA + CHF...etc) (3) Acute and chronic respiratory failure: Code(s): J96.20 - Acute and chronic respiratory failure, unspecified whether with hypoxia or hypercapnia Status: Acute Assessment and Plan: * as noted by presentation symptoms of tachypnea/retractions * presumably related to her COPD and CHF * treatment as noted (see #4 and #5) (4) CHF exacerbation: Qualifiers: Heart failure type: unspecified Qualified Code(s): I50.9 - Heart failure, unspecified Code(s): I50.9 - Heart failure, unspecified Status: Acute Assessment and Plan: * as noted by dyspnea, LE edema, elevated BNP, and increase in weight (despite negative CXR) * suspect acute on chronic diastolic heart failure based on last Echo * renal function tolerating IV diuretics at this time * prehaps a component of renal venous HTN which is being treated with diuretic therapy * follow I/Os, daily weights, and respiratory status (5) COPD (chronic obstructive pulmonary disease): Code(s): J44.9 - Chronic obstructive pulmonary disease, unspecified Status: Acute Assessment and Plan: * some wheezing noted on presentation * related to COPD versus CHF * continue inhalers and steroids * nebulizer treatments as needed (6) History of atrial fibrillation: Code(s): Z86.79 - Personal history of other diseases of the circulatory system Status: Acute Assessment and Plan: * rate control strategy * on anticoagulation (7) Diabetes: Code(s): E11.9 - Type 2 diabetes mellitus without complications Status: Chronic Assessment and Plan: * follow accuchecks * glycemic control per hospitalists Will continue to follow. Subjective Date/time seen: 04/20/22 11:35 No new issues or problems voiced at the time of my visit other than bilateral leg pain yesterday -- renal function/creatinine tolerating IV diuresis with improvement noted; making urine (but difficult to assess based on I/Os) however, edema as well as breathing seems to be doing better. Exam Narrative: General: WD/WN female in NAD Heart: normal S1 and S2; no rub Lungs: bibasilar crackles noted Abdomen: soft, nontender, nondistended, positive bowel sounds Extremities: no cyanosis or clubbing; 1 - 2+ edema Skin: warm and dry Objective Data Vital Signs Vital Signs: Vital Signs Temp Pulse Resp BP Pulse Ox O2 Del Method O2 Flow Rate 04/20/22 08:55 94 04/20/22 08:27 93 Nasal Cannula 4 04/20/22 06:00 97.2 F L 88 14 148/93 H 92 04/19/22 22:00 97.4 F L 90 18 136/79 98 04/19/22 21:09 90 04/19/22 21:01 96 Nasal Cannula 4 04/19/22 14:00
[2022-04-20 11:59] LABS: Hemoglobin A1C 8.2 % (<5.7)
[2022-04-20 12:11] LABS: Glucose Point of Care 325 mg/dl (65-105)
[2022-04-20] MEDS: INSULIN ASPART (*BKC) 100 UNITS/ML 10 UNITS SUB-Q ×2 (12:51→18:20)
[2022-04-20] MEDS: INSULIN ASPART (*BKC) 100 UNITS/ML SUB-Q ×2 (12:52→18:20)
[2022-04-20 13:39] LABS: Eosinophil Urine None Seen % (None Seen); Urine Eos QC 2nd Tech Confirmed
--- NOTE | 2022-04-20 15:33 | PM.IMPN ---
Progress Note: A&P Assessment and Plan (1) Acute and chronic respiratory failure: Code(s): J96.20 - Acute and chronic respiratory failure, unspecified whether with hypoxia or hypercapnia Status: Acute Assessment and Plan: Patient developed respiratory difficulty related to pain yesterday morning with tachypnea, retractions. Able to control her symptoms. Pain management regiment started with improvement. Will follow. She is stable on her 4L. (2) Acute on chronic renal failure: Qualifiers: Acute renal failure type: unspecified Code(s): N17.9 - Acute kidney failure, unspecified; N18.9 - Chronic kidney disease, unspecified Status: Acute Assessment and Plan: Patient with baseline Cr 1.4-1.7 range. Cr 2.2 on admission. She was started on Bumex and she is tolerating this well. Cr better at 1.9. Continue Bumenx. Appreciated nephrology input. (3) CHF exacerbation: Qualifiers: Heart failure type: unspecified Qualified Code(s): I50.9 - Heart failure, unspecified Code(s): I50.9 - Heart failure, unspecified Status: Acute Assessment and Plan: Patient presents with SOB, increasing pedal edema and weight gain. CXR showing atelectasis and CMG. CXR may not be accurate for CHF findings since she has COPD. BNP was 5260. Echo in 2020 showing EF 70%, Grade II diastolic dysfunction, bioprosthetic mitral valve and mild pHTN (she follows with Cardiology so probably has more recent Echo). Patient with acute on chronic diastolic CHF. Tolerating IV Bumex Cr trending down and clinically improved. I/O inaccurate and weight has gone up 4#. Continue Bumex IV and monitor Cr closely. Continue Spironolactone. (4) COPD (chronic obstructive pulmonary disease): Code(s): J44.9 - Chronic obstructive pulmonary disease, unspecified Status: Acute Assessment and Plan: Patient with steroid-dependent COPD. Scattered wheezing either COPD exacerbation or 'cardiac' wheezing from the pulmonary edema; symptoms better so favor the latter. Continue Advair. Continue Albuterol prn (5) History of atrial fibrillation: Code(s): Z86.79 - Personal history of other diseases of the circulatory system Status: Acute Assessment and Plan: On anticoagulation for pAFib. EKG reviewed showing normal sinus rhythm. Continue metoprolol. INR was 5.1 on admission and better today. Hgb normal. No evidence of acute blood loss. Continue to hold coumadin. Follow INR daily. Consider changing to Eliquis. (6) Supratherapeutic INR: Code(s): R79.1 - Abnormal coagulation profile Status: Acute Assessment and Plan: As above (7) Diabetes: Code(s): E11.9 - Type 2 diabetes mellitus without complications Status: Chronic Assessment and Plan: A1c 8.2. The patient's blood glucose was reviewed on 04/20 Glucose was 137 this morning but up to 300 prior to lunch. On renal diet; add diabetic diet. Continue AccuCheks covering with sliding scale. Hypoglycemia protocol available as needed. Lantus resumed but decrease by 03/18. Patient with diabetic neuropathy that results in severe pain. Unclear why this occurred here for why so severe. She had giorgi on her medications since admission. Pain better controlled. Continue pain management to control pain. (8) Lymphadenopathy: Code(s): R59.1 - Generalized enlarged lymph nodes Status: Acute Assessment and Plan: She has fullness in the supraclavicular area. CT chest in 02/2021 showing left supraclavicular lymphadenopathy. CT of the neck and chest here continues to show lymphadenopathy but no change and felt to be a benign finding. Subjective Date/time seen: 04/20/22 15:33 Interval history: 61yo female with CHF, COPD and chronic respiratory failure here for SOB.? She is on chronic prednisone at home. Rough day yesterday due to bilateral leg pain. This is chronic and she does have fla
[2022-04-20 16:32] LABS: Glucose Point of Care 240 mg/dl (65-105)
[2022-04-20] MEDS: amLODIPine BESYLATE 5 MG TABLET 10 MG PO (21:39)
[2022-04-20] MEDS: MELATONIN 3 MG TABLET PO (21:40)
[2022-04-20] MEDS: POTASSIUM CHLORIDE 20 MEQ TABLET.ER 10 MEQ PO (21:40)
[2022-04-20] MEDS: GABAPENTIN 300 MG CAPSULE PO (21:40)
[2022-04-20 21:45] LABS: Glucose Point of Care 360 mg/dl (65-105)
[2022-04-20] MEDS: MORPHINE SULFATE (*CRX) 2 MG/ML INJ IV PUSH (21:46)
[2022-04-21] VITALS (8 sets, daily range): BP systolic 127–143; BP diastolic 81–88; PULSE 75–86; RESP 12–18; TEMP 35.8–36.7; O2SAT 98–100
[2022-04-21 06:36] LABS: Basophils Absolute Auto 0.1 K/mm3 (0.0-0.1); Basophils Percent Auto 0.6 % (0.2-1.2); Eosinophils Absolute Auto 0.2 K/mm3 (0-0.3); Hematocrit 45.8 % (37.0-47.0); Hemoglobin 13.6 g/dL (12.0-15.0); Immature Granulocyte Absolute 0.07 K/mm3 (0.00-0.031); Immature Granulocyte Percent A 0.7 % (0-0.5); Lymphocytes Absolute Auto 0.94 K/mm3 (0.9-3.2); Lymphocytes Percent Auto 9.2 % (18.3-44.2); Mean Corpuscular HGB Conc 29.7 g/dl (32-36); Mean Corpuscular Hemoglobin 27.6 pg (26-34); Mean Corpuscular Volume 93.1 fl (80-100); Mean Platelet Volume 10.3 fl (7.4-10.4); Monocytes Percent Auto 9.6 % (2.6-8.5); Neutrophils Percent Auto 77.9 % (45.5-73.1); Platelet Count Result 148 k/mm3 (150-375); Red Blood Count 4.92 M/mm3 (4.2-5.4); Red Cell Distribution Width 15.9 % (11.5-14.5); White Blood Count 10.3 K/mm3 (4.5-10.0)
[2022-04-21 06:42] LABS: INR 2.8; Prothrombin Time 28.2 Seconds (11.1-14.7)
[2022-04-21 06:53] LABS: Albumin Level 3.6 g/dL (3.5-5.1); Anion Gap 3 mmol/L (8-16); Blood Urea Nitrogen 54 mg/dL (7-17); Calcium 8.9 mg/dL (8.4-10.2); Carbon Dioxide 32 mmol/L (22-30); Chloride 102 mmol/L (98-107); Creatine Kinase 23 U/L (30-135); Estimated CRCL calculation 31 ml/min; Estimated Glomerular Filt Rate 27; Glucose 141 mg/dL (65-110); Magnesium 2.2 mg/dL (1.6-2.3); Phosphorus 3.6 mg/dL (2.5-4.5); Potassium 4.2 mmol/L (3.4-5.0); Sodium 137 mmol/L (137-145)
[2022-04-21 08:03] LABS: Glucose Point of Care 150 mg/dl (65-105)
[2022-04-21] MEDS: UMECLIDINIUM BROMIDE 62.5 MCG ELLIPTA 1 PUFF INHALATION (08:38)
[2022-04-21] MEDS: FLUTICASONE/SALMETEROL 115-21 MCG INHALER 1 PUFF 2 PUFF INHALATION (08:38)
[2022-04-21] MEDS: SPIRONOLACTONE 25 MG TABLET PO (08:53)
[2022-04-21] MEDS: busPIRone HCL 10 MG TABLET PO ×3 (08:53→16:47)
[2022-04-21] MEDS: PANTOPRAZOLE 40 MG TABLET PO ×2 (08:53→20:42)
[2022-04-21] MEDS: SUCRALFATE 1 GM TABLET PO ×4 (08:53→20:42)
[2022-04-21] MEDS: FERROUS SULFATE 324 MG TABLET PO (08:53)
[2022-04-21] MEDS: HYDROcodone/acetaminophen (*CRX) 5-325 MG TABLET 1 TAB PO ×2 (08:53→23:24)
[2022-04-21] MEDS: predniSONE 10 MG TABLET PO (08:53)
[2022-04-21] MEDS: ATORVASTATIN 40 MG TABLET PO (08:53)
[2022-04-21] MEDS: SERTRALINE HCL 50 MG TABLET PO (08:53)
[2022-04-21] MEDS: INSULIN ASPART (*BKC) 100 UNITS/ML 10 UNITS SUB-Q ×3 (08:54→16:47)
[2022-04-21] MEDS: BUMETANIDE INJ 1 MG/4 ML VIAL IV PUSH ×2 (08:54→16:47)
[2022-04-21] MEDS: ASPIRIN 81 MG ENTERIC TABLET PO (08:54)
[2022-04-21] MEDS: METOPROLOL TARTRATE 50 MG TAB PO ×2 (08:54→20:42)
[2022-04-21] MEDS: INSULIN GLARGINE (*BKC) 100 UNITS/ML 30 UNITS SUB-Q (08:55)
--- NOTE | 2022-04-21 09:04 | PM.IMPN ---
Progress Note: A&P Assessment and Plan (1) Acute and chronic respiratory failure: Code(s): J96.20 - Acute and chronic respiratory failure, unspecified whether with hypoxia or hypercapnia Status: Acute Assessment and Plan: Patient developed respiratory difficulty related to pain with tachypnea, retractions. Able to control her symptoms. Pain management regiment started with improvement. She remains stable on her home 4 L oxygen. Continue to follow. (2) Acute on chronic renal failure: Qualifiers: Acute renal failure type: unspecified Code(s): N17.9 - Acute kidney failure, unspecified; N18.9 - Chronic kidney disease, unspecified Status: Acute Assessment and Plan: Patient with baseline Cr 1.4-1.7 range. Cr 2.2 on admission. She was started on Bumex and she is tolerating this well. Cr better at 1.9 and stable. Continue Bumex. Appreciated nephrology input. (3) CHF exacerbation: Qualifiers: Heart failure type: unspecified Qualified Code(s): I50.9 - Heart failure, unspecified Code(s): I50.9 - Heart failure, unspecified Status: Acute Assessment and Plan: Patient presents with SOB, increasing pedal edema and weight gain. CXR showing atelectasis and CMG. CXR may not be accurate for CHF findings since she has COPD. BNP was 5260. Echo in 2020 showing EF 70%, Grade II diastolic dysfunction, bioprosthetic mitral valve and mild pHTN (she follows with Cardiology so probably has more recent Echo). Patient with acute on chronic diastolic CHF. Tolerating IV Bumex. Cr trending down and clinically improved. I/O inaccurate. Weight has gone down since yesterday. Stable on her 4L and she feels better. Continue Bumex IV and monitor Cr closely. Continue Spironolactone. Change to oral Bumex in the morning. (4) COPD (chronic obstructive pulmonary disease): Code(s): J44.9 - Chronic obstructive pulmonary disease, unspecified Status: Acute Assessment and Plan: Patient with steroid-dependent COPD. Scattered wheezing either COPD exacerbation or 'cardiac' wheezing from the pulmonary edema; symptoms better so favor the latter. Stable on her chronic 4L O2. Continue Advair. Continue Albuterol prn (5) History of atrial fibrillation: Code(s): Z86.79 - Personal history of other diseases of the circulatory system Status: Acute Assessment and Plan: On anticoagulation for pAFib and for bioprosthetic MV. EKG reviewed showing normal sinus rhythm. Continue metoprolol. INR was 5.1 on admission and better today. Hgb normal. No evidence of acute blood loss. Resume Coumadin. Follow INR daily. Discussed with Cardiology. Plan for home health for INR checks. (6) Supratherapeutic INR: Code(s): R79.1 - Abnormal coagulation profile Status: Acute Assessment and Plan: As above (7) Diabetes: Code(s): E11.9 - Type 2 diabetes mellitus without complications Status: Chronic Assessment and Plan: A1c 8.2. The patient's blood glucose was reviewed on 04/21 Glucose was 141 this morning. Continue diabetic diet. Continue AccuCheks covering with sliding scale. Hypoglycemia protocol available as needed. Meal time insulin resumed on admission. Lantus was resumed on admission but decrease dose by a 1/3. Advance Lantus slightly. Patient with diabetic neuropathy that results in severe bilateral LE pain. We have continued her medications since admission. Pain better controlled. Continue current pain management to control pain. (8) Lymphadenopathy: Code(s): R59.1 - Generalized enlarged lymph nodes Status: Acute Assessment and Plan: She has fullness in the supraclavicular area. CT chest in 02/2021 showing left supraclavicular lymphadenopathy. CT of the neck and chest this admission continues to show lymphadenopathy but no change and felt to be a benign finding. Plan Possible discharge tomorrow. [place]
[2022-04-21 11:31] LABS: Glucose Point of Care 208 mg/dl (65-105)
--- NOTE | 2022-04-21 11:34 | P.PNNP_ITS ---
Progress Note: A&P Assessment and Plan (1) ANNEMARIE (acute kidney injury): Code(s): N17.9 - Acute kidney failure, unspecified Status: Acute Assessment and Plan: * due to CHF exacerbation (?) * creatinine better after IV diuretics (element of renal venous HTN?) * follow trend of renal function with IV bumex * follow-up on renal ultrasound and urine eosinophils (2) Stage 3b chronic kidney disease: Code(s): N18.32 - Chronic kidney disease, stage 3b Status: Chronic Assessment and Plan: * baseline creatinine seems to run 1.4 - 1.7mg/dl * likely secondary to DM, HTN, and vascular disease (CAD + hyperlipidemia + CVA + CHF...etc) (3) Acute and chronic respiratory failure: Code(s): J96.20 - Acute and chronic respiratory failure, unspecified whether with hypoxia or hypercapnia Status: Acute Assessment and Plan: * as noted by presentation symptoms of tachypnea/retractions * presumably related to her COPD and CHF * treatment as noted (see #4 and #5) (4) CHF exacerbation: Qualifiers: Heart failure type: unspecified Qualified Code(s): I50.9 - Heart failure, unspecified Code(s): I50.9 - Heart failure, unspecified Status: Acute Assessment and Plan: * as noted by dyspnea, LE edema, elevated BNP, and increase in weight (despite negative CXR) * suspect acute on chronic diastolic heart failure based on last Echo * renal function tolerating IV diuretics at this time * prehaps a component of renal venous HTN which is being treated with diuretic therapy * follow I/Os, daily weights, and respiratory status (5) COPD (chronic obstructive pulmonary disease): Code(s): J44.9 - Chronic obstructive pulmonary disease, unspecified Status: Acute Assessment and Plan: * some wheezing noted on presentation * related to COPD versus CHF * continue inhalers and steroids * nebulizer treatments as needed (6) History of atrial fibrillation: Code(s): Z86.79 - Personal history of other diseases of the circulatory system Status: Acute Assessment and Plan: * rate control strategy * on anticoagulation (7) Diabetes: Code(s): E11.9 - Type 2 diabetes mellitus without complications Status: Chronic Assessment and Plan: * follow accuchecks * glycemic control per hospitalists Will continue to follow. Subjective Date/time seen: 04/21/22 11:34 She feels her breathing as well as her lower extremity edema are improving with current therapy; still has bilateral leg pain but that is a chronic issue; improvement in renal function noted in spite of IV diuresis. Exam Narrative: General: WD/WN female in NAD Heart: normal S1 and S2; no rub Lungs: decreased at the bases Abdomen: soft, nontender, nondistended, positive bowel sounds Extremities: no cyanosis or clubbing; 1+ edema Skin: warm and intact Objective Data Vital Signs Vital Signs: Vital Signs Temp Pulse Resp BP Pulse Ox O2 Del Method O2 Flow Rate 04/21/22 08:00 100 Nasal Cannula 4 04/21/22 08:54 76 04/21/22 08:41 18 04/21/22 06:00 96.5 F L 82 14 143/88 H 100 04/20/22 22:00 97.2 F L 86 14 154/92 H 97 04/20/22 21:40 80 04/20/22 20:50 80 18 04/20/22 14:00 97.2 F L 77 20 133/84 94
--- NOTE | 2022-04-21 11:34 | PM.PNNEP ---
Progress Note: A&P Assessment and Plan (1) ANNEMARIE (acute kidney injury): Code(s): N17.9 - Acute kidney failure, unspecified Status: Acute Assessment and Plan: due to CHF exacerbation (?) creatinine better after IV diuretics (element of renal venous HTN?) follow trend of renal function with IV bumex follow-up on renal ultrasound and urine eosinophils (2) Stage 3b chronic kidney disease: Code(s): N18.32 - Chronic kidney disease, stage 3b Status: Chronic Assessment and Plan: baseline creatinine seems to run 1.4 - 1.7mg/dl likely secondary to DM, HTN, and vascular disease (CAD + hyperlipidemia + CVA + CHF...etc) (3) Acute and chronic respiratory failure: Code(s): J96.20 - Acute and chronic respiratory failure, unspecified whether with hypoxia or hypercapnia Status: Acute Assessment and Plan: as noted by presentation symptoms of tachypnea/retractions presumably related to her COPD and CHF treatment as noted (see #4 and #5) (4) CHF exacerbation: Qualifiers: Heart failure type: unspecified Qualified Code(s): I50.9 - Heart failure, unspecified Code(s): I50.9 - Heart failure, unspecified Status: Acute Assessment and Plan: as noted by dyspnea, LE edema, elevated BNP, and increase in weight (despite negative CXR) suspect acute on chronic diastolic heart failure based on last Echo renal function tolerating IV diuretics at this time prehaps a component of renal venous HTN which is being treated with diuretic therapy follow I/Os, daily weights, and respiratory status (5) COPD (chronic obstructive pulmonary disease): Code(s): J44.9 - Chronic obstructive pulmonary disease, unspecified Status: Acute Assessment and Plan: some wheezing noted on presentation related to COPD versus CHF continue inhalers and steroids nebulizer treatments as needed (6) History of atrial fibrillation: Code(s): Z86.79 - Personal history of other diseases of the circulatory system Status: Acute Assessment and Plan: rate control strategy on anticoagulation (7) Diabetes: Code(s): E11.9 - Type 2 diabetes mellitus without complications Status: Chronic Assessment and Plan: follow accuchecks glycemic control per hospitalists Will continue to follow. Subjective Date/time seen: 04/21/22 11:34 She feels her breathing as well as her lower extremity edema are improving with current therapy; still has bilateral leg pain but that is a chronic issue; improvement in renal function noted in spite of IV diuresis. Exam Narrative: General: WD/WN female in NAD Heart: normal S1 and S2; no rub Lungs: decreased at the bases Abdomen: soft, nontender, nondistended, positive bowel sounds Extremities: no cyanosis or clubbing; 1+ edema Skin: warm and intact Objective Data Vital Signs Vital Signs: Vital Signs Temp Pulse Resp BP Pulse Ox O2 Del Method O2 Flow Rate 04/21/22 08:00 100 Nasal Cannula 4 04/21/22 08:54 76 04/21/22 08:41 18 04/21/22 06:00 96.5 F L 82 14 143/88 H 100 04/20/22 22:00 97.2 F L 86 14 154/92 H 97 04/20/22 21:40 80 04/20/22 20:50 80 18 04/20/22 14:00 97.2 F L 77 20 133/84 94 Intake/Output Intake/Output: Intake & Output 04/18/22 04/19/22 04/20/22 04/21/22 23:59 23:59 23:59 23:59 Intake Total 1804 1510 668 Output Total 800 2000 Balance 1804 710 -1332 Meds/Results Medications: Active Medications Generic Name Dose Route Start Last Admin Trade Name Freq PRN Reason Stop Dose Admin Acetaminophen 650 mg 04/19/22 11:23 Acetaminophen 325 Mg Tablet PO Q6H PRN Mild Pain (1-3) or Fever Hydrocodone Bitart/Acetaminophen 1 tab 04/19/22 11:23 04/21/22 08:53 Hydrocodone/Acetaminophen (*Crx) 5-325 Mg Tablet PO 1 tab Q6H PRN Administration Pain Rated 4-6
[2022-04-21] MEDS: INSULIN ASPART (*BKC) 100 UNITS/ML SUB-Q (11:58)
[2022-04-21] MEDS: WARFARIN (*PBKC) 2 MG TABLET PO (11:59)
[2022-04-21 14:23] LABS: Glucose Point of Care 191 mg/dl (65-105)
[2022-04-21 16:20] LABS: Glucose Point of Care 155 mg/dl (65-105)
[2022-04-21] MEDS: WARFARIN (*PBKC) 4 MG TABLET PO (18:09)
[2022-04-21 20:08] LABS: Glucose Point of Care 320 mg/dl (65-105)
[2022-04-21] MEDS: GABAPENTIN 300 MG CAPSULE PO (20:41)
[2022-04-21] MEDS: POTASSIUM CHLORIDE 20 MEQ TABLET.ER 10 MEQ PO (20:41)
[2022-04-21] MEDS: amLODIPine BESYLATE 5 MG TABLET 10 MG PO (20:42)
[2022-04-21] MEDS: MELATONIN 3 MG TABLET PO (20:42)
[2022-04-21] MEDS: INSULIN ASPART (*BKC) 100 UNITS/ML 6 UNITS SUB-Q (20:53)
[2022-04-21] MEDS: CYCLOBENZAPRINE HCL 5 MG TABLET PO (21:29)
[2022-04-22 06:00] VITALS: BP 129/74; PULSE 73; RESP 14; TEMP 36.1; O2SAT 100
[2022-04-22 06:43] LABS: Anion Gap 3 mmol/L (8-16); Blood Urea Nitrogen 54 mg/dL (7-17); Calcium 8.9 mg/dL (8.4-10.2); Carbon Dioxide 33 mmol/L (22-30); Chloride 101 mmol/L (98-107); Estimated CRCL calculation 33 ml/min; Estimated Glomerular Filt Rate 31; Glucose 132 mg/dL (65-110); INR 2.4; Potassium 4.6 mmol/L (3.4-5.0); Prothrombin Time 25.4 Seconds (11.1-14.7); Sodium 137 mmol/L (137-145)
[2022-04-22 07:49] LABS: Glucose Point of Care 122 mg/dl (65-105)
[2022-04-22 07:52] VITALS: O2SAT 96
[2022-04-22] MEDS: FLUTICASONE/SALMETEROL 115-21 MCG INHALER 1 PUFF 2 PUFF INHALATION (07:53)
[2022-04-22] MEDS: UMECLIDINIUM BROMIDE 62.5 MCG ELLIPTA 1 PUFF INHALATION (07:53)
[2022-04-22] MEDS: INSULIN ASPART (*BKC) 100 UNITS/ML 10 UNITS SUB-Q ×2 (08:53→12:27)
[2022-04-22] MEDS: SERTRALINE HCL 50 MG TABLET PO (08:54)
[2022-04-22] MEDS: ASPIRIN 81 MG ENTERIC TABLET PO (08:54)
[2022-04-22] MEDS: SPIRONOLACTONE 25 MG TABLET PO (08:54)
[2022-04-22] MEDS: SUCRALFATE 1 GM TABLET PO ×2 (08:54→12:26)
[2022-04-22] MEDS: predniSONE 10 MG TABLET PO (08:54)
[2022-04-22] MEDS: PANTOPRAZOLE 40 MG TABLET PO (08:54)
[2022-04-22] MEDS: ATORVASTATIN 40 MG TABLET PO (08:54)
[2022-04-22] MEDS: FERROUS SULFATE 324 MG TABLET PO (08:54)
[2022-04-22] MEDS: busPIRone HCL 10 MG TABLET PO ×2 (08:54→12:26)
[2022-04-22] MEDS: METOPROLOL TARTRATE 50 MG TAB PO (08:54)
[2022-04-22] MEDS: INSULIN GLARGINE (*BKC) 100 UNITS/ML 34 UNITS SUB-Q (08:58)
--- NOTE | 2022-04-22 09:16 | PC.NURSE ---
;Pt IV access infiltrated. Veins in extremities very small. Refuses IV stick to every vein this nurse suggested. Unable to restart IV.
[2022-04-22] MEDS: HYDROcodone/acetaminophen (*CRX) 5-325 MG TABLET 1 TAB PO (09:19)
--- NOTE | 2022-04-22 10:45 | P.PNNP_ITS ---
Progress Note: A&P Assessment and Plan (1) ANNEMARIE (acute kidney injury): Code(s): N17.9 - Acute kidney failure, unspecified Status: Acute Assessment and Plan: * improving (if not resolved) * due to CHF exacerbation (?) * creatinine better after IV diuretics (element of renal venous HTN?) * follow trend of renal function with IV bumex * renal ultrasound c/w CKD * follow repeat labs and UOP (2) Stage 3b chronic kidney disease: Code(s): N18.32 - Chronic kidney disease, stage 3b Status: Chronic Assessment and Plan: * baseline creatinine seems to run 1.4 - 1.7mg/dl * likely secondary to DM, HTN, and vascular disease (CAD + hyperlipidemia + CVA + CHF...etc) * follows with Dr. Lc Gonsales for CKD management (3) Acute and chronic respiratory failure: Code(s): J96.20 - Acute and chronic respiratory failure, unspecified whether with hypoxia or hypercapnia Status: Acute Assessment and Plan: * as noted by presentation symptoms of tachypnea/retractions * presumably related to her COPD and CHF * treatment as noted (see #4 and #5) (4) CHF exacerbation: Qualifiers: Heart failure type: unspecified Qualified Code(s): I50.9 - Heart failure, unspecified Code(s): I50.9 - Heart failure, unspecified Status: Acute Assessment and Plan: * as noted by dyspnea, LE edema, elevated BNP, and increase in weight (despite negative CXR) * suspect acute on chronic diastolic heart failure based on last Echo * renal function tolerating IV diuretics at this time * prehaps a component of renal venous HTN which is being treated with diuretic therapy * follow I/Os, daily weights, and respiratory status (5) COPD (chronic obstructive pulmonary disease): Code(s): J44.9 - Chronic obstructive pulmonary disease, unspecified Status: Acute Assessment and Plan: * some wheezing noted on presentation * related to COPD versus CHF * continue inhalers and steroids * nebulizer treatments as needed (6) History of atrial fibrillation: Code(s): Z86.79 - Personal history of other diseases of the circulatory system Status: Acute Assessment and Plan: * rate control strategy * on anticoagulation (7) Diabetes: Code(s): E11.9 - Type 2 diabetes mellitus without complications Status: Chronic Assessment and Plan: * follow accuchecks * glycemic control per hospitalists Will continue to follow. Subjective Date/time seen: 04/22/22 10:45 Appears to be doing reasonably well at the time of my visit; breathing as well as lower extremity swelling/edema continue to improved if not stabilize with current interventions; no apparent distress voiced at this time; no issues overnight or earlier this AM. Exam 2 Narrative: General: WD/WN female in NAD Heart: normal S1 and S2; no rub Lungs: decreased at the bases Abdomen: soft, nontender, nondistended, positive bowel sounds Extremities: no cyanosis or clubbing; trace edema Skin: no rash Objective Data Vital Signs Vital Signs: Vital Signs Temp Pulse Resp BP Pulse Ox O2 Del Method O2 Flow Rate 04/22/22 07:52 96 Nasal Cannula 4 04/22/22 06:00 97 F L 73 14 129/74 100 04/21/22 22:00 96.9 F L 86 14 142/81 H 98 04/21/22 20:00 98 Nasal Cannula 4 04/21/22 20:42 86
--- NOTE | 2022-04-22 10:45 | PM.PNNEP ---
Progress Note: A&P Assessment and Plan (1) ANNEMARIE (acute kidney injury): Code(s): N17.9 - Acute kidney failure, unspecified Status: Acute Assessment and Plan: improving (if not resolved) due to CHF exacerbation (?) creatinine better after IV diuretics (element of renal venous HTN?) follow trend of renal function with IV bumex renal ultrasound c/w CKD follow repeat labs and UOP (2) Stage 3b chronic kidney disease: Code(s): N18.32 - Chronic kidney disease, stage 3b Status: Chronic Assessment and Plan: baseline creatinine seems to run 1.4 - 1.7mg/dl likely secondary to DM, HTN, and vascular disease (CAD + hyperlipidemia + CVA + CHF...etc) follows with Dr. Lc Gonsales for CKD management (3) Acute and chronic respiratory failure: Code(s): J96.20 - Acute and chronic respiratory failure, unspecified whether with hypoxia or hypercapnia Status: Acute Assessment and Plan: as noted by presentation symptoms of tachypnea/retractions presumably related to her COPD and CHF treatment as noted (see #4 and #5) (4) CHF exacerbation: Qualifiers: Heart failure type: unspecified Qualified Code(s): I50.9 - Heart failure, unspecified Code(s): I50.9 - Heart failure, unspecified Status: Acute Assessment and Plan: as noted by dyspnea, LE edema, elevated BNP, and increase in weight (despite negative CXR) suspect acute on chronic diastolic heart failure based on last Echo renal function tolerating IV diuretics at this time prehaps a component of renal venous HTN which is being treated with diuretic therapy follow I/Os, daily weights, and respiratory status (5) COPD (chronic obstructive pulmonary disease): Code(s): J44.9 - Chronic obstructive pulmonary disease, unspecified Status: Acute Assessment and Plan: some wheezing noted on presentation related to COPD versus CHF continue inhalers and steroids nebulizer treatments as needed (6) History of atrial fibrillation: Code(s): Z86.79 - Personal history of other diseases of the circulatory system Status: Acute Assessment and Plan: rate control strategy on anticoagulation (7) Diabetes: Code(s): E11.9 - Type 2 diabetes mellitus without complications Status: Chronic Assessment and Plan: follow accuchecks glycemic control per hospitalists Will continue to follow. Subjective Date/time seen: 04/22/22 10:45 Appears to be doing reasonably well at the time of my visit; breathing as well as lower extremity swelling/edema continue to improved if not stabilize with current interventions; no apparent distress voiced at this time; no issues overnight or earlier this AM. Exam Narrative: General: WD/WN female in NAD Heart: normal S1 and S2; no rub Lungs: decreased at the bases Abdomen: soft, nontender, nondistended, positive bowel sounds Extremities: no cyanosis or clubbing; trace edema Skin: no rash Objective Data Vital Signs Vital Signs: Vital Signs Temp Pulse Resp BP Pulse Ox O2 Del Method O2 Flow Rate 04/22/22 07:52 96 Nasal Cannula 4 04/22/22 06:00 97 F L 73 14 129/74 100 04/21/22 22:00 96.9 F L 86 14 142/81 H 98 04/21/22 20:00 98 Nasal Cannula 4 04/21/22 20:42 86 04/21/22 14:00 98.1 F 75 12 127/83 99 Intake/Output Intake/Output: Intake & Output 04/19/22 04/20/22 04/21/22 04/22/22 23:59 23:59 23:59 23:59 Intake Total 1804 1510 2002 982 Output Total 800 2800 1000 Balance 1804 710 -798 -18 Meds/Results Medications: Active Medications Generic Name Dose Route Start Last Admin Trade Name Freq PRN Reason Stop Dose Admin Acetaminophen 650 mg 04/19/22 11:23 Acetaminophen 325 Mg Tablet PO Q6H PRN Mild Pain (1-3) or Fever Hydrocodone Bitart/Acetaminophen 1 tab 04/19/22 11:23 04/22/22 09:19 Hydrocodone/Acetamin
[2022-04-22 11:21] LABS: Glucose Point of Care 194 mg/dl (65-105)
[2022-04-22] MEDS: BUMETANIDE INJ 1 MG/4 ML VIAL IV PUSH (12:06)
[2022-04-22 14:00] VITALS: BP 148/90; PULSE 70; RESP 18; TEMP 36.2; O2SAT 97
[2022-04-22 14:26] LABS: Glucose Point of Care 152 mg/dl (65-105)
[2022-04-22 14:53] LABS: Glucose Point of Care 144 mg/dl (65-105)
--- NOTE | 2022-04-22 15:37 | PM.DS ---
DS: Admitting Diagnosis Discharge Date 04/22/22 Admitting Diagnosis Shortness of breath DS: Discharge Diagnosis Discharge Diagnosis (1) Acute and chronic respiratory failure: Code(s): J96.20 - Acute and chronic respiratory failure, unspecified whether with hypoxia or hypercapnia Status: Acute (2) Acute on chronic renal failure: Qualifiers: Acute renal failure type: unspecified Code(s): N17.9 - Acute kidney failure, unspecified; N18.9 - Chronic kidney disease, unspecified Status: Acute (3) CHF exacerbation: Qualifiers: Heart failure type: unspecified Qualified Code(s): I50.9 - Heart failure, unspecified Code(s): I50.9 - Heart failure, unspecified Status: Acute (4) COPD (chronic obstructive pulmonary disease): Code(s): J44.9 - Chronic obstructive pulmonary disease, unspecified Status: Acute (5) History of atrial fibrillation: Code(s): Z86.79 - Personal history of other diseases of the circulatory system Status: Acute (6) Supratherapeutic INR: Code(s): R79.1 - Abnormal coagulation profile Status: Acute (7) Diabetes: Code(s): E11.9 - Type 2 diabetes mellitus without complications Status: Chronic (8) Lymphadenopathy: Code(s): R59.1 - Generalized enlarged lymph nodes Status: Acute DS: Summary Hospital Course Reason for hospitalization: 61yo female with CHF, COPD and chronic respiratory failure here for SOB.? Please see H&P for details. Hospital Course: Patient presented with SOB, increasing pedal edema and weight gain. CXR showing atelectasis and CMG. CXR may not be accurate for CHF findings since she has COPD. BNP was 5260. Echo in 2020 showing EF 70%, Grade II diastolic dysfunction, bioprosthetic mitral valve and mild pHTN (she follows with Cardiology). Echo not repeated since she may have had a recent Echo by her [employer]. Patient with?acute on chronic diastolic CHF. She tolerated IV Bumex.? She clinically improved. Patient did develop respiratory difficulty related to acute on chronic leg pain with tachypnea, retractions. She was able to control her symptoms. Pain management regiment started with improvement. ? She remained stable on her home 4 L oxygen.?Patient with baseline Cr 1.4-1.7 range. Cr was 2.2 on admission. She was started on Bumex and she tolerated this well. Cr better at 1.7. Nephrology consulted and appreciate their input. Patient with steroid-dependent COPD. Scattered wheezing either COPD exacerbation or 'cardiac' wheezing from the pulmonary edema; symptoms improved so favor the latter. Stable on her chronic 4L O2. We continued Advair and Albuterol prn. Patient is on anticoagulation for pAFib and for bioprosthetic MV. EKG reviewed showing normal sinus rhythm. We continued metoprolol. INR was 5.1 on admission and better today. Hgb normal. No evidence of acute blood loss. We resumed Coumadin. Discussed with Cardiology who stated patient needs Coumadin due to her valve disease. A1c 8.2. ?She was monitored with [employer] covering with sliding scale.? Hypoglycemia protocol was available as needed.?We resumed her home medications at lower doses. Patient with diabetic neuropathy that results in severe bilateral LE pain. We continued her medications and pain became better controlled. She had fullness in the supraclavicular area. CT chest in 02/2021 showing left supraclavicular lymphadenopathy.? CT of the neck and chest this admission continues to show lymphadenopathy but no change and felt to be a benign finding. Patient made aware. Patient overall did well and was able to be discharged home on 04/22/22 Status at Discharge Cognitive/behavioral status at discharge: Stable Time Spent with Patient Time attestation: Total time spent providing and/or coordinating discharge services: 35 minutes Time spent: Greater than 30 minutes Exam Narrative: AF 148/90 70 18 97% 4L Gen - NARD Ches
[2022-04-22] MEDS: MORPHINE SULFATE (*CRX) 2 MG/ML INJ IV PUSH (16:01)
[2022-04-22 16:16] LABS: Glucose Point of Care 126 mg/dl (65-105)
== END 2022-04-22 18:20 | disposition home health service (06) | DRG 133 ==
LOC: ANHED 19:55 → ANH3MEDSUR 22:41
PROVIDERS: Internal Medicine Nephrology; Admitting Provider Internal Medicine; Emergency Provider Emergency Medicine; PCP Physician Assistant; Visit Provider Internal Medicine
DX: J96.20 Acute and chronic respiratory failure, unspecified whether with hypoxia or hypercapnia (principal); I50.33 Acute on chronic diastolic (congestive) heart failure; N17.9 Acute kidney failure, unspecified; I13.0 Hypertensive heart and chronic kidney disease with heart failure and stage 1 through stage 4 chronic kidney disease, or unspecified chronic kidney disease; D63.1 Anemia in chronic kidney disease; E11.22 Type 2 diabetes mellitus with diabetic chronic kidney disease; E11.42 Type 2 diabetes mellitus with diabetic polyneuropathy; E11.51 Type 2 diabetes mellitus with diabetic peripheral angiopathy without gangrene; E78.5 Hyperlipidemia, unspecified; G89.29 Other chronic pain; I25.2 Old myocardial infarction; I25.10 Atherosclerotic heart disease of native coronary artery without angina pectoris; J44.9 Chronic obstructive pulmonary disease, unspecified; I48.91 Unspecified atrial fibrillation; M79.604 Pain in right leg; M79.605 Pain in left leg; N18.32 Chronic kidney disease, stage 3b; R79.1 Abnormal coagulation profile; R59.1 Generalized enlarged lymph nodes; Z86.73 Personal history of transient ischemic attack (TIA), and cerebral infarction without residual deficits; Z90.710 Acquired absence of both cervix and uterus; Z90.49 Acquired absence of other specified parts of digestive tract; Z95.4 Presence of other heart-valve replacement; Z87.891 Personal history of nicotine dependence; Z20.822 Contact with and (suspected) exposure to COVID-19; Z79.01 Long term (current) use of anticoagulants; Z79.4 Long term (current) use of insulin; Z99.81 Dependence on supplemental oxygen; Z79.82 Long term (current) use of aspirin
CPT/HCPCS: 36415; 36600; 70490; 71046; 71250; 73620; 76775; 80048; 80053; 80069; 82550; 82805; 82948; 83036; 83735; 83880; 84100; 84443; 85025; 85027; 85610; 85730; 85999; 87636; 93005; 94640; 96374; 96375; 96376; 99285; A9270; G0378; G0379; J1815; J2270; J3010; J7512